=== PATIENT | female | born 1940 | race Caucasian/White ===

== ENCOUNTER 2021-06-15 13:42 | Outpatient (REF) | payer MEDICARE, SELFPAY ==
--- NOTE | ~2021-06-15 | US_ITS ---
EXAMINATION: US VENOUS ULTRASOUND WITH DOPPLER LOWER EXTREMITY, LEFT CLINICAL INFORMATION: Edema COMPARISON: None TECHNIQUE: Ultrasound of the deep veins is performed from the hip to the calf with compression sonography and color and pulse Doppler assessment. Spectral analysis with color-flow imaging is performed. FINDINGS: There is normal venous compression and respiratory variation and augmented flow. The visualized common femoral vein, superficial femoral vein, profunda femoral vein, popliteal vein, and the trifurcation region shows no evidence of deep venous thrombosis. There is no significant popliteal fossa cyst. In the proximal thigh there are enlarged lymph nodes. There is a 4.5 x 2.2 x 2.3 cm lymph node. There is an adjacent 4.2 x 2.2 x 3.2 cm left. There is a small popliteal fossa cyst. Measures 1.5 x 0.5 x 0.8 cm. If the patient's symptoms persist, followup ultrasound in 5 days 7 days might be of value to exclude proximal propagation from a non-visualized calf vein. US/US venous duplex LE LT IMPRESSION: 1. No DVT demonstrated in the left lower extremity. 2. Enlarged lymph nodes in the left proximal thigh. 3. Small popliteal cyst.
== END 2021-06-15 13:43 | disposition home or self-care (01) ==
LOC: HO.US 13:42
PROVIDERS: PCP Internal Medicine; Visit Provider Nurse Practitioner Primary Care
DX: R60.0 Localized edema (principal); M79.89 Other specified soft tissue disorders
CPT/HCPCS: 93971

== ENCOUNTER 2021-06-29 11:43 | Outpatient (REF) | payer MEDICARE, SELFPAY ==
--- NOTE | ~2021-06-29 | MM_ITS ---
EXAMINATION: MM SCREENING DIGITAL BREAST TOMOSYNTHESIS, BILATERAL CLINICAL INFORMATION: Age 81. Screening mammography. Currently under treatment for lymphoma. Family history breast cancer, daughter. Prior outside mammography from [place] currently unavailable. Personal history unilateral breast cancer and contralateral benign breast biopsy. COMPARISON: None. TECHNIQUE: Digital breast tomosynthesis is performed in both the craniocaudal and mediolateral oblique views along with computer-aided detection (CAD). Synthesized 2D images are generated from the tomosynthesis. Case discussed with the process safety engineering technologist. Technically challenging exam. Images optimized to patient capabilities. Breast images obtained. FINDINGS: The breasts are heterogeneously dense, which may obscure small masses (ACR BI-RADS breast composition Category c). Breast tissue composition borders on extremely dense. There is asymmetry of the breast size, right smaller. Neither breast shows significant mass or architectural abnormality or abnormal calcifications. There is biopsy clip marker mid upper outer left breast and probable clip marker mid upper right breast. Scattered benign round and coarse and vascular calcifications are present. Skin contours are smooth. The axilla are unremarkable. MM/MM tomosynthesis screening BI IMPRESSION: No mammographic evidence of malignancy. ASSESSMENT: BI-RADS 2: Benign RECOMMENDATION: Routine annual mammography screening. This patient's information was entered into a reminder system with a target due date for their next mammogram.
== END 2021-06-29 11:44 | disposition home or self-care (01) ==
LOC: HO.MAMMO 11:43
PROVIDERS: Visit Provider Internal Medicine
DX: Z12.31 Encounter for screening mammogram for malignant neoplasm of breast (principal)
CPT/HCPCS: 77063; 77067

== ENCOUNTER 2021-10-29 12:23 | Outpatient (REF) | payer MEDICARE, SELFPAY ==
--- NOTE | ~2021-10-29 | XR_ITS ---
EXAMINATION: XR chest 2V CLINICAL INFORMATION: Pain COMPARISON: No prior chest x-ray available in our system for comparison at the time of this dictation. TECHNIQUE: XR chest 2V Lungs and Kaylyn: Mild increased interstitial lung markings otherwise Both lungs are clear. Pleura: Normal. Costophrenic angles are sharp. No pneumothorax. Heart: The heart is normal in size. Mediastinum: The mediastinum is within normal limits.. Bones: Skeletal structures included are normal for patient's age. XR/XR chest 2V IMPRESSION: Mild nonspecific diffuse increased interstitial lung markings, exam otherwise normal.
== END 2021-10-29 12:24 | disposition home or self-care (01) ==
LOC: HO.LAB 12:23
PROVIDERS: PCP Internal Medicine; Visit Provider Internal Medicine
DX: M54.9 Dorsalgia, unspecified (principal); D64.9 Anemia, unspecified; E11.9 Type 2 diabetes mellitus without complications
CPT/HCPCS: 71046

== ENCOUNTER 2021-12-28 13:11 | Outpatient (REF) | payer MEDICARE, SELFPAY ==
--- NOTE | ~2021-12-28 | XR_ITS ---
EXAMINATION: XR CHEST CLINICAL INFORMATION: Cough COMPARISON: Previous chest x-ray October 2021 TECHNIQUE: 2 views of the chest were obtained. FINDINGS: No significant abnormality is noted involving the heart, lungs, mediastinum, bony thorax or soft tissues. There are degenerative changes of the spine. XR/XR chest 2V IMPRESSION: No evidence for acute disease in the chest.
== END 2021-12-28 13:12 | disposition home or self-care (01) ==
LOC: HO.XRAY 13:11
PROVIDERS: PCP Internal Medicine; Visit Provider Internal Medicine
DX: J40 Bronchitis, not specified as acute or chronic (principal)
CPT/HCPCS: 71046

== ENCOUNTER → 2022-03-07 15:22 | Outpatient (BNVA) | payer SELFPAY | PROVIDERS: PCP General Practice; Visit Provider Internal Medicine | DX: U09.9 Post COVID-19 condition, unspecified (principal); R05.9 Cough, unspecified | CPT/HCPCS: 99212 ==

== ENCOUNTER → 2022-04-04 12:36 | Outpatient (REF) | payer SELFPAY ==
--- NOTE | 2022-04-04 12:41 | HM_ITS ---
Conclusion: 1. Patient was monitored for total period of 2 days 2. Baseline was normal sinus rhythm with average heart of 72 beats per minute 3. No significant pauses or bradycardia noted 4. Occasional PACs with total burden of 0.5% 5. No patient reported events MTDD
== END ==
LOC: HO.CARD 12:36
PROVIDERS: Visit Provider Registered Nurse
DX: R00.0 Tachycardia, unspecified (principal)
CPT/HCPCS: 93225

== ENCOUNTER 2022-08-17 07:50 | Outpatient (REF) | payer MEDICARE, SELFPAY ==
--- NOTE | ~2022-08-17 | MM_ITS ---
EXAMINATION: MM SCREENING DIGITAL BREAST TOMOSYNTHESIS, BILATERAL CLINICAL INFORMATION: Screening. Asymptomatic. Personal history lymphoma. COMPARISON: Mammography: 06/29/2021 (new baseline). TECHNIQUE: Digital breast tomosynthesis is performed in both the craniocaudal and mediolateral oblique views along with computer-aided detection (CAD). Synthesized 2D images are generated from the tomosynthesis. Additional right MLO view is provided. FINDINGS: The breasts are heterogeneously dense, which may obscure small masses (ACR BI-RADS breast composition Category c). Breast tissue composition borders on extremely dense. Parenchymal pattern is similar to prior new baseline exam. Again, there is decreased right breast size consistent with prior surgery. There are biopsy clip markers mid upper right breast and mid outer left breast again seen. There is no significant mass or developing density. No architectural abnormality. There are scattered bilateral benign vascular and round and coarse calcifications. The axilla and skin contours are unremarkable. No significant changes. MM/MM tomosynthesis screening BI IMPRESSION: -No significant changes from prior new baseline exam. -No mammographic evidence of malignancy. ASSESSMENT: BI-RADS 2: Benign RECOMMENDATION: Routine annual mammography screening. This patient's information was entered into a reminder system with a target due date for their next mammogram.
== END 2022-08-17 07:51 | disposition home or self-care (01) ==
LOC: HO.MAMMO 07:50
PROVIDERS: PCP Registered Nurse; Visit Provider General Practice
DX: Z12.31 Encounter for screening mammogram for malignant neoplasm of breast (principal)
CPT/HCPCS: 77063; 77067

== ENCOUNTER 2022-10-18 14:27 | Outpatient (REF) | payer MEDICARE, SELFPAY ==
[2022-10-18 16:53] LABS: Alanine Aminotransferase 12 U/L (0-31); Albumin Level 4.1 g/dL (3.5-5.0); Alkaline Phosphatase 99 U/L (39-117); Anion Gap 13 (12-20); Aspartate Amino Transferase 14 U/L (5-31); Bilirubin Total 0.3 mg/dL (0.0-1.0); Blood Urea Nitrogen 16 mg/dL (9-16); Calcium 10.7 mg/dL (8.4-10.2); Carbon Dioxide 27 mmol/L (22-29); Chloride 106 mmol/L (96-108); Estimated Glomerular Filt Rate > 60; Glucose Random 70 mg/dL (60-115); Potassium 4.1 mmol/L (3.3-5.1); Sodium 142 mmol/L (135-145); Total Protein 7.5 g/dL (6.5-8.0)
[2022-10-18 17:11] LABS: TSH reflex Free T4 0.83 uIU/mL (0.32-4.0)
== END 2022-10-18 14:28 | disposition home or self-care (01) ==
LOC: HO.HHCL 14:27
PROVIDERS: Visit Provider General Practice
DX: D51.9 Vitamin B12 deficiency anemia, unspecified (principal)
CPT/HCPCS: 36415; 80053; 84443; 84550

== ENCOUNTER 2022-12-19 14:52 | Outpatient (REF) | payer MEDICARE, SELFPAY ==
--- NOTE | ~2022-12-19 | XR_ITS ---
EXAMINATION: XR CHEST 2 VIEW CLINICAL INFORMATION: Cough COMPARISON: 12/28/2021 TECHNIQUE: PA and lateral views of the chest obtained. FINDINGS: The lungs are clear. There are no pleural effusions. The cardiomediastinal silhouette is normal. Spondylotic changes are again evident in the dorsal spine. XR/XR chest 2V IMPRESSION: No acute cardiopulmonary disease.
== END 2022-12-19 14:53 | disposition home or self-care (01) ==
LOC: HO.HHCX 14:52
PROVIDERS: Visit Provider Emergency Medicine
DX: R05.1 Acute cough (principal)
CPT/HCPCS: 71046

== ENCOUNTER → 2023-07-03 12:44 | Outpatient (REF) | payer MEDICARE, SELFPAY ==
--- NOTE | 2023-07-03 12:49 | CA_ITS ---
Transthoracic Echocardiogram Patient (Last, First, Middle): Bhumi Poole, Gender: Female Date of : 1940 Age: 83 Procedure Date: 07/03/2023 Procedure Type: Transthoracic Echocardiogram Location: OP Height: 157.48 cm Weight: 58.97 kg BSA: 1.59 m2 Heart Rate: 101 bpm BP: 168 / 80 mmHg Shaper And Presser: SB Referring MD: Brooke Tejeda MD Symptoms: R01.1 MURMUR Study Quality: Fair ECG Rhythm: Tachycardia Conclusions: - The left ventricular systolic function is normal. The visually estimated ejection fraction is between 60-65%. - There is moderate septal asymmetric hypertrophy. - Paradoxical low-flow, low gradient severe aortic stenosis. Findings Procedure Information The quality of the study was technically difficult. The study quality is limited by patients body habitus. Left Ventricle Normal left ventricular cavity size. The left ventricular systolic function is normal. The visually estimated ejection fraction is between 60-65%. There is no evidence of regional wall motion abnormalities. Diastolic function is indeterminate on the basis of available data. There is moderate septal asymmetric hypertrophy. Right Ventricle Normal right ventricular cavity size and systolic function. Atria Both atria are normal in size. Aortic Valve There is moderate calcification of the aortic valve. The peak aortic velocity is 2.80 m/s with a calculated peak gradient of 31 mmHg. The mean gradient is 19 mmHg. The aortic valve area is 0.70 cm2. There is no aortic valve regurgitation. Dimensionless index 0.29. Stroke volume index 26 ml/m2. Overall, findings suggestive of paradoxical low-flow, low gradient severe aortic stenosis. Mitral Valve There is mild mitral annular calcification. There is no mitral valve regurgitation. There is no mitral valve stenosis. Pulmonic Valve The pulmonic valve is likely normal. Tricuspid Valve There is trace tricuspid valve regurgitation. There is no evidence of pulmonary hypertension. Great Vessels The asc aorta is normal in size. Venous The inferior vena cava is normal in size and collapses less than 50% with inspiration. Pericardium/Pleural There is no evidence of pericardial effusion. Prior Study Comparison No prior study available for comparison. Measurements 2D Linear Measurements IVSd: 1.31 0.6-0.9/0.6-1.0 cm LVIDd: 4.13 3.9-5.3/4.2-5.9 cm LVIDd Index: 2.60 2.4-3.2/2.2-3.1 cm/m2 LVIDs: 2.65 2.0-3.6 cm LVPWd: 0.75 0.7-1.1 cm LA Diam: 3.60 2.7-3.8/3.0-4.0 cm LAIDs Index: 2.26 1.5-2.3 cm/m2 LV Mass: 173.76 67-162/88-224 g LV Mass Index: 109.28 43-95/49-115 g/m2 LVOT Diam: 1.80 3.0+(-)1.3 cm 2D Systolic Function EF 4C: 53.70 >55% Mitral Valve MV Pk E: 0.84 MV PK A: 1.43 E/A: 0.60 E'Lateral: 3.81 E/E' Lat: 22.10 Aortic Valve AoV Pk Baljinder: 2.80 AoV Mn Baljinder: 2.02 AoV VTI: 0.61 AoV Pk Grad: 31.00 Aov Mn Grad: 19.00 AUBRIE Cont.VTI: 0.70 LVOT LVOT Pk Baljinder: 0.81 LVOT Mn Baljinder: 0.55 LVOT VTI: 0.17 LVOT Pk Grad: 3.00 LVOT Mn Grad: 1.00 LVOT Diam: 1.80 LVOT Area: 2.54 Diastolic Function MV Pk E: 0.84 MV Pk A: 1.43 E/A: 0.60 E' Laterial: 3.81 E/E' Lat: 22.10 Right Ventricle TAPSE (mm): 18.40 TVS' Baljinder: 11.00 Tricuspid Valve TR Pk Baljinder: 2.33 TR Pk Grad: 22.00 RA Press: 8.00 RVSP: 30.00 Great Vessels Aorta Sinus of Valsalva: 2.50 2.0-3.5 cm Ao Asc: 3.30 2.1-3.4 cm Pulmonary Valve PV Pk Baljinder: 0.79 Peak PV Grad: 2.00 Updated in Other Vendor System with Status of Final Moody Durán MD electronically signed on 07/04/2023 10:21:02 AM with status of Final
== END ==
LOC: HO.CARD 12:44
PROVIDERS: PCP General Practice; Visit Provider General Practice
DX: R01.1 Cardiac murmur, unspecified (principal)
CPT/HCPCS: 93306

== ENCOUNTER → 2023-07-03 12:49 | Outpatient (BNV) | payer MEDICARE, SELFPAY | PROVIDERS: PCP General Practice; Visit Provider Internal Medicine | DX: I35.0 Nonrheumatic aortic (valve) stenosis (principal); I35.8 Other nonrheumatic aortic valve disorders; I34.81 Nonrheumatic mitral (valve) annulus calcification | CPT/HCPCS: 93306 ==

== ENCOUNTER 2023-08-23 09:55 | Outpatient (REF) | payer MEDICARE, SELFPAY ==
--- NOTE | ~2023-08-23 | MM_ITS ---
EXAMINATION: MM SCREENING DIGITAL BREAST TOMOSYNTHESIS, BILATERAL CLINICAL INFORMATION: Screening. Asymptomatic. COMPARISON: Mammography: This study is compared with prior exams dating back to 2021. TECHNIQUE: Digital breast tomosynthesis is performed in both the craniocaudal and mediolateral oblique views along with computer-aided detection (CAD). Synthesized 2D images are generated from the tomosynthesis. FINDINGS: The breasts are heterogeneously dense, which may obscure small masses (ACR BI-RADS breast composition Category c). The right breast is smaller than the left breast from prior surgery. There are no significant masses, abnormal calcifications, or other abnormalities. Biopsy tissue markers are present in each breast. There are bilateral, benign breast calcifications. MM/MM tomosynthesis screening BI IMPRESSION: No mammographic evidence of malignancy. ASSESSMENT: BI-RADS BI-RADS 2 - Benign Findings RECOMMENDATION: Routine annual mammography screening. 1 year F/U This examination should not preclude the clinical evaluation of a suspicious palpable abnormality. This patient's information was entered into a reminder system with a target due date for their next mammogram.
== END 2023-08-23 09:56 | disposition home or self-care (01) ==
LOC: HO.MAMMO 09:55
PROVIDERS: PCP General Practice; Visit Provider General Practice
DX: Z12.31 Encounter for screening mammogram for malignant neoplasm of breast (principal)
CPT/HCPCS: 77063; 77067

== ENCOUNTER → 2023-08-23 10:00 | Outpatient (BNV) | payer MEDICARE, SELFPAY | PROVIDERS: PCP General Practice; Visit Provider Radiology Diagnostic Radiology | DX: Z12.31 Encounter for screening mammogram for malignant neoplasm of breast (principal) | CPT/HCPCS: 77063; 77067 ==

== ENCOUNTER 2023-10-28 09:19 | Outpatient (AMB) | payer MEDICARE, SELFPAY ==
[2023-10-28 09:26] VITALS: BP 172/88; PULSE 100; BMI 24.9
--- NOTE | 2023-10-28 09:26 | MHC.OFFVIS ---
Vital Signs 10/28/23 09:26 Height 5 ft 2 in Weight 136 lb 3.931 oz BMI 24.9 BP 172/88 H Blood Pressure Location Lt brachial Position Sitting Pulse 100 Intake Visit Reasons: transit planner/dr gutierrez/severe aortic stenosis Collector Required: Yes Collector Services: Collector Present Collector Name: Luz Elena [id number]/monik Accompanied by: Daughter Allergies No Known Allergies Allergy (Verified 03/07/22 15:47) Medication List - Last Reconciled 10/28/23 by Moody Durán MD albuterol sulfate 90 mcg/actuation 2 puffs inhalation Q6H PRN allopurinol 300 mg PO DAILY blood sugar diagnostic ([employer] Ultra Test strips) As directed losartan 100 mg PO DAILY metformin 500 mg PO DAILY metoprolol succinate ER 50 mg PO DAILY HPI Comments Details: Bhumi is here for consultation regarding aortic stenosis. A recent echocardiogram at shown paradoxical, low-flow, low gradient severe aortic stenosis. Patient herself denies any symptoms like angina or shortness of breath. Her daughter states that she does well without any concerns. She has a history of lymphoma but that is also under control. Will need to get records from [facility] about that part. Currently not on chemotherapy. Otherwise, no previous history like coronary artery disease or myocardial infarction or cardiomyopathy or in fact anything cardiac related. [facility] Medical History (Updated 10/28/23 @ 10:05 by Moody Durán MD) Type 2 diabetes mellitus with unspecified complications Lymphoma Essential hypertension Cough Post covid-19 condition, unspecified Family History Father No problems noted. Mother No problems noted. Social History (Updated 10/28/23 @ 09:33 by Vanda Hawley CMA) Comment: social/rare Patient Tobacco Use Status: Former Tobacco user Review of Systems Const Denies chills, Denies daytime sleepiness, Denies fatigue, Denies fever(s), Denies poor appetite, Denies snoring, Denies stops breathing during sleep, Denies weakness, Denies weight gain and Denies weight loss Eyes Denies loss of vision ENT Denies dizziness and Denies hearing loss Card Denies chest pain, Denies irregular heart rhythm, Denies claudication, Denies leg edema, Denies lightheadedness, Denies palpitations, Denies dyspnea on exertion and Denies orthopnea Resp Denies cough, Denies excessive phlegm production, Denies dyspnea on exertion, Denies snoring and Denies wheezing GI Denies abdominal pain, Denies hematochezia, Denies change in bowel habits, Denies nausea and Denies vomiting Denies urinary frequency and Denies dysuria Musc Denies arthralgias, Denies muscle weakness, Denies numbness and Denies other Skin/Breast Denies nail changes and Denies rash Neuro Denies Abnormal speech present, Denies dizziness, Denies loss of vision, Denies memory loss, Denies numbness and Denies weakness Psych Denies depression and Denies memory loss Endo Denies fatigue and Denies palpitations Chester/Lymph Denies easy bruising Aller/Immun Denies wheezing Physical Exam Vital Signs: Last Vital Signs Pulse 100 10/28/23 09:26 BP 172/88 H 10/28/23 09:26 BMI result Body Mass Index 24.9 Const General: comfortable and no acute distress Orientation/consciousness: patient oriented x3 HEENT Other: Unremarkable Head: Yes normal to inspection Neck Neck: Yes normal visual inspection Chest Chest palpation & inspection: normal inspection of the chest Resp Auscultation: clear to auscultation bilaterally Cardio Palpation: normal PMI Heart sounds: S1 normal heart sound present, S2 abnormal (Soft), no gallops, Murmur heart sound present systolic III/ and no rubs GI Palpation (GI): Soft to palpation Back/Spine/Pelvis Other: unremarkable Skin General skin exam: no rashes or lesions noted Neuro General: patient oriented x3 Speech: No Abnormal speech present Extrem General: Yes normal to inspection Psych Mental Status: mental status grossly normal Office Procedures EKG Details: EKG with sinus tachycardia at 101/Min; no significant ST-T changes; [place] [address]-[id number], Complete Assessment & Plan Assessment & Plan (1) Non-rheumatic aortic stenosis: Code(s): I35.0 - Nonrheumatic aortic (valve) stenosis Category: Medical Plan: In the recent echocardiogram, LVEF is 60-65%. There is moderate septal hypertrophy. With regard to the aortic valve, moderately calcified. Mean gradient is 19 mm Hg. Calculated valve area of 0.7 sq cm. Dimensionless index 0.29. Overall, thought to be paradoxical, low-flow, low gradient, severe aortic stenosis. Pathophysiology of this discussed with patient and daughter. slitter creaser slotter helper used. As she feels quite well, they would like to postpone any intervention at this time. We discussed about TAVR but they would like to hold off. That seems reasonable in the absence of symptoms. We will recheck echocardiogram in March or so and follow her that time. In the interim, if any concerns like dizziness, chest pain, shortness of breath or any other cardiac concerns, advised him to immediately contact us. (2) Essential hypertension: Code(s): I10 - Essential (primary) hypertension Category: Medical Plan: Blood pressure is high but she is also quite anxious. No specific management for now. Continue usual medications. (3) Lymphoma: Code(s): C85.90 - Non-Hodgkin lymphoma, unspecified, unspecified site Category: Medical Plan: Per daughter, under control. Not on chemotherapy. Will review records from [facility]. Orders: Orders CA echo transthoracic complete 4 Months I35.0 - Nonrheumatic aortic (valve) stenosis Coding Level of Care Code New Pt Level 4 (94455) Diagnoses Non-rheumatic aortic stenosis I35.0 Essential hypertension I10 Lymphoma C85.90 CPT Codes EKG - CPT: 44714-[id number], Complete ([id number])
== END 2023-10-28 10:04 | disposition home or self-care (01) ==
PROVIDERS: PCP General Practice; Visit Provider Internal Medicine
DX: I35.0 Nonrheumatic aortic (valve) stenosis (principal); I10 Essential (primary) hypertension; C85.90 Non-Hodgkin lymphoma, unspecified, unspecified site; R00.0 Tachycardia, unspecified
CPT/HCPCS: 93010; 99214

== ENCOUNTER → 2023-10-28 09:19 | Outpatient (BNVA) | payer MEDICARE, SELFPAY | PROVIDERS: PCP General Practice; Visit Provider Internal Medicine | DX: I35.0 Nonrheumatic aortic (valve) stenosis (principal); I10 Essential (primary) hypertension; C85.90 Non-Hodgkin lymphoma, unspecified, unspecified site; R00.0 Tachycardia, unspecified | CPT/HCPCS: 93005; 99212 ==

== ENCOUNTER → 2024-02-27 09:37 | Outpatient (REF) | payer MEDICARE, SELFPAY ==
--- NOTE | 2024-02-27 09:40 | CA_ITS ---
Transthoracic Echocardiogram Patient (Last, First, Middle): Bhumi Poole, Gender: Female Date of : 1940 Age: 83 Procedure Date: 02/27/2024 Procedure Type: Transthoracic Echocardiogram Location: OP Height: 157.48 cm Weight: 61.24 kg BSA: 1.62 m2 Heart Rate: bpm BP: 140 / 68 mmHg Sprinkler Fitter Apprentice: TO Referring MD: Moody Durán MD Symptoms: I35.0 - Nonrheumatic aortic (valve) stenosis Study Quality: Fair Conclusions: - Normal left ventricular cavity size. There is normal left ventricular wall thickness. The left ventricular systolic function is hyperdynamic. The visually estimated ejection fraction is >70%. - Normal right ventricular cavity size. There is low normal right ventricular systolic function. - The left atrium is moderately dilated. - There is severe calcification of the aortic valve. There is severe aortic valve stenosis. The peak aortic velocity is 2.88 m/s. The mean gradient is 19 mmHg. The aortic valve area is 0.57 cm2. SVI 27. Findings Procedure Information The study quality is limited by the patients inability to tolerate the test. Left Ventricle Normal left ventricular cavity size. There is normal left ventricular wall thickness. The left ventricular systolic function is hyperdynamic. The visually estimated ejection fraction is >70%. There is no evidence of regional wall motion abnormalities. Diastolic function is indeterminate on the basis of available data. Right Ventricle Normal right ventricular cavity size. There is low normal right ventricular systolic function. Atria The left atrium is moderately dilated. The right atrium is normal in size. Aortic Valve There is severe calcification of the aortic valve. There is severe aortic valve stenosis. The peak aortic velocity is 2.88 m/s. The mean gradient is 19 mmHg. The aortic valve area is 0.57 cm2. There is no aortic valve regurgitation. Mitral Valve There is severe mitral annular calcification. There is no mitral valve regurgitation. There is no mitral valve stenosis. Pulmonic Valve The pulmonic valve is likely normal. Tricuspid Valve Normal tricuspid valve structure. There is trace tricuspid valve regurgitation. Normal right atrial pressure. There is no evidence of pulmonary hypertension. Great Vessels All visible segments of the aorta are normal in size. Venous The inferior vena cava is normal in size and collapses greater than 50% with inspiration. Pericardium/Pleural There is no evidence of pericardial effusion. Prior Study Comparison Changes noted compared to prior study dated: 07/03/2023. AUBRIE 0.57 cm2. Severe low flow low gradient . Measurements 2D Linear Measurements IVSd: 0.94 0.6-0.9/0.6-1.0 cm LVIDd: 3.96 3.9-5.3/4.2-5.9 cm LVIDd Index: 2.44 2.4-3.2/2.2-3.1 cm/m2 LVIDs: 2.55 2.0-3.6 cm LVPWd: 0.86 0.7-1.1 cm LA Diam: 3.30 2.7-3.8/3.0-4.0 cm LAIDs Index: 2.04 1.5-2.3 cm/m2 LV Mass: 134.68 67-162/88-224 g LV Mass Index: 83.14 43-95/49-115 g/m2 LVOT Diam: 1.80 3.0+(-)1.3 cm Mitral Valve MV VTI: 0.32 MV Pk Baljinder: 1.41 MV Mn Baljinder: 0.70 MV Pk Grad: 8.00 MV Mn Grad: 2.00 MV Pk E: 0.91 MV PK A: 1.10 MV Decel Time: 218.00 E/A: 0.80 E'Lateral: 4.13 E'Medial: 3.59 E/E' Med: 25.30 E/E' Lat: 22.00 PHT: 64.00 MVA PHT: 3.44 MVA Continuity: 1.27 Decel Baxter: 4.17 Aortic Valve AoV Pk Baljinder: 2.88 AoV Mn Baljinder: 2.06 AoV VTI: 0.70 AoV Pk Grad: 33.00 Aov Mn Grad: 19.00 AUBRIE Cont.VTI: 0.57 LVOT LVOT Pk Baljinder: 0.69 LVOT Mn Baljinder: 0.44 LVOT VTI: 0.16 LVOT Pk Grad: 2.00 LVOT Mn Grad: 1.00 LVOT Diam: 1.80 LVOT Area: 2.54 Diastolic Function MV Pk E: 0.91 MV Pk A: 1.10 E/A: 0.80 E'Medial: 3.59 E/E' Med: 25.30 E' Laterial: 4.13 E/E' Lat: 22.00 Right Ventricle TAPSE (mm): 10.00 Tricuspid Valve TR Pk Baljinder: 2.23 TR Pk Grad: 20.00 RA Press: 3.00 RVSP: 23.00 Great Vessels Aorta Sinus of Valsalva: 2.63 2.0-3.[address] [place]: 1.70 1.7-3.4 cm Ao Asc: 3.40 2.1-3.4 cm Updated in Other Vendor System with Status of Final Preet Rebollar MD electronically signed on 02/29/2024 4:08:24 PM with status of Final
--- OUTSIDE RECORDS SUMMARY | 2024-02-27 09:52 | XMS_ITS | Continuity of Care Document ---
Author Organization [facility] Address [address] [place] [phone]- Care Team Providers Care Saw Handle Assembler Name Role Phone Brooke Tejeda MD Primary Care Physician [phone] Encounter [facility] [place] [facility] [place] Date(s): 12/31/23 - 01/30/[facility] [address] [place] [address] Attending Physician: Mary Cordoba Admitting Physician: AdmMary ferrer Referring Physician: Admtr, ArCedric Encounter Type: Triage Allergies, Adverse Reactions, Alerts No Known Allergies Immunizations Given and Recorded Vaccine Date Status Refusal Reason SARS-CoV-2 (COVID-19) mRNA-1273 vaccine 12/26/20 R ecorded SARS-CoV-2 (COVID-19) mRNA-1273 vaccine 05/28/20 R ecorded SARS-CoV-2 (COVID-19) mRNA-1273 vaccine 04/30/20 R ecorded Medications Ferrous Sulfate EC 65 mg, By Mouth, Daily, Refills 0, Maintenance, 05/15/21 11:53:00 PM EDT, Partial fill upon patient request if the prescription is for a schedule II opioid drug. Start Date: 05/15/21 Status: Ordered Repeat number: 1 glipiZIDE 5 mg oral tablet 5 mg, 1, tablet, By Mouth, 2 times a day, Refills 0, Maintenance, 05/15/21 11:49:00 PM EDT, Partial fill upon patient request if the prescription is for a schedule II opioid drug. Start Date: 05/15/21 Status: Ordered Repeat number: 1 losartan 50 mg oral tablet 100 mg, 2, tablet, By Mouth, Daily, # 60 tablet, Refills 0, Tot. Refills 0, Maintenance, 05/26/21 1:23:00 PM EDT, Route to Pharmacy Electronically, [facility], Partial fill upon patient request if the prescription is for a schedule II opioid drug., 157, cm, 05/26/21 5:05:00 EDT, Height, 53.7, kg, 05/19/21 22:36:00 EDT, Dry Weight Start Date: 05/26/21 Status: Ordered Quantity: 60.0 Unit: tablet Repeat number: 1 metFORMIN 500 mg oral tablet 1 tablet = 500 mg, By Mouth, Daily, with meals, # 30 tablet, 0 Refills, Maintenance, 05/15/21 11:49:00 PM EDT, Tablet, Partial fill upon patient request if the prescription is for a schedule II opioiddrug. Start Date: 05/15/21 Status: Ordered Quantity: 30.0 Unit: tablet Repeat number: 1 metoprolol 50 mg oral tablet, extended release 50 mg, 1, tablet, By Mouth, Daily, # 30 tablet, Refills 0, Tot. Refills 0, Maintenance, 05/26/21 1:22:00 PM EDT, Route to Pharmacy Electronically, [facility], Partial fill upon patient request if the prescription is for a schedule II opioid drug., 157, cm, 05/26/21 5:05:00 EDT, Height,53.7, kg, 05/19/21 22:36:00 EDT, Dry Weight Start Date: 05/26/21 Status: Ordered Quantity: 30.0 Unit: tablet Repeat number: 1 Mucinex DM oral tablet, extended release 1 tablet, By Mouth, Every 12 hours, for 14 days, # 28 tablet, 1 Refills, Acute 02/04/24 9:55:00 AM EST, 01/07/24 9:55:00 AM EST, [id number], Partial fill upon patient request if the prescription is for a schedule II opioid drug., 1 tablet By Mouth Every 12 hours,x14 days, 153, cm, 01/07/24 9:17:00 EST, Height, 62.9, kg, 01/07/24 9:17:00 EST, Dry Weight Start Date: 01/07/24 Stop Date: 02/04/24 Status: Ordered Quantity: 28.0 Unit: tablet Repeat number: 2 Vitamin B12 0 Refills, Maintenance, 06/26/22 10:25:00 AM EDT, Partial fill upon patient request if the prescription is for a schedule II opioid drug. Start Date: 06/26/22 Status: Ordered Repeat number: 1 Vitamin C By Mouth, Daily, 0 Refills, Maintenance, 06/26/22 10:25:00 AM EDT, Partial fill upon patient requestif the prescription is for a schedule II opioid drug. Start Date: 06/26/22 Status: Ordered Repeat number: 1 Problem List Condition Confirmation Course Effective Dates Status Health St atus Informant Anemia Confirmed Active Follicular lymphoma Confirmed Active Hypertension Confirmed Active Type 2 diabetes mellitus Confirmed Active Social History Social History Type Response Smoking Status Never (less than 100 in lifetime) entered on: 05/15/21 Sex Sex Representation Female (finding) Patient Care team information Care Team Personnel Name: Lenore Tyler RN Position: [facility] RN Member Role: Primary Care Nurse Name: Jamie Ivey RN Position: S RN Member Role: Primary Care Nurse Name: Brooke Tejeda MD Position: [facility] Physician - Primary Care Member Role: PCP Address: [address] [place] [address], [address] [place] [address] Telecom: Name: Neva Johnston RN Position: [facility] Onco RN Member Role: Primary Care Nurse Name: Charisse Moore RN Position: S Onco RN Member Role: Primary Care Nurse Name: Julius Kelly RN Position: [facility] Onco RN Member Role: Primary Care Nurse Name: Tonya Hugo RN Position: S RN Member Role: Primary Care Nurse Care Team Related Persons Name: BEATRIZ FELIX Name: RADHA FELIX Insurance Providers Guarantor name: [facility] [employer] Plan Information #: 1 Payer: [facility] MEDICARE ADV PPO Member Number: NA Policy Number: NA Group Number: NA
--- OUTSIDE RECORDS SUMMARY | 2024-02-27 09:52 | XMS_ITS | Continuity of Care Document ---
Author Organization [facility] Address [address] [place] [address]- Care Team Providers Care Scada Engineer Name Role Phone Nikhil ZHENG, Brooke Dinero Primary Care Physician Encounter [facility] [place] Date(s): 01/02/24 - 02/01/24 [facility] Care [address] [place] [id number] Encounter Type: Triage Allergies, Adverse Reactions, Alerts [...] 1:23:00 PM EDT, Route to Pharmacy Electronically, [facility], Partial fill upon patient request if [...] 1:22:00 PM EDT, Route to Pharmacy Electronically, [facility], Partial fill upon patient request if [...] EST, 01/07/24 9:55:00 AM EST, ER Tablet, [id number], Partial fill upon patient request if the [...] Team Personnel Name: Lenore Tyler RN Position: S RN Member Role: Primary Care Nurse Name: Jamie Ivey RN Position: S RN Member Role: Primary Care Nurse Name: Brooke Tejeda MD Position: [facility] Physician - Primary Care Member Role: PCP Address: [address] [place] [address], [address] [place] [address] Telecom: Name: Neva Johnston RN Position: [facility] Onco RN Member Role: Primary Care Nurse Name: Charisse Moore RN Position: S Onco RN Member Role: Primary Care Nurse Name: Julius Kelly RN Position: [facility] Onco RN Member Role: Primary Care Nurse Name: Tonya Hugo RN Position: S RN Member Role: Primary Care Nurse Care Team Related Persons Name: BEATRIZ FELIX Name: RADHA FELIX Insurance Providers Guarantor name: [employer] [facility] Plan Information #: 1 Payer: [facility] MEDICARE ADV PPO Member Number: NA Policy Number: NA Group Number: NA
--- OUTSIDE RECORDS SUMMARY | 2024-02-27 09:52 | XMS_ITS | Continuity of Care Document ---
Author Organization [facility] Address [address] [place] [phone]- Care Team Providers Care Banking Representative Name Role Phone Nikhil ZHENG, Brooke Dinero Primary Care Physician [phone] [place] [facility] [place] 01/07/24 - 02/06/24 [facility] [address] [place] [id number] Encounter Type: Triage Allergies, Adverse Reactions, Alerts [...] 1:23:00 PM EDT, Route to Pharmacy Electronically, [facility], Partial fill upon patient request if [...] 1:22:00 PM EDT, Route to Pharmacy Electronically, [facility], Partial fill upon patient request if the prescription is for a schedule II opioid drug., 157, cm, 05/26/21 5:05:00 EDT, Height,53.7, kg, 05/19/21 22:36:00 EDT, Dry Weight Start Date: 05/26/21 Status: Ordered Quantity: 30.0 Unit: tablet Repeat number: 1 Vitamin B12 0 Refills, Maintenance, 06/26/22 10:25:00 [...] Care Nurse Name: Brooke Tejeda MD Position: [facility] Physician - Primary Care Member Role: PCP Address: [address] [place] [address], [address] Telecom: Name: Neva Johnston RN Position: [facility] Onco RN Member Role: Primary Care Nurse Name: Charisse Moore RN Position: [facility] Onco RN Member Role: Primary Care Nurse Name: Julius Kelly RN Position: [facility] Onco RN Member Role: Primary Care Nurse Name: Tonya Hugo RN Position: S RN Member Role: Primary Care Nurse Care Team Related Persons Name: BEATRIZ FELIX Name: RADHA FELIX Insurance Providers Guarantor name: [facility] Plan Information #: 1 Payer: [facility] MEDICARE ADV PPO Member Number: NA Policy Number: NA Group Number: NA
--- OUTSIDE RECORDS SUMMARY | 2024-02-27 09:52 | XMS_ITS | Data Portability ---
Author Organization frenting, [place] - [employer] Address [address] [place] [address] Care Team Providers Care Hand Pleater Name Role Phone WILMA ALLAN Primary Care Provider [phone] [facility] OTHER [facility] OTHER Assessment Encounter Date Assessment Date Assessment LastModified by Organization Details LastModified Time 04/26/2022 04/26/2022 Ms. Bhumi Poole is an 81yoF w/ a PmHx of DM2, HTN who is seen today for a cough. Ms. Poole reports that she became ill last weekend and on Friday was diagnosed with COVID-19 . She states that she has been overall been feeling okay, but has had a congested cough that has not been improving with over the counter medications and is hoping for something for her cough today. No nausea/vomiting, no fevers, believes the cough is productive but unsure of quality. She is not on paxlovid. VSS. Manager [employer] on site reports that she appears well, clear lung sounds bilaterally, ambulating and speaking full sentences without respiratory distress on room air. Presentation consistent with ongoing COVID URI, will give a dose of benzonatate and send rx to pharmacy. Continue ongoing over the counter management, unfortunately now outside of the window for paxlovid. [facility] Not available 04/26/2022 17:22:05 07/14/2023 07/14/2023 I have reviewed and agree with the assessment and plan as documented by the security rep. I provided real time medical direction for this encounter and was immediately available to provide additional phone based assistance as needed. History as noted by security rep. Pt with history of lymphoma, DM and HTN. Pt's daughter reports that the pt has seasonal allergies and for the last month, has had a cough, mostly in the mornings. She also has had post nasal drip, particularly at night time. Cough has been intermittently productive of green sputum. They deny any recent fevers, chills or SOB. Pt had been taking loratidine with some effect but they ran out. Pt also started Mucinex yesterday which has also mildly improved her cough. Daughter is requesting another medication to help her cough. Pt also has flonase at home but has not been using it. On exam, pt appears comfortable, no distress. Vitals normal. Lungs clear. Impression: Pt with about 1 month of intermittently productive cough with post nasal drip, no fevers or SOB. Exam today normal. Pt with what is likely bronchitis, possible related to seasonal allergies. No clinical e/o pneumonia at this time. Pt is prescribe Cetirizine and benzonatate for her cough and is instructed to restart her Flonase and to continue the Mucinex. Pt and daughter told that the benzonatate may not be covered by insurance and that they may need to pay our of pocket for this medication. Pt and daughter instructed to follow up with her primary care team later this week if her symptoms aren't improving with the medications and to call for another visit or seek medical evaluation in the ED with any new or worsening symptoms which are reviewed with them. [email or web address] Not available 07/14/2023 10:29:12 Plan of Treatment Reminders Order Date Submit Date Provider Last Modified By Organization Details Last Modified Time Details Appointments None recorded. Lab urinalysis, dipstick 2022 023 [employer] [facility], [address] [place] [address], [phone], 3 13:14:02 glucose, fingerstick , blood 2022 023 [email or web address] [facility], [address] [place] [address], [phone], 3 13:09:09 Referral None recorded. Procedures None recorded. Surgeries None recorded. Imaging None recorded. Medication Orders benzonatate 100 mg capsule 2022 023 [facility] #[id number], [address] [facility], [place], [place], [id number], 3 15:04:35 cetirizine 10 mg tablet 2023 024 [facility] #[id number], [address] [place], [place], [id number], 4 10:16:11 benzonatate 100 mg capsule 2023 024 [facility] #[id number], [address] [place], [place], [phone], 4 10:16:11 Patient TargetsNo targets recorded. Patient InstructionsNo instructions recorded. Reason for Referral None Reported. Results Created Date Observation Date Name Description Value Unit Range Abnormal Flag Note LastModifiedBy Organization Detail LastModifiedTime 11/07/1911/06/2022 urina lysis , dipst ick Leukocytes neg Not Available [facility] - [facility] [address] [place] [address], [phone], 11/06/2022 13:13:47 11/07/19 23 11/06/2022 urina lysis , dipst ick Nitrite negati ve Not Available Main - Inst [address], [address], 11/06/2022 13:13:47 11/07/19 23 11/06/2022 urina lysis , dipst ick Protein neg Not Available Main - Ins [address], [address], 11/06/2022 13:13:47 11/07/19 23 11/06/2022 urina lysis , dipst ick Blood neg Not Available Main - [facility] [address], [address], 11/06/2022 13:13:47 11/07/19 23 11/06/2022 urina lysis , dipst ick Ketone neg Not Available Main - [facility] [address], [address], 11/06/2022 13:13:47 11/07/19 23 11/06/2022 urina lysis , dipst ick Glucose neg Not Available Main - Ins alexy [address] [facility], [place], [address], 11/06/2022 13:13:47 11/07/19 23 11/06/2022 gluco samir coreas k, blood Blood Glucose: mg/dl 50 Not Available [facility] - [facility] [address] [place], [phone], 11/06/2022 13:09:00 Result Notes None recorded. Medical Equipment None Reported. Medications Name Sig Start Date Stop Date Status Note LastModified by Organization Details LastModified Time multivitamin women 50 tablets TAKE 1 TABLET BY MOUTH EVERY DAY active Not Available Not Available No t Available losartan 50 mg tablet TAKE 1 TABLET BY MOUTH EVERY DAY active Not Available Not Available No t Available metformin 500 mg tablet TAKE 1 TABLET BY MOUTH EVERY DAY WITH MEAL active Not Available Not Available No t Available BD Alcohol Swabs USE EVERY DAY WITH GLUCOMETER active Not Available Not Available N ot Available cetirizine 10 mg tablet TAKE 1 TABLET BY MOUTH EVERY DAY FOR SEASONAL ALLERGIES active Not Available Not Available No t Available azithromycin 250 mg tablet TK 2 TS PO ON DAY 1, THEN TK 1 T PO D FOR 4 DAYS active Not Available Not Available No t Available metoprolol succinate ER 50 mg tablet,exten ded release 24 hr TAKE 1 TABLET BY MOUTH EVERY DAY active Not Available Not Available No t Available senna 8.6 mg tablet TAKE 2 TABLETS BY MOUTH EVERY DAY active Not Available Not Available No t Available FreeStyle Lancets 28 gauge USE 1 LANCET BY SKIN ROUTE EVERY DAY active Not Available Not Available No t Available ondansetron HCl 4 mg tablet TAKE 1 TABLET BY MOUTH EVERY 8 HOURS NEEDED FOR NAUSEA OR VOMITING active Not Available Not Available No t Available tramadol 50 mg tablet TAKE 1/2 TABLET BY MOUTH EVERY 8 HOURS NEEDED FOR PAIN active Not Available Not Available No t Available guaifenesin 100 mg/5 mL oral liquid TAKE 10 MILLILITER BY ORAL ROUTE EVERY 4 HOURS NEEDED. PLEASE DISPENSE DIABETIC COUGH active Not Available Not Available No t Available ketorolac 0.5 % eye drops INSTILL 1 DROP INTO OPERATIVE EYE TWICE A DAY STARTING 2 DAYS BEFORE SURGERY active Not Available Not Available No t Available OneTouch Ultra Test strips TEST BLOOD GLUCOSE DAILY active Not Available Not Available No t Available benzonatate 100 mg capsule TAKE 1 CAPSULE BY MOUTH THREE TIMES DAILY FOR 10 DAYS NEEDED FOR COUGH active Not Available Not Available No t Available hydrocortiso ne 1 % topical cream APPLY 1 THIN LAYER TOPICALLY TO THE AFFECTED AREA TWICE DAILY active Not Available Not Available No t Available losartan 25 mg tablet TAKE 1 TABLETS BY ORAL ROUTE EVERY DAY active Not Available Not Available No t Available docusate sodium 100 mg capsule TAKE ONE CAPSULE BY MOUTH TWICE DAILY active Not Available Not Available No t Available allopurinol 300 mg tablet TAKE 1 TABLET BY MOUTH EVERY DAY active Not Available Not Available No t Available hydrochlorot hiazide 25 mg tablet TAKE 1 TABLET BY MOUTH EVERY DAY active Not Available Not Available No t Available albuterol sulfate HFA 90 mcg/actuatio n aerosol inhaler INHALE 2 PUFFS BY MOUTH EVERY 4 TO 6 HOURS NEEDED active Not Available Not Available No t Available losartan 100 mg tablet TAKE 1 TABLET BY MOUTH EVERY DAY active Not Available Not Available No t Available fluticasone propionate 50 mcg/actuatio n nasal spray,suspen paula SHAKE LIQUID AND USE 1 SPRAY IN EACH NOSTRIL EVERY MORNING. SHAKE GENTLY. PRIME PUMP BEFORE FIRST USE AND CLEAN TIP AFTER USE active Not Available Not Available No t Available clotrimazole 1 % topical cream APPLY 1 GRAM TOPICALLY TO THE AFFECTED AND SURROUNDING AREAS OF THE SKIN EVERY MORNING AND EVERY EVENING active Not Available Not Available No t Available loratadine 10 mg tablet TAKE 1 TABLET BY MOUTH EVERY DAY active Not Available Not Available No t Available glipizide 5 mg tablet TAKE 1/2 TABLET BY MOUTH EVERY DAY BEFORE MEALS active Not Available Not Available No t Available amoxicillin 875 mg-potassium clavulanate 125 mg tablet TAKE 1 TABLET BY MOUTH TWICE DAILY FOR 7 DAYS active Not Available Not Available No t Available amoxicillin 500 mg-potassium clavulanate 125 mg tablet TAKE 1 TABLET BY MOUTH EVERY 12 HOURS active Not Available Not Available No t Available azithromycin 500 mg tablet TAKE 1 TABLET BY MOUTH DAILY FOR 3 DAYS active Not Available Not Available N ot Available olopatadine 0.2 % eye drops active Not Available Not Available Not Available FeroSul 325 mg (65 mg iron) tablet TAKE 1 TABLET BY MOUTH EVERY DAY active Not Available Not Available No t Available OneTouch Delica Plus Lancet 33 gauge USE DIRECTED TO TEST BLOOD SUGAR ONCE DAILY active Not Available Not Available No t Available BinaxNOW COVID-19 Ag Self Test kit TEST DIRECTED TODAY active Not Available Not Available No t Available Vitals Date Recorded Respiratory rate Heart rate Body temperature Oxygen saturation Oxygen saturation in Arterial blood by Pulse oximetry Systolic blood pressure Diastolic blood pressure Provider Name and Address Organization Details Last Updated DateTime 3 18 /min 66 /min 97.7 [degF] 99 % 99 % 178 mm[Hg] 64 mm[Hg] Not Available [facility] 3 12:51:42 Date Recorded Heart rate Oxygen saturation Oxygen saturation in Arterial blood by Pulse oximetry Body temperature Respiratory rate Body weight Body height Systolic blood pressure Diastolic blood pressure Provider Name and Address Organization Details Last Updated DateTime 4 84 /min 99 % 99 % 97.6 [degF] 14 /min 06833.7 36 g 154.94 cm 137 mm[Hg] 81 mm[Hg] Not Available [facility] 4 10:09:32 Date Recorded Oxygen saturation Oxygen saturation in Arterial blood by Pulse oximetry Body temperature Body weight Body height Heart rate Respiratory rate Systolic blood pressure Diastolic blood pressure Provider Name and Address Organization Details Last Updated DateTime 4 98 % 98 % 98.4 [degF] 97253 g 152.4 cm 90 /min 14 /min 124 mm[Hg] 80 mm[Hg] Not Available [facility] 4 20:55:20 Date Recorded Body temperature Body weight Respiratory rate Oxygen saturation Oxygen saturation in Arterial blood by Pulse oximetry Heart rate Body weight Heart rate Body temperature Respiratory rate Oxygen saturation Oxygen saturation in Arterial blood by Pulse oximetry Systolic blood pressure Diastolic blood pressure Systolic blood pressure Diastolic blood pressure Provider Name and Address Organization Details Last Updated DateTime 3 97.8 [degF] 99073.2 24 g 18 /min 99 % 99 % 72 /min 65675.2 24 g 72 /min 97.8 [degF] 18 /min 99 % 99 % 154 mm[Hg] 64 mm[Hg] 154 mm[Hg] 64 mm[Hg] Not Available [facility] 3 15:20:23 Social History None recorded. Functional Status None recorded. Mental Status None recorded. Family History Nothing Reported. Medical History No medical history recorded. Gynecological HistoryNo gynecological history recorded. Obstetrics History GPAL:G 0 P 0 0 0 0 Past Encounters Encounter ID Performer Location Encounter Start Date Encounter Closed Date Diagnosis/Indication Diagnosis SNOMED-CT Code Diagnosis ICD10 Code [id number] Maria Alejandra Parada MD Main - [facility] [address] [place] [phone] 04/26/2022 15:00:05 04/29/2022 09:43:15 Cough 70909954 R05.9 [id number] Daisy Butler MD Main - [facility] [address] [place] [phone] 11/06/2022 12:51:33 11/06/2022 23:26:09 Elderly fall 504965554 R29.6 Hypoglycemia [id number] E 16.2 [id number] Siddhartha Noyola MD Main - [facility] [address] [place] [id number] 07/14/2023 10:09:30 07/14/2023 17:38:30 Cough [id number] R05.9 [id number] Boris Jaquez MD Main - [facility] [address] [place] [phone] 07/16/2023 20:55:09 07/17/2023 22:05:28 Viral syndrome 991782376 B34.9 Health Concerns Section Related Observation LastModified by Organization Detai ls LastModified Time None Recorded Concern Status LastModified by Organization Details LastModified Time None Recorded Advance Directives Directive None Recorded Payers Encounter Date Sequence Insurance Name Policy Number Policy Hooper Covered Member ID Hooper Member ID Guarantor Name 04/26/2022 1 [employer] (MEDICARE REPLACEMENT/ADV ANTAGE - PPO) Bhumi Poole [id number] Bhumi Poole 11/06/2022 1 [employer] - DOS ON OR AFTER 2022 - MEDICARE [place]VANTAGE [place] (MEDICARE REPLACEMENT/ADV ANTAGE - PPO) Bhumi Poole [id number] Bhumi Poole 07/14/2023 1 [employer] - DOS ON OR AFTER 2022 - DUAL ELIGIBLE - SENIOR LIVING OPTIONS AND ONE CARE (MEDICARE REPLACEMENT/ADV ANTAGE - HMO) Bhumi Poole [id number] Bhumi Poole 07/16/2023 1 [facility] - DOS ON OR AFTER 2022 - DUAL ELIGIBLE - SENIOR LIVING OPTIONS AND ONE CARE (MEDICARE REPLACEMENT/ADV ANTAGE - HMO) Bhumi Poole [id number] Bhumi Poole Notes Date Note Type Note Provider Name and Address Organization Details Recorded Time 04/26/2022 text/html CRC Nursing Assessment: Reason For Request: covid Chief Complaints: Cough PMH: Diabetes Allergies: Unknown Comments: Member has COVID . Member has increased congestion, denies fever and cough. Member has mild sob . Per RN not sure if she was placed on paxlovid Spoke with daughter who stated sometimes her is 05/25 sometimes it its 06/01 ??? ..................... ..................... ..................... ..................... ..................... ..................... ............... Manager [employer] Note From Yaniv Renee: Pt presents A@Ox4 pink warm and dry with clear airway and equal chest rise and fall. Pt c/o cough and weakness. Pt was diagnosed with covid on 04/21 and was not precribed anything for her cough and has been using nyquil and mucinex and hasnt been effective. Pt denies CP sob F/N/V/D. Baseline vitals assessed and recorded. Lungs sounds clear bilaterally . 02 sat 98% . [facility] contacted and 100mg Benzonatate given PO. Prescription for Benzonatate called into her pharmacy: Pt educated on signs that would indicate the ED. Pt advised to follow up with PCP. ..................... ..................... ..................... ..................... ..................... ..................... ............... Disposition: Misty Maria Alejandra Parada MD [address], [place], [phone], [place] [employer] 04/26/2022 17:22:09 11/06/2022 text/html HPI: HX: DM 2, HTN, Sinus tach. Neuropathy Fell at home getting up to the BR independently at approx 1am. Took one step and then fell. Got herself up from floor.Reported it to Daughter this morning. Has bruise on chin and tip of nose. No LOC per patient. Eating breakfast currently. Some muscular pain in shoulders and neck. Recent BS good per Daughter BP a bit high yesterday number no reported. Patient may benefit from Walker and bedside commode. ..................... ..................... ..................... ..................... ..................... ..................... ............... CRC Nursing Assessment: Comments: CRC RN did not require any additional information to process this visit. ..................... ..................... ..................... ..................... ..................... ..................... ............... Manager [employer] Note From Joe Corona: PT sustained a mechanical fall last night with a head strike causing a face injury, no LOC. PT was normal in appearance and reports neck pain at a 7 out of 10 non-radiating. PT sustained a fall months ago causing a head injury and family reports that have requested a walker and additional services. PT denies headache, lightheadedness and dizziness. PT reports standing too fast when she became imbalanced and fell from standing to her bilateral knees then chin. PT reports blood in her mouth after falling with swelling and laceration noted to inner lower lip at gum line. A Fast ED was performed and was negative with pupils at 3 MM reactive, normal speech. FBS at 50. UA dipstick was performed and uploaded. MD contacted and advised to withhold glipizide and follow up with PCP related to BGS, apply cold compress to affected area. PT education was provided related to symptom worsening and PT was advised to seek assistance from family when moving in the home. [facility] Lab Orders: urinalysis, dipstick: Performed Comment: Unremarkable glucose, fingerstick, blood: Performed Comment: 50-Rx Glipizide discussed w/ family and PT ..................... ..................... ..................... ..................... ..................... ..................... ............... Disposition: Fulfilled Daisy Butler MD [address] [facility],[address], [place], [phone], [employer] 11/06/2022 13:53:33 07/14/2023 text/html This was a super vised home visit with security rep Ramiro Jean. HPI: Hx: Follicular lymphoma.Daughter calling as patient bothered by persistent cough and weakness for several weeks. Phlegm noted now to be green. No fever or ear pain. ..................... ..................... ..................... ..................... ..................... ..................... ............... CRC Nurse Triage Notes (Princess Mayo): Comments: CRC RN DID NOT NEED FURTHER INFO ..................... ..................... ..................... ..................... ..................... ..................... ............... Manager [employer] Note From Ramiro Jean: Pt reports for the last month she is waking up with a cough producing yellow sputum. Pt the cough is only for the first couple hours of the morning. Pt denies any CP, SOB, RANDLE, f/n/v/d. Pt taking mucinex with some relief. Pt has a hx of seasonal allergies, has fluticasone at home but does not use it and stopped taking her loratadine approx 6 weeks ago (ran out of refills). Pt is alert, NAD. VSS. Afebrile. Non focal neuro exam. Normal gait. Lungs CTA. Benign ABD exam. No LE edema. Pt? s sx seem c/w seasonal allergies. I recommend restarting the fluticasone bid, adding cetirizine qd and continuing the mucinex. Pt/daughter educated on prescriptions. Pt/daughter instructed to f/u with PCP later this week and to seek emergent medical care for new or worsening sx, which are reviewed with them. ..................... ..................... ..................... ..................... ..................... ..................... ............... Disposition: Misty Noyola MD [address] [facility],[address], [place], [phone], [facility] [email or web address] 07/14/2023 11:16:26 07/16/2023 text/html HPI: Call returned to Bhumi Poole to triage below. Spoke with daughter who is on HIPAA. Pt seen last week by OgorodALINA. Pt having yellow discharge on right eye x 1 day. Pt having redness of white of eye. No swelling of eye lid. No itching or pain. Also having nasal secretions. Pt eye was crusted shut this morning. Pt advised of disposition, agrees to Marv eval as unable to come into [facility] and no standing order for antibiotic eye drops at our facility. Confirmed allergies and contact information including address. ..................... ..................... ..................... ..................... ..................... ..................... ............... CRC Nurse Triage Notes (Princess Mayo): Comments: CRC RN DID NOT NEED FURTHER INFO Member is safe and stable to wait till 07/16 ..................... ..................... ..................... ..................... ..................... ..................... ............... Manager [employer] Note From Fred Lawrence: Patient conscious alert and oriented times three. Information through Audience Coordinator due to strong language barrier. Patient complains of burning itching, redness to right eye times six hours. Patient has been being treated for a viral cold symptoms with benzonatate and cetirizine. Patient reports blurred vision in right eye. Patient denies any other pain or complaints. Patient reports cough is better than it was on Friday.[place] warm and dry, secondary exam unremarkable. right eye red with some pus, no swelling. Pic attached [facility] recommends, supportive care, including wet compresses, and lubricating eyedropsPatient and daughter caregiver demonstrate understanding of condition and plan. Patient states she will follow up with rebar worker MAXIMO. Red flags and patient education discussed ..................... ..................... ..................... ..................... ..................... ..................... ............... Disposition: Fulfilled Boris Jaquez MD [address] [facility],[address], [place], [address], [employer] 07/16/2023 21:41:18 OBGyn Episode No OBEpisode recorded.
== END ==
LOC: HO.CARD 09:37
PROVIDERS: PCP General Practice; Visit Provider Internal Medicine
DX: I35.0 Nonrheumatic aortic (valve) stenosis (principal)
CPT/HCPCS: 93306

== ENCOUNTER → 2024-02-27 09:40 | Outpatient (BNV) | payer MEDICARE, SELFPAY | PROVIDERS: PCP General Practice; Visit Provider Internal Medicine Cardiovascular Disease | DX: I35.0 Nonrheumatic aortic (valve) stenosis (principal); I35.8 Other nonrheumatic aortic valve disorders; I34.81 Nonrheumatic mitral (valve) annulus calcification | CPT/HCPCS: 93306 ==

== ENCOUNTER 2024-03-17 10:33 | Outpatient (AMB) | payer OTHER, SELFPAY ==
--- NOTE | 2024-03-17 10:45 | A.OFFVIS_ITS ---
Vital Signs 03/17/24 10:46 Height 5 ft 2 in Weight 138 lb 0.15 oz BMI 25.2 BP 134/56 L Blood Pressure Location Lt brachial Position Sitting Pulse 70 Pulse Source Pulse Oximeter Intake Visit Reasons: 5 mth f/up Administrative Library Assistant Required: Yes Administrative Library Assistant Services: Administrative Library Assistant Present Administrative Library Assistant Name: lizzie [phone] Accompanied by: Daughter Allergies No Known Allergies Allergy (Verified 03/07/22 15:47) Medication List - Last Reconciled 03/17/24 by Moody Durán MD albuterol sulfate 90 mcg/actuation 2 puffs inhalation Q6H PRN allopurinol 300 mg PO DAILY blood sugar diagnostic (KeyView Ultra Test strips) As directed losartan 100 mg PO DAILY metformin 500 mg PO DAILY metoprolol succinate ER 50 mg PO DAILY HPI Comments Details: Bhumi returns for follow-up regarding aortic stenosis. Patient herself does not have any angina or shortness of breath or any cardiac symptoms. She states she is actually getting along fine and plans to go to [place] in the next couple of weeks for a short vacation. Otherwise, has a history of lymphoma but under control. Otherwise, no previous history like coronary artery disease or myocardial infarction or cardiomyopathy or in fact anything cardiac related. [facility] Medical History (Updated 10/28/23 @ 10:05 by Moody Durán MD) Type 2 diabetes mellitus with unspecified complications Lymphoma Essential hypertension Cough Post covid-19 condition, unspecified Family History Father No problems noted. Mother No problems noted. Social History Comment: social/rare Patient Tobacco Use Status: Former Tobacco user Review of Systems Const Denies chills, Denies fatigue, Denies fever(s), Denies weight gain and Denies weight loss ENT Denies dizziness Card Denies chest pain, Denies leg edema, Denies lightheadedness, Denies palpitations, Denies dyspnea on exertion, Denies orthopnea and Denies other Resp Denies cough and Denies dyspnea on exertion GI Denies hematochezia and Denies change in stool character Musc Denies abnormal gait, Denies muscle weakness, Denies numbness, Denies radiating pain into limb and Denies tingling Neuro Denies Abnormal speech present, Denies abnormal gait, Denies dizziness, Denies numbness and Denies tingling Endo Denies fatigue and Denies palpitations Physical Exam Vital Signs: Last Vital Signs Pulse 70 03/17/24 10:46 BP 134/56 L 03/17/24 10:46 BMI result Body Mass Index 25.2 Const General: comfortable and no acute distress Orientation/consciousness: patient oriented x3 HEENT Other: Unremarkable Head: Yes normal to inspection Neck Neck: Yes normal visual inspection Chest Chest palpation & inspection: normal inspection of the chest Resp Auscultation: clear to auscultation bilaterally Cardio Palpation: normal PMI Heart sounds: S1 normal heart sound present, S2 abnormal (Soft), no gallops, Murmur heart sound present systolic III/ and no rubs GI Palpation (GI): Soft to palpation Back/Spine/Pelvis Other: unremarkable Skin General skin exam: no rashes or lesions noted Neuro General: patient oriented x3 Speech: No Abnormal speech present Extrem General: Yes normal to inspection Psych Mental Status: mental status grossly normal Assessment & Plan Assessment & Plan (1) Non-rheumatic aortic stenosis: Code(s): I35.0 - Nonrheumatic aortic (valve) stenosis Category: Medical Plan: In the recent echocardiogram, paradoxical, low-flow, low gradient, severe aortic stenosis. There is also significant mitral annular calcification but no significant stenosis. Preserved LVEF. Pathophysiology of aortic stenosis discussed in detail with patient as well as daughter using seismic interpreter. She seems to be relatively asymptomatic, but her valve area is only 0.57 cm2. Hence still reasonable to consider TAVR. We will refer her to for the same. If the consensus is to proceed, then may proceed with diagnostic catheterization. Due to her upcoming trip to [place], we will need to schedule these after that. To avoid any strenuous exertion. (2) Essential hypertension: Code(s): I10 - Essential (primary) hypertension Category: Medical Plan: On losartan. (3) Lymphoma: Code(s): C85.90 - Non-Hodgkin lymphoma, unspecified, unspecified site Category: Medical Plan: Per [facility] records, follicular lymphoma but in remission. Coding Level of Care Code Est Pt Level 4 (04079) Diagnoses Non-rheumatic aortic stenosis I35.0 Essential hypertension I10 Lymphoma C85.90
[2024-03-17 10:46] VITALS: BP 134/56; PULSE 70; BMI 25.2
--- OUTSIDE RECORDS SUMMARY | 2024-03-17 12:17 | XMS_ITS | Data Portability ---
Author Organization [employer], [place] [facility] [employer] Address [address] [place] [id number] Care Team Providers Care Custodial Foreman Name Role Phone WILMA ALLAN Primary Care Provider [phone] [facility] OTHER [facility] OTHER Assessment Encounter Date Assessment Date [...] quality. She is not on paxlovid. VSS. Recreation Clerk on site reports that she appears well, clear lung sounds bilaterally, ambulating and speaking full sentences without respiratory distress on room air. Presentation consistent with ongoing COVID URI, will give a dose of benzonatate and send rx to pharmacy. Continue ongoing over the counter management, unfortunately now outside of the window for paxlovid. [facility] Not available 04/26/2022 17:22:05 07/14/2023 07/14/2023 I have reviewed and agree with the assessment and plan as documented by the tobacco prizer. I provided real time medical direction for this encounter and was immediately available to provide additional phone based assistance as needed. History as noted by tobacco prizer. Pt with history of lymphoma, DM and [...] None recorded. Lab urinalysis, dipstick 2022 023 [facility], [address] [place] [address], [phone], 3 13:14:02 glucose, fingerstick , blood 2022 023 [email or web address], [address] [place] [address], [phone], 3 13:09:09 Referral None recorded. Procedures None recorded. Surgeries None recorded. Imaging None recorded. Medication Orders benzonatate 100 mg capsule 2022 023 [facility] #[id number], [address] [facility], [place], [place], [id number], 3 15:04:35 cetirizine 10 mg tablet 2023 024 [facility] #[id number], [address], [place], [id number], 4 10:16:11 benzonatate 100 mg capsule 2023 024 [facility] #[id number], [address], [place], [id number], 4 10:16:11 Patient TargetsNo targets recorded. Patient InstructionsNo instructions recorded. Reason for Referral None Reported. Results Created Date Observation Date Name Description Value Unit Range Abnormal Flag Note LastModifiedBy Organization Detail LastModifiedTime 11/07/1911/06/2022 urina lysis , dipst ick Leukocytes neg Not Available [facility] [address] [place] [address], [phone], 11/06/2022 13:13:47 11/07/19 23 11/06/2022 urina lysis , dipst ick Nitrite negati ve Not Available Main - Inst [address], [address], 11/06/2022 13:13:47 11/07/19 23 11/06/2022 urina lysis , dipst ick Protein neg Not Available Main - Ins [address], [address], 11/06/2022 13:13:47 11/07/19 23 11/06/2022 urina lysis , dipst ick Blood neg Not Available Main - Ins [address], [address], 11/06/2022 13:13:47 11/07/19 23 11/06/2022 urina lysis , dipst ick Ketone neg Not Available Main - Ins [address], [address], 11/06/2022 13:13:47 11/07/19 23 11/06/2022 urina lysis , dipst ick Glucose neg Not Available Main - Ins alexy [address] [facility], [place], [address], 11/06/2022 13:13:47 11/07/19 23 11/06/2022 gluco samir coreas k, blood Blood Glucose: mg/dl 50 Not Available [facility] - [facility] [address] [place], [address], 11/06/2022 13:09:00 Result Notes None recorded. Medical [...] % 178 mm[Hg] 64 mm[Hg] Not Available [employer] 3 12:51:42 Date Recorded Heart rate Oxygen saturation Oxygen saturation in Arterial blood by Pulse oximetry Body temperature Respiratory rate Body weight Body height Systolic blood pressure Diastolic blood pressure Provider Name and Address Organization Details Last Updated DateTime 4 84 /min 99 % 99 % 97.6 [degF] 14 /min 12887.7 36 g 154.94 cm 137 mm[Hg] 81 mm[Hg] Not Available [employer] 4 10:09:32 Date Recorded Oxygen saturation Oxygen saturation in Arterial blood by Pulse oximetry Body temperature Body weight Body height Heart rate Respiratory rate Systolic blood pressure Diastolic blood pressure Provider Name and Address Organization Details Last Updated DateTime 4 98 % 98 % 98.4 [degF] 57927 g 152.4 cm 90 /min 14 /min 124 mm[Hg] 80 mm[Hg] Not Available [employer] 4 20:55:20 Date Recorded Body temperature Body [...] Details Last Updated DateTime 3 97.8 [degF] 38767.2 24 g 18 /min 99 % 99 % 72 /min 29740.2 24 g 72 /min 97.8 [degF] 18 /min 99 % 99 % 154 mm[Hg] 64 mm[Hg] 154 mm[Hg] 64 mm[Hg] Not Available [employer] 3 15:20:23 Social History None recorded. Functional Status None recorded. Mental Status None recorded. Family History Nothing Reported. Medical History No medical history recorded. Gynecological HistoryNo gynecological history recorded. Obstetrics History GPAL:G 0 P 0 0 0 0 Past Encounters Encounter ID Performer Location Encounter Start Date Encounter Closed Date Diagnosis/Indication Diagnosis SNOMED-CT Code Diagnosis ICD10 Code Diagnosis Note [id number] Maria Alejandra Parada MD Main - [address] [phone] 04/26/2022 15:00:05 04/29/2022 09:43:15 Cough 06565948 R05.9 [id number] Daisy Butler MD [facility] - [address] [address] 11/06/2022 12:51:33 11/06/2022 23:26:09 Elderly fall 460409851 R29.6 Evaluation in the field was performed by my tobacco prizer colleague, as noted above, I provided real-time direction and supervisio n for this visit. 82yo F PMHx T2DM, HTN p/w fall after getting out of bed quickily overnight to use the bathroom. Denies preceding sx including no CP, confusion, or dizziness. Denies focla neurologic deficits. Fell to knees and then chin with sig chin bruising and intra-oral bleeding now resolved, no LOC and not on blood thinners so no indication for CHILD LIFE THERAPIST imaging. Fall appears 2/2 orthostasi s, BP today 178/64. UA not c/w UTI. Orthostati cs negative. Recommend liberal BP goal, PCP referral for home PT and likely assistive devices. Discussed fall prevention and risk reduction given this is second fall in past year. We discussed the diagnostic uncertaint y of home visits and the risk associated with this. In this case, the patient and I felt this to be an acceptable and reasonable amount of risk given the benefit of avoiding an ED visit. We discussed the need to seek care urgently/e mergently in the setting of any new or worsening serious symptoms, shortness of breath, cough, chest pain, fever. Hypoglycemia [id number] E 16.2 On tobacco prizer eval FSG 50 but no symptoms of hypoglycem ia, normal mentation. Able to drink juice. instructed pt to hold glipizide and con't metformin until PCP follow up. Does not appear to contribute to fall but is additional risk factor. [id number] Siddhartha Noyola MD Main - [address] [address] 07/14/2023 10:09:30 07/14/2023 17:38:30 Cough [id number] R05.9 [id number] Boris Jaquez MD Main - [facility] [address] [place] [phone] 07/16/2023 20:55:09 07/17/2023 22:05:28 Viral syndrome [id number] B34.9 Patient with some mild erythema to the medial aspect of right eye. Reports associated viral syndrome as well with coughing, rhinorrhea . Suspect this is a viral syndrome tying all this together. Does not appear to be bacterial conjunctiv itis. Regardless , advised her to follow-up with her opthalmolo gist, sooner if symptoms are worsening or if she develops any ophthalmic complaints . Health Concerns Section Related Observation LastModified by Organization Detai ls LastModified Time None Recorded Concern Status LastModified by Organization Details LastModified Time None Recorded Advance Directives Directive None Recorded Payers Encounter Date Sequence Insurance Name Policy Number Policy Hooper Covered Member ID Hooper Member ID Guarantor Name 04/26/2022 1 [facility] (MEDICARE REPLACEMENT/ADV ANTAGE - PPO) Bhumi Poole [id number] Bhumi Poole 11/06/2022 1 [facility] - DOS ON OR AFTER 2022 - MEDICARE ADVANTAGE [place] (MEDICARE REPLACEMENT/ADV ANTAGE - PPO) Bhumi Poole [id number] Bhuim Poole 07/14/2023 1 [facility] [employer] - DOS ON OR AFTER 2022 - DUAL ELIGIBLE - FPC OPTIONS AND ONE CARE (MEDICARE REPLACEMENT/ADV ANTAGE - HMO) Bhumi Poole [id number] Bhumi Poole 07/16/2023 1 [facility] [employer] - DOS ON OR AFTER 2022 - DUAL ELIGIBLE - FPC OPTIONS AND ONE CARE (MEDICARE REPLACEMENT/ADV ANTAGE - HMO) Bhumi Poole [id number] Bhumi Poole Notes Date Note Type Note [...] ..................... ..................... ..................... ..................... ..................... ..................... ............... Recreation Clerk Note From Yaniv Renee: Pt presents A@Ox4 [...] clear bilaterally . 02 sat 98% . [facility] contacted and 100mg Benzonatate given PO. Prescription for Benzonatate called into her pharmacy: Pt educated on signs that would indicate the ED. Pt advised to follow up with PCP. ..................... ..................... ..................... ..................... ..................... ..................... ............... Disposition: Fulfilled Maria Alejandra Parada MD [address] [facility],[address], [place], [address], [facility] 04/26/2022 17:22:09 11/06/2022 text/html HPI: HX: DM [...] ..................... ..................... ..................... ..................... ..................... ..................... ............... Recreation Clerk Note From Joe Corona: PT sustained a [...] from family when moving in the home. [facility] Lab Orders: urinalysis, dipstick: Performed Comment: Unremarkable glucose, fingerstick, blood: Performed Comment: 50-Rx Glipizide discussed w/ family and PT ..................... ..................... ..................... ..................... ..................... ..................... ............... Disposition: Fulfilled Daisy Butler MD [address] [place] [address],[address], [place], [address], [employer] 11/06/2022 13:53:33 07/14/2023 text/html This was a super vised home visit with tobacco prizer Ramiro Jean. HPI: Hx: Follicular lymphoma.Daughter calling as patient bothered by persistent cough and weakness for several weeks. Phlegm noted now to be green. No fever or ear pain. ..................... ..................... ..................... ..................... ..................... ..................... ............... CRC Nurse Triage Notes (Princess Mayo): Comments: CRC RN DID NOT NEED FURTHER INFO ..................... ..................... ..................... ..................... ..................... ..................... ............... Recreation Clerk Note From Ramiro Jean: Pt reports for [...] ..................... ..................... ..................... ..................... ............... Disposition: Fulfilled Siddhartha Noyola MD [address] [facility],[address], [place], [address], [facility] [employer] 07/14/2023 11:16:26 07/16/2023 text/html HPI: Call returned to Bhumi Poole to triage below. Spoke with daughter who is on HIPAA. Pt seen last week by Marv. Pt having yellow discharge on right eye x 1 day. Pt having redness of white of eye. No swelling of eye lid. No itching or pain. Also having nasal secretions. Pt eye was crusted shut this morning. Pt advised of disposition, agrees to Marv lanieral as unable to come into [facility] and no standing order for antibiotic eye drops at our facility. Confirmed allergies and contact information including address. ..................... ..................... ..................... ..................... ..................... ..................... ............... CRC Nurse Triage Notes (Princess Mayo): Comments: CRC RN DID NOT NEED FURTHER INFO Member is safe and stable to wait till 07/16 ..................... ..................... ..................... ..................... ..................... ..................... ............... Recreation Clerk Note From Fred Lawrence: Patient conscious alert and oriented times three. Information through Customer Care Assistant due to strong language barrier. Patient complains of burning itching, redness to right eye times six hours. Patient has been being treated for a viral cold symptoms with benzonatate and cetirizine. Patient reports blurred vision in right eye. Patient denies any other pain or complaints. Patient reports cough is better than it was on Friday.[place] warm and dry, secondary exam unremarkable. right eye red with some pus, no swelling. Pic attached [facility] recommends, supportive care, including wet compresses, and lubricating eyedropsPatient and daughter caregiver demonstrate understanding of condition and plan. Patient states she will follow up with seo intern MAXIMO. Red flags and patient education discussed ..................... ..................... ..................... ..................... ..................... ..................... ............... Disposition: Fulfilled Boris Jaquez MD [address] [facility],[address], [place], [address], [employer] 07/16/2023 21:41:18 OBGyn Episode No OBEpisode recorded.
== END 2024-03-17 11:22 | disposition home or self-care (01) ==
PROVIDERS: PCP General Practice; Visit Provider Internal Medicine
DX: I35.0 Nonrheumatic aortic (valve) stenosis (principal); I10 Essential (primary) hypertension; C85.90 Non-Hodgkin lymphoma, unspecified, unspecified site
CPT/HCPCS: 99214

== ENCOUNTER 2024-06-16 10:38 | Outpatient (REF) | payer MEDICARE, SELFPAY ==
--- NOTE | 2024-06-16 10:43 | PFT_ITS ---
Indication: Cough Spirometry [FEV1 to FVC 79%; FEV1 1.28 L; FVC 1.62 L. No significant response to bronchodilators noted.] Lung Volumes [Total lung capacity 76% predicted; expiratory reserve volume 51% predicted] Diffusion Capacity DLCO 78% predicted Flow Volume Loops [Restrictive physiology] Comparisons [none] Interpretation [No obstructive ventilatory defects. No significant response to bronchodilators noted. There is a restrictive ventilatory defect consistent with mild restrictive lung disease. Need to consider underlying parenchymal lung conditions. There is also a mild diffusion impairment. Clinical correlation warranted.] MTDD
[2024-06-16 11:29] VITALS: PULSE 94; O2SAT 97
--- OUTSIDE RECORDS SUMMARY | 2024-06-16 12:35 | XMS_ITS | Data Portability ---
Author Organization [employer] [employer] Address [address] [place] [phone] Care Team Providers Care Manager Strategy Name Role Phone WILMA ALLAN Primary Care Provider [facility] OTHER [facility] OTHER [phone] Assessment Encounter Date Assessment Date Assessment LastModified [...] quality. She is not on paxlovid. VSS. Auto Vinyl Top Installer on site reports that she appears well, clear lung sounds bilaterally, ambulating and speaking full sentences without respiratory distress on room air. Presentation consistent with ongoing COVID URI, will give a dose of benzonatate and send rx to pharmacy. Continue ongoing over the counter management, unfortunately now outside of the window for paxlovid. [email or web address] Not available 04/26/2022 17:22:05 07/14/2023 07/14/2023 I have reviewed and agree with the assessment and plan as documented by the concrete batch plant operator. I provided real time medical direction for this encounter and was immediately available to provide additional phone based assistance as needed. History as noted by concrete batch plant operator. Pt with history of lymphoma, DM and [...] None recorded. Lab urinalysis, dipstick 2022 023 [facility] [address], [phone] 3 13:14:02 glucose, fingerstick , blood 2022 023 [facility] [address], [phone] 3 13:09:09 Referral None recorded. Procedures None recorded. Surgeries None recorded. Imaging None recorded. Medication Orders cetirizine 10 mg tablet 2023 024 [id number], [address] [facility], [place], [place], [id number], 4 10:16:11 benzonatate 100 mg capsule 2023 024 [id number], [address] [facility], [place], [place], [id number], 4 10:16:11 benzonatate 100 mg capsule 2022 023 [id number], [address] [facility], [place], [place], [id number], 3 15:04:35 Patient TargetsNo targets recorded. Patient InstructionsNo instructions recorded. Reason for Referral None Reported. Results Created Date Observation Date Name Description Value Unit Range Abnormal Flag Note LastModifiedBy Organization Detail LastModifiedTime 11/07/1911/06/2022 urina lysis , dipst ick Leukocytes neg Not Available Main - [address], [address] 11/06/2022 13:13:47 11/07/19 23 11/06/2022 urina lysis , dipst ick Nitrite negati ve Not Available Main - Inst [address], [address] 11/06/2022 13:13:47 11/07/19 23 11/06/2022 urina lysis , dipst ick Protein neg Not Available Main - Ins [address], [address] 11/06/2022 13:13:47 11/07/19 23 11/06/2022 urina lysis , dipst ick Blood neg Not Available Main - Ins [address], [address] 11/06/2022 13:13:47 11/07/19 23 11/06/2022 urina lysis , dipst ick Ketone neg Not Available Main - Ins [address], [address] 11/06/2022 13:13:47 11/07/19 23 11/06/2022 urina lysis , dipst ick Glucose neg Not Available Main - Ins [address], [address] 11/06/2022 13:13:47 11/07/19 23 11/06/2022 gluco se, finge rstic k, blood Blood Glucose: mg/dl 50 Not Available Main - [facility] [address], [place], [address] 11/06/2022 13:09:00 Result Notes None recorded. Medical [...] % 178 mm[Hg] 64 mm[Hg] Not Available [facility] 3 12:51:42 Date Recorded Heart rate Oxygen saturation Oxygen saturation in Arterial blood by Pulse oximetry Body temperature Respiratory rate Body weight Body height Systolic blood pressure Diastolic blood pressure Provider Name and Address Organization Details Last Updated DateTime 4 84 /min 99 % 99 % 97.6 [degF] 14 /min 95022.7 36 g 154.94 cm 137 mm[Hg] 81 mm[Hg] Not Available [employer] 4 10:09:32 Date Recorded Oxygen saturation Oxygen saturation in Arterial blood by Pulse oximetry Body temperature Body weight Body height Heart rate Respiratory rate Systolic blood pressure Diastolic blood pressure Provider Name and Address Organization Details Last Updated DateTime 4 98 % 98 % 98.4 [degF] 73402 g 152.4 cm 90 /min 14 /min 124 mm[Hg] 80 mm[Hg] Not Available [employer] 4 20:55:20 Date Recorded Body temperature Body [...] Details Last Updated DateTime 3 97.8 [degF] 15664.2 24 g 18 /min 99 % 99 % 72 /min 93904.2 24 g 72 /min 97.8 [degF] 18 /min 99 % 99 % 154 mm[Hg] 64 mm[Hg] 154 mm[Hg] 64 mm[Hg] Not Available [employer] 3 15:20:23 Social History None recorded. Functional [...] Maria Alejandra Parada MD Main - [facility] [address] [place] [phone] 04/26/2022 15:00:05 04/29/2022 09:43:15 Cough 90405163 R05.9 [id number] Daisy Butler MD Main - [facility] [address] [place] [phone] 11/06/2022 12:51:33 11/06/2022 23:26:09 Elderly fall [id number] R29.6 Evaluation in the field was performed by my concrete batch plant operator colleague, as noted above, I provided real-time [...] on blood thinners so no indication for [employer] imaging. Fall appears 2/2 orthostasi s, BP [...] of breath, cough, chest pain, fever. Hypoglycemia [id number] E 16.2 On concrete batch plant operator eval FSG 50 but no symptoms of hypoglycem ia, normal mentation. Able to drink juice. instructed pt to hold glipizide and con't metformin until PCP follow up. Does not appear to contribute to fall but is additional risk factor. [id number] Siddhartha Noyola MD Main - [facility] [address] [place] [phone] 07/14/2023 10:09:30 07/14/2023 17:38:30 Cough [id number] R05.9 [id number] Boris Jaquez MD Main - [facility] [address] [place] [phone] 07/16/2023 20:55:09 07/17/2023 22:05:28 Viral syndrome [id number] B34.9 Patient with some mild erythema to [...] Hooper Member ID Guarantor Name 04/26/2022 1 [facility] CARE ALLIANCE (MEDICARE REPLACEMENT/ADV ANTAGE - PPO) Bhumi Poole [id number] Bhumi Poole 11/06/2022 1 [facility] - DOS ON OR AFTER 2022 - MEDICARE ADVANTAGE [place] (MEDICARE REPLACEMENT/ADV ANTAGE - PPO) Bhumi Poole [id number] Bhumi Poole 07/14/2023 1 [facility] - DOS ON OR AFTER 2022 - DUAL ELIGIBLE - [facility] OPTIONS AND ONE CARE (MEDICARE REPLACEMENT/ADV ANTAGE - HMO) Bhumi Poole [id number] Bhumi Poole 07/16/2023 1 [facility] CARE ALLIANCE - DOS ON OR AFTER 2022 - DUAL ELIGIBLE - [facility] OPTIONS AND ONE CARE (MEDICARE REPLACEMENT/ADV ANTAGE - HMO) Bhumi Poole [id number] Bhumi Poole Notes Date Note Type Note [...] ..................... ..................... ..................... ..................... ..................... ..................... ............... Auto Vinyl Top Installer Note From Yaniv Renee: Pt presents A@Ox4 [...] clear bilaterally . 02 sat 98% . [facility] contacted and 100mg Benzonatate given PO. Prescription for Benzonatate called into her pharmacy: Pt educated on signs that would indicate the ED. Pt advised to follow up with PCP. ..................... ..................... ..................... ..................... ..................... ..................... ............... Disposition: Fulfilled Maria Alejandra Parada MD [address] [facility],[address], [place], [address], [employer] 04/26/2022 17:22:09 11/06/2022 text/html HPI: HX: DM [...] ..................... ..................... ..................... ..................... ..................... ..................... ............... Auto Vinyl Top Installer Note From Joe Corona: PT sustained a [...] from family when moving in the home. [facility] Lab Orders: urinalysis, dipstick: Performed Comment: Unremarkable glucose, fingerstick, blood: Performed Comment: 50-Rx Glipizide discussed w/ family and PT ..................... ..................... ..................... ..................... ..................... ..................... ............... Disposition: Fulfilled Daisy Butler MD [address] [place] [address],[address], [place], [address], [employer] [place] 11/06/2022 13:53:33 07/14/2023 text/html This was a super vised home visit with concrete batch plant operator Ramiro Jean. HPI: Hx: Follicular lymphoma.Daughter calling as patient bothered by persistent cough and weakness for several weeks. Phlegm noted now to be green. No fever or ear pain. ..................... ..................... ..................... ..................... ..................... ..................... ............... CRC Nurse Triage Notes (Princess Mayo): Comments: CRC RN DID NOT NEED FURTHER INFO ..................... ..................... ..................... ..................... ..................... ..................... ............... Auto Vinyl Top Installer Note From Ramiro Jean: Pt reports for [...] ............... Disposition: Fulfilled Siddhartha Noyola MD [address] [facility],[address], [place], [address], [employer] 07/14/2023 11:16:26 07/16/2023 text/html HPI: Call returned [...] Pt advised of disposition, agrees to Marv salcedo as unable to come into [facility] and no standing order for antibiotic eye drops at our facility. Confirmed allergies and contact information including address. ..................... ..................... ..................... ..................... ..................... ..................... ............... CRC Nurse Triage Notes (Princess Mayo): Comments: CRC RN DID NOT NEED FURTHER INFO Member is safe and stable to wait till 07/16 ..................... ..................... ..................... ..................... ..................... ..................... ............... Auto Vinyl Top Installer Note From Fred Lawrence: Patient conscious alert and oriented times three. Information through [employer] due to strong language barrier. Patient complains of burning itching, redness to right eye times six hours. Patient has been being treated for a viral cold symptoms with benzonatate and cetirizine. Patient reports blurred vision in right eye. Patient denies any other pain or complaints. Patient reports cough is better than it was on Friday.[place] warm and dry, secondary exam unremarkable. right eye red with some pus, no swelling. Pic attached [facility] recommends, supportive care, including wet compresses, and lubricating eyedropsPatient and daughter caregiver demonstrate understanding of condition and plan. Patient states she will follow up with lead systems engineer MAXIMO. Red flags and patient education discussed ..................... ..................... ..................... ..................... ..................... ..................... ............... Disposition: Fulfilled Boris Jaquez MD [address] [facility],[address], [place], [address], [employer] [place] 07/16/2023 21:41:18 OBGyn Episode No OBEpisode recorded.
== END 2024-06-16 10:39 | disposition home or self-care (01) ==
LOC: HO.RESP 10:38
PROVIDERS: PCP General Practice; Visit Provider General Practice
DX: R05.3 Chronic cough (principal)
CPT/HCPCS: 94010; 94640; 94727; 94729

== ENCOUNTER → 2024-06-16 10:43 | Outpatient (BNV) | payer MEDICARE, SELFPAY | PROVIDERS: PCP General Practice; Visit Provider Hospitalist | DX: R05.3 Chronic cough (principal); R06.02 Shortness of breath | CPT/HCPCS: 94060; 94727; 94729 ==

== ENCOUNTER 2024-06-30 09:43 | Outpatient (AMB) | payer OTHER, SELFPAY ==
--- NOTE | 2024-06-30 10:08 | MHC.OFFVIS ---
Vital Signs 06/30/24 10:09 Height 5 ft 2 in Weight 132 lb 4.438 oz BMI 24.2 BP 116/78 Blood Pressure Location Lt brachial Position Sitting Pulse 66 Intake Visit Reasons: TAVAR-Consult Intake Note: Tavr consults c/o feeling ok Manager Of Distribution Required: Yes Manager Of Distribution Services: Manager Of Distribution Present Manager Of Distribution Name: sage Gill Communication Center Coordinator: Communication Center Coordinator Present Accompanied by: Daughter Allergies No Known Allergies Allergy (Verified 03/07/22 15:47) Medication List - Last Reconciled 06/30/24 by Preet Rebollar MD blood sugar diagnostic ([employer] Ultra Test strips) As directed losartan 100 mg PO DAILY metformin 500 mg PO DAILY metoprolol succinate ER 50 mg PO DAILY HPI Comments Details: 84 year female who is here for severe aortic valve stenosis and discussion about transcatheter aortic valve replacement. 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 She has background of lymphoma. She had echocardiography done recently which raise concern for severe low-flow low gradient aortic valve stenosis. Aortic valve area was 0.57 centimeters sq, stroke volume index 27, mean gradient 19 mm Hg. Aortic valve was severely calcified. She is not active in her day-to-day life but denies any symptoms with her usual activities. No chest discomfort, shortness of breath or syncope. Occasionally she gets dizzy and loses her balance but never blacked out or passed out before. No bleeding issues. EKGs reviewed showing sinus rhythm with poor R-wave progression and nonspecific ST changes, QTC 419 milliseconds. [facility] Medical History (Updated 10/28/23 @ 10:05 by Moody Durán MD) Type 2 diabetes mellitus with unspecified complications Lymphoma Essential hypertension Cough Post covid-19 condition, unspecified Family History Father No problems noted. Mother No problems noted. Social History Comment: social/rare Patient Tobacco Use Status: Former Tobacco user Review of Systems Const Denies chills, Denies fatigue, Denies fever(s), Denies frequent falls, Denies weakness, Denies weight gain and Denies weight loss ENT Denies dizziness Card Denies chest pain, Denies leg edema, Denies lightheadedness, Denies palpitations, Denies dyspnea, Denies dyspnea on exertion, Denies orthopnea and Denies other (loss of consciousness) Resp Denies cough, Denies dyspnea and Denies dyspnea on exertion GI Denies hematochezia and Denies change in stool character Musc Denies abnormal gait, Denies muscle weakness, Denies numbness, Denies radiating pain into limb and Denies tingling Neuro Denies abnormal gait, Denies dizziness, Denies frequent falls, Denies numbness, Denies tingling and Denies weakness Endo Denies fatigue and Denies palpitations Physical Exam Vital Signs: Last Vital Signs Pulse 66 06/30/24 10:09 BP 116/78 06/30/24 10:09 BMI result Body Mass Index 24.2 GENERAL APPEARANCE: in no acute distress, pleasant. NECK: no carotid bruit, no jugular venous distention. SKIN: no suspicious lesions, warm and dry. HEART: Ejection systolic murmur aortic area with preserved 2nd heart sound, regular rate and rhythm. LUNGS: clear to auscultation bilaterally. ABDOMEN: soft, nontender. EXTREMITIES: no edema. PERIPHERAL PULSES: equal. NEUROLOGIC: No gross deficits, AAO X 3 Assessment & Plan Assessment & Plan (1) Non-rheumatic aortic stenosis: Code(s): I35.0 - Nonrheumatic aortic (valve) stenosis Category: Medical Plan Pleasant 84 year female who is here for management of aortic stenosis. By echocardiography she has low-flow low gradient severe aortic valve stenosis. The valve is severely calcified and aortic valve area is 0.57 centimeters sq. Mean gradient across the valve is 19 mm Hg and stroke volume index is low at 27. She is fairly sedentary and does not do physical exercise. She is denying any symptoms in her day-to-day life. I have discussed with the patient and her daughter in detail about the natural history of aortic valve stenosis. We discussed about management options including surgery versus transcatheter aortic valve replacement. I have advised them to do a left and right heart catheterization. I have discussed with him in detail about transcatheter aortic valve replacement and potential pros and cons. The patient and daughter are interested in transcatheter aortic valve replacement. We will start the workup and refer her for surgery and TAVR protocol CT scan to gather required information before valve replacement discussions could be done. Thank you for allowing me to participate in the care of your patient. Please feel free to contact me if you have any questions. Orders: Orders Basic Metabolic Panel Today I35.0 - Nonrheumatic aortic (valve) stenosis B Type Natriuretic Peptide Today I35.0 - Nonrheumatic aortic (valve) stenosis Cardiac Cath ILEANA Diagnostic Today I35.0 - Nonrheumatic aortic (valve) stenosis Complete Blood Count no Diff Today I35.0 - Nonrheumatic aortic (valve) stenosis Prothrombin Time INR Today I35.0 - Nonrheumatic aortic (valve) stenosis Coding Level of Care Code New Pt Level 5 (64244) Diagnoses Non-rheumatic aortic stenosis I35.0
[2024-06-30 10:09] VITALS: BP 116/78; PULSE 66; BMI 24.2
== END 2024-06-30 11:11 | disposition home or self-care (01) ==
LOC: HO.HCS 09:44
PROVIDERS: PCP General Practice; Visit Provider Internal Medicine Cardiovascular Disease
DX: I35.0 Nonrheumatic aortic (valve) stenosis (principal)
CPT/HCPCS: 99214

== ENCOUNTER → 2024-06-30 09:43 | Outpatient (BNVA) | payer MEDICARE, SELFPAY | PROVIDERS: PCP General Practice; Visit Provider Internal Medicine Cardiovascular Disease | DX: Z13.89 Encounter for screening for other disorder (principal) ==

== ENCOUNTER 2024-07-09 15:06 | Outpatient (REF) | payer MEDICARE, SELFPAY ==
--- OUTSIDE RECORDS SUMMARY | 2024-07-09 15:09 | XMS_ITS | Data Portability ---
Author Organization [facility] [employer] [facility] [employer] Address [address] [place] [address] Care Team Providers Care Tour Agent Name Role Phone WILMA ALLAN Primary Care Provider [phone] [facility] OTHER [facility] OTHER [phone] Assessment Encounter Date Assessment Date Assessment LastModified [...] quality. She is not on paxlovid. VSS. Insurance Customer Service Specialist on site reports that she appears well, clear lung sounds bilaterally, ambulating and speaking full sentences without respiratory distress on room air. Presentation consistent with ongoing COVID URI, will give a dose of benzonatate and send rx to pharmacy. Continue ongoing over the counter management, unfortunately now outside of the window for paxlovid. [facility] Not available 04/26/2022 17:22:05 07/14/2023 07/14/2023 I have reviewed and agree with the assessment and plan as documented by the strategy intern. I provided real time medical direction for this encounter and was immediately available to provide additional phone based assistance as needed. History as noted by strategy intern. Pt with history of lymphoma, DM and [...] None recorded. Lab urinalysis, dipstick 2022 023 [facility] [address], [address] 3 13:14:02 glucose, fingerstick , blood 2022 023 [facility] [address], [address] 3 13:09:09 Referral None recorded. Procedures None recorded. Surgeries None recorded. Imaging None recorded. Medication Orders cetirizine 10 mg tablet 2023 024 [id number], [address] [facility], [place], [place], [id number], 4 10:16:11 benzonatate 100 mg capsule 2023 024 [id number], [address] [facility], [place], [place], [id number], 4 10:16:11 benzonatate 100 mg capsule 2022 023 [id number], [address] [facility], [place], [place], [id number], 3 15:04:35 Patient TargetsNo targets recorded. Patient InstructionsNo instructions recorded. Reason for Referral None Reported. Results Created Date Observation Date Name Description Value Unit Range Abnormal Flag Note LastModifiedBy Organization Detail LastModifiedTime 11/07/1911/06/2022 urina lysis , dipst ick Leukocytes neg Not Available Main - [address], [address] 11/06/2022 13:13:47 11/07/19 23 11/06/2022 urina lysis , dipst ick Nitrite negati ve Not Available Main - Inst [address], [address] 11/06/2022 13:13:47 11/07/19 23 11/06/2022 urina lysis , dipst ick Protein neg Not Available Main - Ins [address], [id number] 11/06/2022 13:13:47 11/07/19 23 11/06/2022 urina lysis , dipst ick Blood neg Not Available Main - Ins [address], [id number] 11/06/2022 13:13:47 11/07/19 23 11/06/2022 urina lysis , dipst ick Ketone neg Not Available Main - Ins [address], [id number] 11/06/2022 13:13:47 11/07/19 23 11/06/2022 urina lysis , dipst ick Glucose neg Not Available Main - Ins [address], [address] 11/06/2022 13:13:47 11/07/19 23 11/06/2022 gluco se, finge rstic k, blood Blood Glucose: mg/dl 50 Not Available Main - Inst[facility] [address], [place], [address] 11/06/2022 13:09:00 Result Notes None recorded. Medical [...] % 99 % 97.6 [degF] 14 /min 19336.7 36 g 154.94 cm 137 mm[Hg] 81 mm[Hg] Not Available [facility] 4 10:09:32 Date Recorded Oxygen saturation Oxygen saturation in Arterial blood by Pulse oximetry Body temperature Body weight Body height Heart rate Respiratory rate Systolic blood pressure Diastolic blood pressure Provider Name and Address Organization Details Last Updated DateTime 4 98 % 98 % 98.4 [degF] 57797 g 152.4 cm 90 /min 14 /min 124 mm[Hg] 80 mm[Hg] Not Available [employer] 4 20:55:20 Date Recorded Body temperature Body [...] Details Last Updated DateTime 3 97.8 [degF] 87009.2 24 g 18 /min 99 % 99 % 72 /min 27205.2 24 g 72 /min 97.8 [degF] 18 /min 99 % 99 % 154 mm[Hg] 64 mm[Hg] 154 mm[Hg] 64 mm[Hg] Not Available [employer] 3 15:20:23 Social History None recorded. Functional [...] Maria Alejandra Parada MD Main - instED [address] [place] [phone] 04/26/2022 15:00:05 04/29/2022 09:43:15 Cough 26552836 R05.9 [id number] Daisy Butler MD Main - instED [address] [place] [phone] 11/06/2022 12:51:33 11/06/2022 23:26:09 Elderly fall 764675468 R29.6 Evaluation in the field was performed by my strategy intern colleague, as noted above, I provided real-time [...] on blood thinners so no indication for REED DIPPER imaging. Fall appears 2/2 orthostasi s, BP [...] of breath, cough, chest pain, fever. Hypoglycemia 855091516 E 16.2 On strategy intern eval FSG 50 but no symptoms of hypoglycem ia, normal mentation. Able to drink juice. instructed pt to hold glipizide and con't metformin until PCP follow up. Does not appear to contribute to fall but is additional risk factor. [id number] Siddhartha Noyola MD Main - instED [address] [place] [phone] 07/14/2023 10:09:30 07/14/2023 17:38:30 Cough [id number] R05.9 [id number] Boris Jaquez MD Main - instED [address] [place] [phone] 07/16/2023 20:55:09 07/17/2023 22:05:28 Viral syndrome [id number] B34.9 Patient with some mild erythema to [...] Recorded Advance Directives Directive None Recorded Payers Insurance Date Sequence Insurance Name Policy Number Policy Hooper Covered Member ID Hooper Member ID Guarantor Name 07/14/2023 1 [facility] (MEDICARE REPLACEMENT/ADV ANTAGE - PPO) Bhumi Poole [id number] Bhumi Poole 07/14/2023 1 [facility] - DOS ON OR AFTER 2022 - DUAL ELIGIBLE - PENITENTIARY OPTIONS AND ONE CARE (MEDICARE REPLACEMENT/ADV ANTAGE - HMO) Bhumi Poole [id number] Bhumi Poole 07/14/2023 1 [facility] - DOS ON OR AFTER 2022 - MEDICARE [place]VANTAGE [place] (MEDICARE [place]PLACEMENT/ADV ANTAGE - PPO) Bhumi Poole [id number] Bhumi Poole Notes Date Note Type Note [...] with daughter who stated sometimes her is 3/25 sometimes it its 06/01 ??? ..................... ..................... ..................... ..................... ..................... ..................... ............... Insurance Customer Service Specialist Note From Yaniv Renee: Pt presents A@Ox4 [...] clear bilaterally . 02 sat 98% . [facility] contacted and 100mg Benzonatate given PO. Prescription for Benzonatate called into her pharmacy: Pt educated on signs that would indicate the ED. Pt advised to follow up with PCP. ..................... ..................... ..................... ..................... ..................... ..................... ............... Disposition: Fulfilled Maria Alejandra Parada MD [address] [place] [address],[address], [place], [address], [facility] 04/26/2022 17:22:09 11/06/2022 text/html HPI: HX: DM [...] ..................... ..................... ..................... ..................... ..................... ..................... ............... Insurance Customer Service Specialist Note From Joe Corona: PT sustained a [...] from family when moving in the home. [facility] Lab Orders: urinalysis, dipstick: Performed Comment: Unremarkable glucose, fingerstick, blood: Performed Comment: 50-Rx Glipizide discussed w/ family and PT ..................... ..................... ..................... ..................... ..................... ..................... ............... Disposition: Fulfilled Daisy Butler MD [address] [facility],[address], [place], [phone], [employer] 11/06/2022 13:53:33 07/14/2023 text/html This was a super vised home visit with strategy intern Ramiro Jean. HPI: Hx: Follicular lymphoma.Daughter calling as patient bothered by persistent cough and weakness for several weeks. Phlegm noted now to be green. No fever or ear pain. ..................... ..................... ..................... ..................... ..................... ..................... ............... CRC Nurse Triage Notes (Princess Mayo): Comments: CRC RN DID NOT NEED FURTHER INFO ..................... ..................... ..................... ..................... ..................... ..................... ............... Insurance Customer Service Specialist Note From Ramiro Jean: Pt reports for [...] ............... Disposition: Fulfilled Siddhartha Noyola MD [address] [facility],[address], [place], [address], [facility] - [employer]ENN FULLER 07/14/2023 11:16:26 07/16/2023 text/html HPI: Call returned [...] morning. Pt advised of disposition, agrees to instED eval as unable to come into [facility] and no standing order for antibiotic eye drops at our facility. Confirmed allergies and contact information including address. ..................... ..................... ..................... ..................... ..................... ..................... ............... CRC Nurse Triage Notes (Princess Mayo): Comments: CRC RN DID NOT NEED FURTHER INFO Member is safe and stable to wait till 07/16 ..................... ..................... ..................... ..................... ..................... ..................... ............... Insurance Customer Service Specialist Note From Fred Lawrence: Patient conscious alert and oriented times three. Information through Obstetrics Technician due to strong language barrier. Patient complains of burning itching, redness to right eye times six hours. Patient has been being treated for a viral cold symptoms with benzonatate and cetirizine. Patient reports blurred vision in right eye. Patient denies any other pain or complaints. Patient reports cough is better than it was on Friday.[place] warm and dry, secondary exam unremarkable. right eye red with some pus, no swelling. Pic attached [facility] recommends, supportive care, including wet compresses, and lubricating eyedropsPatient and daughter caregiver demonstrate understanding of condition and plan. Patient states she will follow up with leadership program intern MAXIMO. Red flags and patient education discussed ..................... ..................... ..................... ..................... ..................... ..................... ............... Disposition: Fulfilled Boris Jaquez MD [address] [place] [address],[address], [place], [phone], [employer] 07/16/2023 21:41:18 OBGyn Episode No OBEpisode recorded.
[2024-07-09 16:27] LABS: Hematocrit 36.6 % (37.0-47.0); Hemoglobin 11.9 g/dl (12.0-16.0); Mean Corpuscular HGB Conc 32.5 g/dl (31.0-35.0); Mean Corpuscular Hemoglobin 29.6 pg (27.0-33.0); Mean Platelet Volume 9.2 fL (9.4-12.3); Platelet Count 247 X10*3/uL (160-400); Red Blood Count 4.02 X10*6/uL (4.20-5.50); Red Cell Distribution Width 12.1 % (11.0-16.0); White Blood Count 7.2 X10*3/uL (4.8-10.8)
[2024-07-09 16:35] LABS: Prothrombin Time 11.1 SEC (10.9-12.4)
[2024-07-09 17:35] LABS: B Type Natriuretic Peptide 51 pg/mL (<100)
[2024-07-09 17:58] LABS: Anion Gap 16 (12-20); Blood Urea Nitrogen 24 mg/dL (9-16); Calcium 9.7 mg/dL (8.4-10.2); Carbon Dioxide 26 mmol/L (22-29); Chloride 105 mmol/L (96-108); Estimated Glomerular Filt Rate 47; Glucose Random 107 mg/dL (60-115); Potassium 4.5 mmol/L (3.3-5.1); Sodium 142 mmol/L (135-145)
== END 2024-07-09 15:07 | disposition home or self-care (01) ==
LOC: HO.LAB 15:06
PROVIDERS: PCP General Practice; Visit Provider Internal Medicine Cardiovascular Disease
DX: I35.0 Nonrheumatic aortic (valve) stenosis (principal)
CPT/HCPCS: 36415; 80048; 83880; 85027; 85610

== ENCOUNTER → 2024-07-16 23:59 | Outpatient (BNV) | payer MEDICARE, SELFPAY | PROVIDERS: PCP General Practice; Visit Provider Internal Medicine Cardiovascular Disease | DX: I35.0 Nonrheumatic aortic (valve) stenosis (principal) | CPT/HCPCS: 93460; 99152 ==

== ENCOUNTER 2024-07-30 12:38 | Outpatient (AMB) | payer MEDICARE, SELFPAY ==
--- OUTSIDE RECORDS SUMMARY | 2024-07-30 13:00 | XMS_ITS | Data Portability ---
Author Organization [employer] [employer] Address [address] [place] [phone] Care Team Providers Care Professor Of Psychiatry Name Role Phone WILMA ALLAN Primary Care Provider [facility] OTHER [facility] OTHER Assessment Encounter Date Assessment Date [...] quality. She is not on paxlovid. VSS. Applied Computer Science Professor on site reports that she appears well, clear lung sounds bilaterally, ambulating and speaking full sentences without respiratory distress on room air. Presentation consistent with ongoing COVID URI, will give a dose of benzonatate and send rx to pharmacy. Continue ongoing over the counter management, unfortunately now outside of the window for paxlovid. [facility] Not available 04/26/2022 17:22:05 07/14/2023 07/14/2023 I have reviewed and agree with the assessment and plan as documented by the terminal gauger. I provided real time medical direction for this encounter and was immediately available to provide additional phone based assistance as needed. History as noted by terminal gauger. Pt with history of lymphoma, DM and [...] None recorded. Lab urinalysis, dipstick 2022 [facility]23 [facility] [address], [address] 3 13:14:02 glucose, fingerstick , blood 2022 023 [facility] [employer] [facility] [address], [address] 3 13:09:09 Referral None recorded. Procedures None recorded. Surgeries None recorded. Imaging None recorded. Medication Orders cetirizine 10 mg tablet 2023 024 [facility] #[id number], [address] [facility], [place], [place], [id number], 4 10:16:11 benzonatate 100 mg capsule 2023 024 [facility] #77046, [address] [facility], [place], [place], [id number], 4 10:16:11 benzonatate 100 mg capsule 2022 023 [facility] #[id number], [address] [facility], [place], [place], [id number], 3 15:04:35 Patient TargetsNo targets recorded. Patient InstructionsNo instructions recorded. Reason for Referral None Reported. Results Created Date Observation Date Name Description Value Unit Range Abnormal Flag Note LastModifiedBy Organization Detail LastModifiedTime 11/07/1911/06/2022 urina lysis , dipst ick Leukocytes neg Not Available Main - [address], [address] 11/06/2022 13:13:47 11/07/19 23 11/06/2022 urina lysis , dipst ick Nitrite negati ve Not Available Main - Inst [address], [address] 11/06/2022 13:13:47 11/07/19 23 11/06/2022 urina lysis , dipst ick Protein neg Not Available Main - Ins [address], [address] 11/06/2022 13:13:47 11/07/19 23 11/06/2022 urina lysis , dipst ick Blood neg Not Available Main - Ins [address], [address] 11/06/2022 13:13:47 11/07/19 23 11/06/2022 urina lysis , dipst ick Ketone neg Not Available Main - Ins [address], [id number] 11/06/2022 13:13:47 11/07/19 23 11/06/2022 urina lysis , dipst ick Glucose neg Not Available Main - Ins [address], [address] 11/06/2022 13:13:47 11/07/19 23 11/06/2022 gluco se, finge rstic k, blood Blood Glucose: mg/dl 50 Not Available Main - [facility] [address], [place], [address] 11/06/2022 13:09:00 Result Notes None recorded. Medical [...] Available No t Available Vitals Date Recorded Body temperature Body weight Respiratory rate Oxygen saturation Oxygen saturation in Arterial blood by Pulse oximetry Heart rate Body weight Heart rate Body temperature Respiratory rate Oxygen saturation Oxygen saturation in Arterial blood by Pulse oximetry Systolic blood pressure Diastolic blood pressure Systolic blood pressure Diastolic blood pressure Provider Name and Address Organization Details Last Updated DateTime 3 97.8 [degF] 87242.2 24 g 18 /min 99 % 99 % 72 /min 29834.2 24 g 72 /min 97.8 [degF] 18 /min 99 % 99 % 154 mm[Hg] 64 mm[Hg] 154 mm[Hg] 64 mm[Hg] Not Available [facility] 3 15:20:23 Date Recorded Heart rate Oxygen saturation Oxygen saturation in Arterial blood by Pulse oximetry Body temperature Respiratory rate Body weight Body height Systolic blood pressure Diastolic blood pressure Provider Name and Address Organization Details Last Updated DateTime 4 84 /min 99 % 99 % 97.6 [degF] 14 /min 46091.7 36 g 154.94 cm 137 mm[Hg] 81 mm[Hg] Not Available [facility] 4 10:09:32 Date Recorded Oxygen saturation Oxygen saturation in Arterial blood by Pulse oximetry Body temperature Body weight Body height Heart rate Respiratory rate Systolic blood pressure Diastolic blood pressure Provider Name and Address Organization Details Last Updated DateTime 4 98 % 98 % 98.4 [degF] 51564 g 152.4 cm 90 /min 14 /min 124 mm[Hg] 80 mm[Hg] Not Available [facility] [employer] 4 20:55:20 Date Recorded Respiratory rate Heart rate Body temperature Oxygen saturation Oxygen saturation in Arterial blood by Pulse oximetry Systolic blood pressure Diastolic blood pressure Provider Name and Address Organization Details Last Updated DateTime 3 18 /min 66 /min 97.7 [degF] 99 % 99 % 178 mm[Hg] 64 mm[Hg] Not Available [facility] 3 12:51:42 Social History None recorded. Functional Status None [...] Maria Alejandra Parada MD Main - instED [address] [place] [phone] 04/26/2022 15:00:05 04/29/2022 09:43:15 Cough 24731702 R05.9 [id number] Daisy Butler MD Main - instED [address] [place] [phone] 11/06/2022 12:51:33 11/06/2022 23:26:09 Elderly fall 421476520 R29.6 Evaluation in the field was performed by my terminal gauger colleague, as noted above, I provided real-time [...] on blood thinners so no indication for POTTERY MACHINE OPERATOR imaging. Fall appears 2/2 orthostasi s, BP [...] of breath, cough, chest pain, fever. Hypoglycemia 751296827 E 16.2 On terminal gauger eval FSG 50 but no symptoms of hypoglycem ia, normal mentation. Able to drink juice. instructed pt to hold glipizide and con't metformin until PCP follow up. Does not appear to contribute to fall but is additional risk factor. [id number] Siddhartha Noyola MD Main - instED [address] [place] [phone] 07/14/2023 10:09:30 07/14/2023 17:38:30 Cough 28443876 R05.9 [id number] Boris Jaquez MD Main - instED [address] [place] [phone] 07/16/2023 20:55:09 07/17/2023 22:05:28 Viral syndrome [id number] B34.9 Patient with some mild erythema to [...] Hooper Member ID Guarantor Name 07/14/[address] [facility] [employer] (MEDICARE REPLACEMENT/ADV ANTAGE - PPO) Bhumi Poole [id number] Bhumi Poole 07/14/2023 1 [facility] - DOS ON OR AFTER 2022 - DUAL ELIGIBLE - NURSING HOME OPTIONS AND ONE CARE (MEDICARE REPLACEMENT/ADV ANTAGE - HMO) Bhumi Poole [id number] Bhumi Poole 07/14/2023 1 [facility] - DOS ON OR AFTER 2022 - MEDICARE ADVANTAGE [place] (MEDICARE REPLACEMENT/ADV ANTAGE - PPO) Bhumi Poole [id number] Bhumi Poole Notes Date Note Type Note [...] ..................... ..................... ..................... ..................... ..................... ..................... ............... Applied Computer Science Professor Note From Yaniv Renee: Pt presents A@Ox4 [...] clear bilaterally . 02 sat 98% . [facility] contacted and 100mg Benzonatate given PO. Prescription for Benzonatate called into her pharmacy: Pt educated on signs that would indicate the ED. Pt advised to follow up with PCP. ..................... ..................... ..................... ..................... ..................... ..................... ............... Disposition: Fulfilled Maria Alejandra Parada MD [address] [place] [address],[address], [place], [address], [employer] 04/26/2022 17:22:09 11/06/2022 text/html HPI: HX: DM [...] ..................... ..................... ..................... ..................... ..................... ..................... ............... Applied Computer Science Professor Note From Joe Corona: PT sustained a [...] from family when moving in the home. [facility] Lab Orders: urinalysis, dipstick: Performed Comment: Unremarkable glucose, fingerstick, blood: Performed Comment: 50-Rx Glipizide discussed w/ family and PT ..................... ..................... ..................... ..................... ..................... ..................... ............... Disposition: Fulfilled Daisy Butler MD [address] [facility],[address], [place], [address], [employer] 11/06/2022 13:53:33 07/14/2023 text/html This was a super vised home visit with terminal gauger Ramiro Jean. HPI: Hx: Follicular lymphoma.Daughter calling as patient bothered by persistent cough and weakness for several weeks. Phlegm noted now to be green. No fever or ear pain. ..................... ..................... ..................... ..................... ..................... ..................... ............... CRC Nurse Triage Notes (Princess Mayo): Comments: CRC RN DID NOT NEED FURTHER INFO ..................... ..................... ..................... ..................... ..................... ..................... ............... Applied Computer Science Professor Note From Ramiro Jean: Pt reports for [...] ............... Disposition: Fulfilled Siddhartha Noyola MD [address] [facility],[address], [place], [address], TERESA - [employer] WaterGLENN FULLER 07/14/2023 11:16:26 07/16/2023 text/html HPI: Call [...] instED eval as unable to come into [facility] and no standing order for antibiotic eye drops at our facility. Confirmed allergies and contact information including address. ..................... ..................... ..................... ..................... ..................... ..................... ............... CRC Nurse Triage Notes (Princess Mayo): Comments: CRC RN DID NOT NEED FURTHER INFO Member is safe and stable to wait till 07/16 ..................... ..................... ..................... ..................... ..................... ..................... ............... Applied Computer Science Professor Note From Fred Lawrence: Patient conscious alert and oriented times three. Information through Production Line Worker due to strong language barrier. Patient complains of burning itching, redness to right eye times six hours. Patient has been being treated for a viral cold symptoms with benzonatate and cetirizine. Patient reports blurred vision in right eye. Patient denies any other pain or complaints. Patient reports cough is better than it was on Friday.[place] warm and dry, secondary exam unremarkable. right eye red with some pus, no swelling. Pic attached [facility] recommends, supportive care, including wet compresses, and lubricating eyedropsPatient and daughter caregiver demonstrate understanding of condition and plan. Patient states she will follow up with composing machine operator/tender MAXIMO. Red flags and patient education discussed ..................... ..................... ..................... ..................... ..................... ..................... ............... Disposition: Fulfilled Boris Jaquez MD [address] [place] [address],[address], [place], [address], [employer] - [employer] 07/16/2023 21:41:18 OBGyn Episode No OBEpisode recorded.
--- NOTE | 2024-07-30 13:04 | A.OFFVIS_ITS ---
Vital Signs 07/30/24 13:06 Height 5 ft 2 in Weight 132 lb 4.438 oz BMI 24.2 BP 110/62 Blood Pressure Location Lt brachial Position Sitting Pulse 72 Pulse Source Pulse Oximeter Intake Visit Reasons: 2wk f/up cath 06/16 Intake Note: 2wk f/up cath 06/16 Pediatric Allergist Required: Yes Pediatric Allergist Language: Cut Off Machine Helper Name: [id number] Accompanied by: Daughter Allergies No Known Allergies Allergy (Verified 03/07/22 15:47) Medication List - Last Reconciled 07/30/24 by Jared Trent NP blood sugar diagnostic (REHAPPuch Ultra Test strips) As directed losartan 100 mg PO DAILY metformin 500 mg PO DAILY metoprolol succinate ER 50 mg PO DAILY HPI Comments Details: This is an 84-year-old female patient comes in for a follow-up status post cardiac catheterization, accompanied by her daughter. The fur repair inspector was used throughout the visit. Patient with a history of diabetes, hypertension and aortic valve stenosis who has been experiencing worsening fatigue, dizziness, and shortness of breath on exertion. Since then patient has undergone an echocardiogram that showed severe aortic stenosis and subsequently underwent a cardiac catheterization. Patient saw cardiac surgeon at [facility] a week ago where they decided to proceed with TAVR. Today, patient continues to report some shortness of breath and feeling fatigued but denies any exertional chest pain, palpitations, orthopnea, PND, leg edema, presyncope, or syncope. FORMERLY [facility], [facility]–1983 Medical History Type 2 diabetes mellitus with unspecified complications Lymphoma Essential hypertension Cough Post covid-19 condition, unspecified Surgical History S/P cardiac cath Family History Father No problems noted. Mother No problems noted. Social History Comment: social/rare Patient Tobacco Use Status: Former Tobacco user Review of Systems Const Denies chills, Denies fatigue, Denies fever(s), Denies frequent falls, Denies weakness, Denies weight gain and Denies weight loss ENT Denies dizziness Card Denies chest pain, Denies leg edema, Denies lightheadedness, Denies palpitations, Denies dyspnea and Denies dyspnea on exertion Resp Denies cough, Denies dyspnea and Denies dyspnea on exertion GI Denies hematochezia Musc Denies abnormal gait, Denies muscle weakness, Denies numbness, Denies radiating pain into limb and Denies tingling Neuro Denies abnormal gait, Denies dizziness, Denies frequent falls, Denies numbness, Denies tingling and Denies weakness Endo Denies fatigue and Denies palpitations Physical Exam Vital Signs: Last Vital Signs Pulse 72 07/30/24 13:06 BP 110/62 07/30/24 13:06 BMI result Body Mass Index 24.2 Const General: cooperative, healthy appearing, comfortable and no acute distress Orientation/consciousness: patient oriented x3 HEENT Head: Yes normal to inspection Neck Neck: Yes normal visual inspection, Yes trachea midline and Yes supple Chest Chest palpation & inspection: normal inspection of the chest Resp Effort & Inspection: normal respiratory effort Auscultation: clear to auscultation bilaterally, no crackles, no rales, no rhonchi and no wheezes Cardio Jugular venous distension: no JVD Palpation: normal PMI Rate: regular rate Rhythm: regular rhythm Heart sounds: S1 normal heart sound present, S2 normal heart sound present, no click, no gallops, Murmur heart sound present systolic III/, at the left sternal border and at the right sternal border and no rubs Peripheral pulses: Peripheral pulses 2+ throughout GI Inspection: Yes normal to inspection Palpation (GI): Soft to palpation Auscultation: normal bowel sounds Skin General skin exam: no rashes or lesions noted Neuro General: patient oriented x3 Extrem General: Yes normal to inspection, No no pedal edema and No calf tenderness Psych Appearance: grossly normal Mental Status: mental status grossly normal Speech and movement: Normal speech and movement present Assessment & Plan Assessment & Plan (1) Status post cardiac catheterization: Code(s): Z98.890 - Other specified postprocedural states Plan: 07/16/2024-patient underwent a cardiac catheterization with Dr. Rebollar at [facility] that showed multivessel disease- ostial right 70%, mid RCA 70%, OM1 70%, and mid LAD 80% stenosis. Also showed mean gradient across the aortic valve at 52 mmHg and aortic valve area reduced to 0.61 cm2. Right femoral insertion site well healed. Continue lifelong aspirin therapy. Patient has seen Dr. Johnson for TAVR discussion and they together have decided to proceed with this. Patient at this point is awaiting a scheduled date for the procedure. (2) Non-rheumatic aortic stenosis: Code(s): I35.0 - Nonrheumatic aortic (valve) stenosis Category: Medical Plan: As above. (3) Essential hypertension: Code(s): I10 - Essential (primary) hypertension Category: Medical Plan: Blood pressure today is well-controlled. Continue losartan and metoprolol. Advised monitoring blood pressures at home and maintain a log. Ideally, blood pressure goal less than 130/80. Advised heart healthy diet, exercise as tolerated, med compliance, and management of vascular risk factors. Follow-up after the TAVR. In the interim, patient will call the office with any concerns or change in symptoms. This note was generated using voice recognition software. While every effort has been made to ensure accuracy and proper landfill grader, there may be occasional errors that could affect the content or meaning of the described symptoms. Coding Level of Care Code Est Pt Level 4 (18026) Complex EM visit Add On G2211 Diagnoses Status post cardiac catheterization Z98.890 Non-rheumatic aortic stenosis I35.0 Essential hypertension I10 Time Spent (min) 34 Comment Time spent in reviewing the chart, test results, assessment, counseling and documentation.
[2024-07-30 13:06] VITALS: BP 110/62; PULSE 72; BMI 24.2
== END 2024-07-30 13:28 | disposition home or self-care (01) ==
LOC: HO.HCS 12:38
PROVIDERS: PCP General Practice
DX: Z98.890 Other specified postprocedural states (principal); I35.0 Nonrheumatic aortic (valve) stenosis; I10 Essential (primary) hypertension
CPT/HCPCS: 99214; G2211

== ENCOUNTER → 2024-07-30 12:38 | Outpatient (BNVA) | payer MEDICARE, SELFPAY | PROVIDERS: PCP General Practice | DX: I35.0 Nonrheumatic aortic (valve) stenosis (principal); I10 Essential (primary) hypertension; Z98.890 Other specified postprocedural states | CPT/HCPCS: 99212 ==

== ENCOUNTER → 2024-08-26 23:59 | Outpatient (BNV) | payer MEDICARE, SELFPAY | PROVIDERS: PCP General Practice; Visit Provider Internal Medicine Cardiovascular Disease | DX: I35.0 Nonrheumatic aortic (valve) stenosis (principal); Z00.6 Encounter for examination for normal comparison and control in clinical research program | CPT/HCPCS: 33361; 99152 ==

== ENCOUNTER 2024-09-06 15:09 | Outpatient (AMB) | payer MEDICARE, SELFPAY ==
--- NOTE | 2024-09-06 15:23 | MHC.OFFVIS ---
Vital Signs 09/06/24 15:30 Height 5 ft 2 in Weight 128 lb BMI 23.4 BP 110/60 Blood Pressure Location Lt brachial Position Sitting Pulse 100 Pulse Source Pulse Oximeter Pulse Oximetry (%) 97 Oxygen Delivery Method Room Air Intake Visit Reasons: Review Gastric Mass. CL Add on. Intake Note: New pt for initial eval of possible gastric mass. Previous hx of mass, [place] [facility]. New CT shows possible new mass. EGD + [place] consult. CC; Pt denies any GI sx or additional concerns at this time. Pt states their current Rx are working OK for them. Shank Carrier Required: Yes Shank Carrier Services: Shank Carrier Offered & Declined Accompanied by: Daughter Allergies No Known Allergies Allergy (Verified 09/06/24 15:24) HPI HPI Review Gastric Mass. CL Add on.: Details: 84-year-old female with past medical history of lymphoma, hypertension, nonrheumatic aortic stenosis status post TAVR, hypertension is here today for initial consultation. Patient had CT scan on 06/23/2024 that showed lobulated mass posterior to the gastric body measuring 3.9 x 3.8 cm. The lesion is contacting the stomach wall and the inferior margin of the pancreas. Patient had CT scan done in July prior going for aortic valve replacement TAVR protocol and did not show anything. I have discuss this with Dr. Rebollar. As this CT scan is only looking at the arteries did not show the mass. Patient reports that she has been having less appetite. Reports some weight loss. Denies any nausea or vomiting. Denies any melena, hematochezia. Denies any abdominal pain or discomfort. [facility] Medical History Type 2 diabetes mellitus with unspecified complications Lymphoma Essential hypertension Cough Post covid-19 condition, unspecified Surgical History S/P cardiac cath Family History Father No problems noted. Mother No problems noted. Social History Comment: social/rare Patient Tobacco Use Status: Former Tobacco user Review of Systems Const Denies weight gain and Reports weight loss ENT Reports no additional complaints, Denies dysphagia and Denies odynophagia Card Reports no additional complaints Resp Reports no additional complaints GI Denies abdominal pain, Denies belching, Denies melena, Denies bloating, Denies change in bowel habits, Denies dysphagia, Denies excessive flatus, Denies dyspepsia, Denies heartburn, Denies diarrhea, Denies loose stools, Denies nausea, Denies odynophagia, Denies vomiting and Reports other (Loss of appetite) Reports no additional complaints Musc Reports no additional complaints Neuro Reports no additional complaints Psych Reports no additional complaints Endo Reports no additional complaints Physical Exam Vital Signs: Last Vital Signs Pulse 100 09/06/24 15:30 BP 110/60 09/06/24 15:30 Pulse Ox 97 09/06/24 15:30 Oxygen Delivery Method Room Air 09/06/24 15:30 BMI result Body Mass Index 23.4 Const General: healthy appearing, no acute distress and well developed Nutritional Appearance: well nourished Orientation/consciousness: patient oriented x3 Resp Effort & Inspection: normal respiratory effort, able to speak in complete sentences, no tracheal deviation and symmetric chest movement Auscultation: clear to auscultation bilaterally GI Inspection: Yes normal to inspection and No distended Palpation (GI): Soft to palpation, not firm, nontender and No hepatosplenomegaly present Auscultation: normal bowel sounds General: Yes no CVA tenderness Back/Spine/Pelvis Back: no CVA tenderness Skin General skin exam: elasticity normal, turgor normal and dry skin Neuro General: patient oriented x3 Psych Appearance: grossly normal Mental Status: mental status grossly normal Assessment & Plan Assessment & Plan (1) Gastric mass: Code(s): K31.89 - Other diseases of stomach and duodenum (2) Pancreatic mass: Code(s): K86.89 - Other specified diseases of pancreas Plan Will send patient for upper GI with barium swallow. Spoke with Dr. Rebollar. Patient just had TAVR procedure 2 weeks ago. She would be able to go for upper endoscopy if needed, however patient would need to most likely stop aspirin. Patient is Jehovah Witness and would not accept the blood transfusion if she was going to have complication post procedure. Patient will be seeing me in 4-5 weeks to discuss this again. Will send her for upper GI with barium swallow. Will possibly send her also for MRI of abdomen to further evaluate the lesion. Patient is agreeable to this plan and verbalizes understanding of instructions. She was given the opportunity to ask questions and all questions answered. Thank you for allowing me to participate in her care Orders: Orders [place] upper GI w Ba Swallow 09/06/24 K21.9 - Gastro-esophageal reflux disease without esophagitis MR abdomen wo/w con Today K31.9 - Disease of stomach and duodenum, unspecified, K86.9 - Disease of pancreas, unspecified Coding Level of Care Code New Pt Level 4 (42941) Diagnoses Gastric mass K31.89 Pancreatic mass K86.89 Time Spent (min) 50 Comment 35 minutes spent with patient and additional 15 minutes spent reviewing her records
[2024-09-06 15:30] VITALS: BP 110/60; PULSE 100; O2SAT 97; BMI 23.4
--- OUTSIDE RECORDS SUMMARY | 2024-09-06 15:32 | XMS_ITS | Data Portability ---
Author Organization [employer] [facility], [facility] Address [address] [place] [address] Care Team Providers Care Trademark Paralegal Name Role Phone WILMA ALLAN Primary Care Provider [facility] OTHER [facility] OTHER Assessment Encounter Date Assessment Date [...] quality. She is not on paxlovid. VSS. Commercial Hvac Service Technician on site reports that she appears well, clear lung sounds bilaterally, ambulating and speaking full sentences without respiratory distress on room air. Presentation consistent with ongoing COVID URI, will give a dose of benzonatate and send rx to pharmacy. Continue ongoing over the counter management, unfortunately now outside of the window for paxlovid. [email or web address] Not available 04/26/2022 17:22:05 07/14/2023 07/14/2023 I have reviewed and agree with the assessment and plan as documented by the gas distribution plant operator. I provided real time medical direction for this encounter and was immediately available to provide additional phone based assistance as needed. History as noted by gas distribution plant operator. Pt with history of lymphoma, [...] None recorded. Lab urinalysis, dipstick 2022 023 [facility] [address], [phone] 3 13:14:02 glucose, fingerstick , blood 2022 [address] [facility] [address], [phone] 3 13:09:09 Referral None recorded. Procedures None recorded. Surgeries None recorded. Imaging None recorded. Medication Orders cetirizine 10 mg tablet 2023 024 SEVERO Not available 4 10:16:11 benzonatate 100 mg capsule 2023 024 SEVERO Not available 4 10:16:11 benzonatate 100 mg capsule 2022 023 SEVERO Not available 15:04:35 Patient TargetsNo targets recorded. Patient InstructionsNo instructions recorded. Reason for Referral None Reported. Results Created Date Observation Date Name Description Value Unit Range Abnormal Flag Note LastModifiedBy Organization Detail LastModifiedTime 11/07/1911/06/2022 urina lysis , dipst ick Leukocytes neg Not Available Main - [facility] [address] [place] [address], [phone] 11/06/2022 13:13:47 11/07/19 23 11/06/2022 urina lysis , dipst ick Nitrite negati ve Not Available Main - Inst [address], [phone] 11/06/2022 13:13:47 11/07/19 23 11/06/2022 urina lysis , dipst ick Protein neg Not Available Main - Ins [address], [address] 11/06/2022 13:13:47 11/07/19 23 11/06/2022 urina lysis , dipst ick Blood neg Not Available Main - Ins [address], [address] 11/06/2022 13:13:47 11/07/19 23 11/06/2022 urina lysis , dipst ick Ketone neg Not Available Main - Ins [address], [address] 11/06/2022 13:13:47 11/07/19 23 11/06/2022 urina lysis , dipst ick Glucose neg Not Available Main - Ins [address], [address] 11/06/2022 13:13:47 11/07/19 23 11/06/2022 gluco se, finge rstic k, blood Blood Glucose: mg/dl 50 Not Available Main - [facility] [address] [place] [address], [phone] 11/06/2022 13:09:00 Result Notes None recorded. Medical [...] saturation in Arterial blood by Pulse oximetry Provider Name and Address Organization Details Last Updated DateTime 3 97.8 [degF] 56688.2 24 g 18 /min 99 % 99 % 72 /min 98224.2 24 g 72 /min 97.8 [degF] 18 /min 99 % 99 % Not Available [facility] - production 3 15:20:23 Date Recorded Systolic And Diastolic Systolic And Diastolic Provider Name and Address Organization Details Last Updated DateTime 04/26/2022 154/64 mm[Hg] 154/64 mm[Hg] Not Available [facility] - production 04/26/2022 15:20:23 Date Recorded Heart rate Oxygen saturation Oxygen saturation in Arterial blood by Pulse oximetry Body temperature Respiratory rate Body weight Body height Systolic And Diastolic Provider Name and Address Organization Details Last Updated DateTime 4 84 /min 99 % 99 % 97.6 [degF] 14 /min 79516.7 36 g 154.94 cm 137/81 mm[Hg] Not Available [facility] - production 4 10:09:32 Date Recorded Oxygen saturation Oxygen saturation in Arterial blood by Pulse oximetry Body temperature Body weight Body height Heart rate Respiratory rate Systolic And Diastolic Provider Name and Address Organization Details Last Updated DateTime 4 98 % 98 % 98.4 [degF] 52791 g 152.4 cm 90 /min 14 /min 124/80 mm[Hg] Not Available [facility] - production 4 20:55:20 Date Recorded Respiratory rate Heart rate Body temperature Oxygen saturation Oxygen saturation in Arterial blood by Pulse oximetry Systolic And Diastolic Provider Name and Address Organization Details Last Updated DateTime 3 18 /min 66 /min 97.7 [degF] 99 % 99 % 178/64 mm[Hg] Not Available [facility] - production 3 12:51:42 Social History None recorded. Functional [...] [id number] Maria Alejandra Parada MD Main - [address] [phone] 04/26/2022 15:00:05 04/29/2022 09:43:15 Cough [id number] R05.9 [id number] Daisy Butler MD Main - [address] [phone] 11/06/2022 12:51:33 11/06/2022 23:26:09 Elderly fall [id number] R29.6 Evaluation in the field was performed by my gas distribution plant operator colleague, as noted above, I [...] on blood thinners so no indication for BUTTON GRADER imaging. Fall appears 2/2 orthostasi s, BP [...] of breath, cough, chest pain, fever. Hypoglycemia 496338217 E 16.2 On gas distribution plant operator eval FSG 50 but no symptoms of hypoglycem ia, normal mentation. Able to drink juice. instructed pt to hold glipizide and con't metformin until PCP follow up. Does not appear to contribute to fall but is additional risk factor. [id number] Siddhartha Noyola MD Main - [facility] [address] [place] [phone] 07/14/2023 10:09:30 07/14/2023 17:38:30 Cough 14335712 R05.9 [id number] Boris Jaquez MD Main - [facility] [address] [place] [phone] 07/16/2023 20:55:09 07/17/2023 22:05:28 Viral syndrome [id number] B34.9 Patient with some mild erythema to [...] Concerns Section Related Observation LastModified by Organization Jessica ls LastModified Time None Recorded Concern Status LastModified by Organization Details LastModified Time None Recorded Advance Directives Directive None Recorded Payers Insurance Date Sequence Insurance Name Policy Number Policy Hooper Covered Member ID Hooper Member ID Guarantor Name 07/14/2023 1 [facility] (MEDICARE REPLACEMENT/ADV ANTAGE - PPO) Bhumi Poole [id number] Bhumi Poole 07/14/2023 1 [facility] - DOS ON OR AFTER 2022 - DUAL ELIGIBLE - PRISON OPT[employer] AND ONE [employer] (MEDICARE REPLACEMENT/ADV ANTAGE - HMO) Bhumicarroll Poole [id number] Bhumi Virgilio 07/14/2023 1 [facility] - DOS ON OR AFTER 2022 - MEDICARE [place]VANTAGE [place] (MEDICARE REPLACEMENT/ADV ANTAGE - PPO) Bhumicarroll Poole [id number] Bhumi Poole Notes Date Note Type Note [...] ..................... ..................... ..................... ..................... ..................... ..................... ............... Commercial Hvac Service Technician Note From Yaniv Renee: Pt presents A@Ox4 [...] clear bilaterally . 02 sat 98% . C contacted and 100mg Benzonatate given PO. Prescription for Benzonatate called into her pharmacy: Pt educated on signs that would indicate the ED. Pt advised to follow up with PCP. ..................... ..................... ..................... ..................... ..................... ..................... ............... Disposition: Fulfilled Maria Alejandra Parada MD [address] [facility],[address], [place], [phone], [employer] 04/26/2022 17:22:09 11/06/2022 text/html HPI: HX: DM [...] ..................... ..................... ..................... ..................... ..................... ..................... ............... [facility] Nursing Assessment: Comments: CRC RN did not require any additional information to process this visit. ..................... ..................... ..................... ..................... ..................... ..................... ............... Commercial Hvac Service Technician Note From Joe Corona: PT sustained a [...] from family when moving in the home. [facility] Lab Orders: urinalysis, dipstick: Performed Comment: Unremarkable glucose, fingerstick, blood: Performed Comment: 50-Rx Glipizide discussed w/ family and PT ..................... ..................... ..................... ..................... ..................... ..................... ............... Disposition: Fulfilled Daisy Butler MD [address] [facility],[address], [place], [phone], [employer] 11/06/2022 13:53:33 07/14/2023 text/html This was a super vised home visit with gas distribution plant operator Ramiro Jean. HPI: Hx: Follicular lymphoma.Daughter calling as patient bothered by persistent cough and weakness for several weeks. Phlegm noted now to be green. No fever or ear pain. ..................... ..................... ..................... ..................... ..................... ..................... ............... CRC Nurse Triage Notes (Princess Mayo): Comments: CRC RN DID NOT NEED FURTHER INFO ..................... ..................... ..................... ..................... ..................... ..................... ............... Commercial Hvac Service Technician Note From Ramiro Jean: Pt reports for [...] CTA. Benign ABD exam. No LE edema. Pt s sx seem c/w seasonal allergies. I recommend restarting the fluticasone bid, adding cetirizine qd and continuing the mucinex. Pt/daughter educated on prescriptions. Pt/daughter instructed to f/u with PCP later this week and to seek emergent medical care for new or worsening sx, which are reviewed with them. ..................... ..................... ..................... ..................... ..................... ..................... ............... Disposition: Fulfilled Siddhartha Noyola MD [address] [facility],[address], [place], [phone], [facility] [place] 07/14/2023 11:16:26 07/16/2023 text/html HPI: Call returned to Bhumi Poole to triage below. Spoke with daughter who is on HIPAA. Pt seen last week by [facility]. Pt having yellow discharge on right eye x 1 day. Pt having redness of white of eye. No swelling of eye lid. No itching or pain. Also having nasal secretions. Pt eye was crusted shut this morning. Pt advised of disposition, agrees to [facility] eval as unable to come into [facility] and no standing order for antibiotic eye drops at our facility. Confirmed allergies and contact information including address. ..................... ..................... ..................... ..................... ..................... ..................... ............... CRC Nurse Triage Notes (Princess Mayo): Comments: CRC RN DID NOT NEED FURTHER INFO Member is safe and stable to wait till 07/16 ..................... ..................... ..................... ..................... ..................... ..................... ............... Commercial Hvac Service Technician Note From Fred Lawrence: Patient conscious alert and oriented times three. Information through Management Accountant due to strong language barrier. Patient complains of burning itching, redness to right eye times six hours. Patient has been being treated for a viral cold symptoms with benzonatate and cetirizine. Patient reports blurred vision in right eye. Patient denies any other pain or complaints. Patient reports cough is better than it was on Friday.[place] warm and dry, secondary exam unremarkable. right eye red with some pus, no swelling. [place] [facility] recommends, supportive care, including wet compresses, and lubricating eyedropsPatient and daughter caregiver demonstrate understanding of condition and plan. Patient states she will follow up with tool machine shop supervisor MAXIMO. Red flags and patient education discussed ..................... ..................... ..................... ..................... ..................... ..................... ............... Disposition: Fulfilled Boris Jaquez MD [address] [place] [address],[address], [place], [phone], [place] 07/16/2023 21:41:18 OBGyn Episode No OBEpisode recorded.
== END 2024-09-06 16:09 | disposition home or self-care (01) ==
LOC: HO.HGI 15:10
PROVIDERS: PCP General Practice; Visit Provider Nurse Practitioner Family
DX: K31.89 Other diseases of stomach and duodenum (principal); K86.89 Other specified diseases of pancreas
CPT/HCPCS: 99204

== ENCOUNTER → 2024-09-06 15:09 | Outpatient (BNVA) | payer MEDICARE, SELFPAY | PROVIDERS: PCP General Practice; Visit Provider Nurse Practitioner Family | DX: K31.89 Other diseases of stomach and duodenum (principal); K86.89 Other specified diseases of pancreas | CPT/HCPCS: 99202 ==

== ENCOUNTER → 2024-09-09 14:47 | Outpatient (BNV) | payer MEDICARE, SELFPAY | PROVIDERS: Visit Provider Radiology Diagnostic Radiology | DX: K66.8 Other specified disorders of peritoneum (principal); R59.0 Localized enlarged lymph nodes; D37.8 Neoplasm of uncertain behavior of other specified digestive organs | CPT/HCPCS: 74183 ==

== ENCOUNTER 2024-09-09 14:49 | Outpatient (REF) | payer MEDICARE, SELFPAY ==
--- NOTE | ~2024-09-09 | MR_ITS ---
EXAMINATION: MR ABDOMEN WITHOUT THEN WITH IV CONTRAST HISTORY: K31.9 - Disease of stomach and duodenum, unspecified COMPARISON: There are no prior studies available for comparison. TECHNIQUE: Axial in and out of phase T1-weighted gradient echo, axial diffusion weighted, and axial and coronal HASTE T2 with fat saturation images were obtained through the abdomen. 3D MRCP Reconstructed and thin and thick slab images of the biliary tree were obtained. Subsequently, fat suppressed axial and coronal T1-weighted images were obtained after the intravenous administration of 5.5 mL Gadavist. FINDINGS: Liver: There is no loss of signal intensity in the liver on opposed phase imaging to suggest steatosis. There is no enhancing liver mass. The hepatic and portal veins are patent. There is no intrahepatic biliary dilatation. Gallbladder/biliary tree: The patient is status post cholecystectomy. The common bile duct measures up to 10 mm in diameter, likely within normal limits for a patient status post cholecystectomy. No intraluminal filling defects are identified to suggest choledocholithiasis. Spleen: The spleen is unremarkable. Visualized bowel: There is an enhancing soft tissue mass measuring 5.3 x 3.9 x 4.6 cm which is contiguous with the greater curvature of the gastric body. No fat plane is seen between the mass and the stomach as well as between the mass and the pancreatic tail. There is greater contact with the wall of the stomach and the pancreatic tail favoring gastric carcinoma.. Pancreas: There is mild dilatation of the pancreatic duct. The pancreas is otherwise unremarkable. There is no enhancing pancreatic mass. Adrenals: The adrenal glands are unremarkable. Kidneys: The kidneys are unremarkable. There is no hydronephrosis. Lymph nodes: Numerous enlarged lymph nodes are identified including a right paracardiac node measuring 1.4 cm and a left pericardiac node measuring 3.0 x 1.5 cm. There are celiac axis nodes measuring up to 2.1 cm, paracaval nodes measuring up to 1.7 cm, and para-aortic nodes measuring up to 2.6 cm. There are multiple omental nodules measuring up to 10 mm in size, as well as infiltration of the omental fat to the left of midline compatible with omental caking. Fluid: There is no ascites in the upper abdomen. Visualized bones: The visualized bones demonstrate normal marrow signal intensity. MR/MR abdomen wo/w con IMPRESSION: 1. 5.3 x 3.9 x 4.6 cm mass contiguous with the greater curvature of the gastric body and the pancreatic tail. Greater contact with the stomach, and the pattern of metastatic disease and omental caking favors gastric carcinoma. 2. Diffuse abdominal and paracardiac lymphadenopathy as described. 3. Omental caking and soft tissue nodules consistent with metastatic disease. Electronically signed by: Ced Perry MD 09/10/2024 07:18 AM EDT
--- OUTSIDE RECORDS SUMMARY | 2024-09-09 15:14 | XMS_ITS | Data Portability ---
Author Organization [employer] [facility], [facility] Address [address] [place] [address] Care Team Providers Care Room Service Food Server Name Role Phone WILMA ALLAN Primary Care Provider [facility] OTHER [facility] OTHER [phone] Assessment Encounter Date Assessment Date Assessment LastModified [...] quality. She is not on paxlovid. VSS. [employer] Administrator on site reports that she appears well, [...] assessment and plan as documented by the luggage repairer. I provided real time medical direction for this encounter and was immediately available to provide additional phone based assistance as needed. History as noted by luggage repairer. Pt with history of lymphoma, DM and [...] None recorded. Lab urinalysis, dipstick [email or web address], [phone] 3 13:14:02 glucose, fingerstick , blood [email or web address], [phone] 3 13:09:09 Referral None recorded. Procedures None [...] Leukocytes neg Not Available Main - [facility] [address] [place] [address], [phone] 11/06/2022 13:13:47 11/07/19 23 11/06/2022 urina lysis , dipst ick Nitrite negati ve Not Available Main - Inst [address], [phone] 11/06/2022 13:13:47 11/07/19 23 11/06/2022 urina lysis , dipst ick Protein neg Not Available Main - Ins [address], [phone] 11/06/2022 13:13:47 11/07/19 23 11/06/2022 urina lysis , dipst ick Blood neg Not Available Main - Ins [address], [address] 11/06/2022 13:13:47 11/07/19 23 11/06/2022 urina lysis , dipst ick Ketone neg Not Available Main - Ins [address], [phone] 11/06/2022 13:13:47 11/07/19 23 11/06/2022 urina lysis , dipst ick Glucose neg Not Available Main - Ins [address], [address] 11/06/2022 13:13:47 11/07/19 23 11/06/2022 gluco se, finge rstic k, blood Blood Glucose: mg/dl 50 Not Available Main - [facility] [address] [place] [address], [phone] 11/06/2022 13:09:00 Result Notes None recorded. Medical [...] Details Last Updated DateTime 3 97.8 [degF] 75909.2 24 g 18 /min 99 % 99 % 72 /min 68197.2 24 g 72 /min 97.8 [degF] 18 [...] % 99 % 97.6 [degF] 14 /min 39143.7 36 g 154.94 cm 137/81 mm[Hg] Not Available [facility] - production 4 10:09:32 Date Recorded Oxygen saturation Oxygen saturation in Arterial blood by Pulse oximetry Body temperature Body weight Body height Heart rate Respiratory rate Systolic And Diastolic Provider Name and Address Organization Details Last Updated DateTime 4 98 % 98 % 98.4 [degF] 91603 g 152.4 cm 90 /min 14 /min 124/80 mm[Hg] Not Available [employer] - production 4 20:55:20 Date Recorded Respiratory rate Heart rate Body temperature Oxygen saturation Oxygen saturation in Arterial blood by Pulse oximetry Systolic And Diastolic Provider Name and Address Organization Details Last Updated DateTime 3 18 /min 66 /min 97.7 [degF] 99 % 99 % 178/64 mm[Hg] Not Available [employer] - production 3 12:51:42 Social History None [...] [id number] Maria Alejandra Parada MD Main - [address] [phone] 04/26/2022 15:00:05 04/29/2022 09:43:15 Cough [id number] R05.9 [id number] Daisy Butler MD Main - [address] [phone] 11/06/2022 12:51:33 11/06/2022 23:26:09 Elderly fall [id number] R29.6 Evaluation in the field was performed by my luggage repairer colleague, as noted above, I provided real-time [...] on blood thinners so no indication for [facility]ER imaging. Fall appears 2/2 orthostasi s, BP [...] of breath, cough, chest pain, fever. Hypoglycemia [id number] E 16.2 On luggage repairer eval FSG 50 but no symptoms of hypoglycem ia, normal mentation. Able to drink juice. instructed pt to hold glipizide and con't metformin until PCP follow up. Does not appear to contribute to fall but is additional risk factor. [id number] Siddhartha Noyola MD Main - [facility] [address] [place] [phone] 07/14/2023 10:09:30 07/14/2023 17:38:30 Cough [id number] R05.9 [id number] Boris Jaquez MD Main - [facility] [address] [place] [phone] 07/16/2023 20:55:09 07/17/2023 22:05:28 Viral syndrome [id number] B34.9 Patient with some mild erythema to [...] Hooper Member ID Guarantor Name 07/14/2023 1 [facility] (MEDICARE REPLACEMENT/ADV ANTAGE - PPO) Bhumi Poole [id number] Bhumi Poole 07/14/2023 1 [facility] - DOS ON OR AFTER 2022 - DUAL ELIGIBLE - [facility] OPTIONS AND ONE CARE (MEDICARE REPLACEMENT/ADV ANTAGE - HMO) Bhumicarroll Poole [id number] Bhumi Virgilio 07/14/2023 1 [facility] - DOS ON OR AFTER 2022 - MEDICARE ADVANTAGE [place] (MEDICARE REPLACEMENT/ADV ANTAGE - PPO) Bhumicarroll Poole [id number] Bhumi Poole Notes Date Note Type Note [...] ..................... ..................... ..................... ..................... ..................... ..................... ............... [employer] Administrator Note From Yaniv Renee: Pt presents A@Ox4 [...] Disposition: Fulfilled Maria Alejandra Parada MD [address], [place], [address], [facility] 04/26/2022 17:22:09 11/06/2022 text/html HPI: HX: DM [...] ..................... ..................... ..................... ..................... ..................... ..................... ............... [facility] Nursing Assessment: Comments: CRC RN did not require any additional information to process this visit. ..................... ..................... ..................... ..................... ..................... ..................... ............... [employer] Administrator Note From Joe Corona: PT sustained a [...] from family when moving in the home. [facility] Lab Orders: urinalysis, dipstick: Performed Comment: Unremarkable glucose, fingerstick, blood: Performed Comment: 50-Rx Glipizide discussed w/ family and PT ..................... ..................... ..................... ..................... ..................... ..................... ............... Disposition: Fulfilled Daisy Butler MD [address], [place], [address], [facility] 11/06/2022 13:53:33 07/14/2023 text/html This was a super vised home visit with luggage repairer aRmiro Jean. HPI: Hx: Follicular lymphoma.Daughter calling as patient bothered by persistent cough and weakness for several weeks. Phlegm noted now to be green. No fever or ear pain. ..................... ..................... ..................... ..................... ..................... ..................... ............... CRC Nurse Triage Notes (Princess Mayo): Comments: CRC RN DID NOT NEED FURTHER INFO ..................... ..................... ..................... ..................... ..................... ..................... ............... [employer] Administrator Note From Ramiro Jean: Pt reports for [...] ............... Disposition: Fulfilled Siddhartha Noyola MD [address], [place], [phone], [facility] [email or web address] 07/14/2023 11:16:26 07/16/2023 text/html HPI: Call returned to Bhumi Poole to triage below. Spoke with daughter who is on HIPAA. Pt seen last week by KudoalaALINA. Pt having yellow discharge on right eye x 1 day. Pt having redness of white of eye. No swelling of eye lid. No itching or pain. Also having nasal secretions. Pt eye was crusted shut this morning. Pt advised of disposition, agrees to KudoalaALINA eval as unable to come into [facility] and no standing order for antibiotic eye drops at our facility. Confirmed allergies and contact information including address. ..................... ..................... ..................... ..................... ..................... ..................... ............... CRC Nurse Triage Notes (Princess Mayo): Comments: CRC RN DID NOT NEED FURTHER INFO Member is safe and stable to wait till 07/16 ..................... ..................... ..................... ..................... ..................... ..................... ............... [employer] Administrator Note From Fred Lawrence: Patient conscious alert and oriented times three. Information through Sports Equipment Supervisor due to strong language barrier. Patient complains of burning itching, redness to right eye times six hours. Patient has been being treated for a viral cold symptoms with benzonatate and cetirizine. Patient reports blurred vision in right eye. Patient denies any other pain or complaints. Patient reports cough is better than it was on Friday.Ferris warm and dry, secondary exam unremarkable. right eye red with some pus, no swelling. Pic attached [facility] recommends, supportive care, including wet compresses, and lubricating eyedropsPatient and daughter caregiver demonstrate understanding of condition and plan. Patient states she will follow up with preconstruction manager MAXIMO. Red flags and patient education discussed ..................... ..................... ..................... ..................... ..................... ..................... ............... Disposition: Fulfilled Boris Jaquez MD [address] [place] [address],[address], [place], [address], [facility] 07/16/2023 21:41:18 OBGyn Episode No OBEpisode recorded.
== END 2024-09-09 14:50 | disposition home or self-care (01) ==
LOC: HO.MRI 14:49
PROVIDERS: Visit Provider Nurse Practitioner Family
DX: K31.9 Disease of stomach and duodenum, unspecified (principal); K86.9 Disease of pancreas, unspecified
CPT/HCPCS: 74183; A9585

== ENCOUNTER 2024-09-13 10:47 | Day surgery (SDC) | payer MEDICARE, SELFPAY ==
--- NOTE | 2024-09-10 13:43 | HO.ANESPROP2 ---
Documented by User: Danika Borwn NP 09/10/24 14:12 HPI - Anesthesia Eval Consult details Narrative: 84yo F for Upper Endoscopy s/p TAVR 08/26/[address] Rebollar. GI provider spoke with Dr Rebollar for OK to proceed. Jehovah Witness - pt will hold aspirin preop Case reviewed with [facility] Active Problems Active Problems: All Active Problems Lymphoma (Acute) Essential hypertension (Acute) Non-rheumatic aortic stenosis (Acute) Cough (Acute) Post covid-19 condition, unspecified (Acute) Past Medical History Medical History Type 2 diabetes mellitus with unspecified complications Lymphoma Essential hypertension Cough Post covid-19 condition, unspecified Family History Family History Father No problems noted. Mother No problems noted. Surgical History Surgical History S/P TAVR (transcatheter aortic valve replacement) (~08/26/24) S/P cardiac cath Social History Social History Household Members: Family Housing: House Are you a primary technical healthcare consultant to a significant other at home: No Do you presently have visiting nurse or other home services: No Comment: social/rare Patient Tobacco Use Status: Former Tobacco user Second Hand Smoke Exposure: No service: No Current occupational status: retired and disabled Meds Allergies Allergy/AdvReac Type Severity Reaction Status Date / Time No Known Allergies Allergy Verified 09/10/24 14:24 Home Medications ?Medication ?Instructions ?Recorded ?Confirmed ?Last Taken ?Type blood sugar diagnostic (OneTouch #10 ea 03/07/22 09/13/24 Unknown History Ultra Test strips) metoprolol succinate 50 mg 50 mg PO DAILY 03/07/22 09/13/24 09/13/24 History tablet,extended release 24 hr metformin 500 mg tablet 500 mg PO DAILY 10/28/23 09/13/24 09/13/24 History aspirin 81 mg tablet 81 mg PO DAILY 09/06/24 09/13/24 09/13/24 History docusate sodium 100 mg capsule 100 mg PO BID 09/06/24 09/13/24 Unknown History fluticasone propionate 50 1 spray intranasal DAILY 09/06/24 09/13/24 Unknown History mcg/actuation nasal spray,suspension guaifenesin 600 mg tablet, 600 mg PO BID 09/06/24 09/13/24 Unknown History extended release 12 hr loratadine 10 mg tablet 10 mg PO QAM 09/06/24 09/13/24 Unknown History losartan 100 mg tablet 100 mg PO DAILY 09/06/24 09/13/24 09/13/24 History sennosides 8.6 mg tablet (senna) 17.2 mg PO QAM 09/06/24 09/13/24 09/13/24 History Exam Pertinent Lab Results Pertinent Lab Results: Laboratory Tests 07/09/24 15:17 WBC 7.2 Hgb 11.9 L Hct 36.6 L Plt Count 247 Sodium 142 Potassium 4.5 Chloride 105 Carbon Dioxide 26 BUN 24 H Creatinine 1.10 Narrative Narrative: 08/2024 MR abdomen wo/w con IMPRESSION: 1. 5.3 x 3.9 x 4.6 cm mass contiguous with the greater curvature of the gastric body and the pancreatic tail. Greater contact with the stomach, and the pattern of metastatic disease and omental caking favors gastric carcinoma. 2. Diffuse abdominal and paracardiac lymphadenopathy as described. 3. Omental caking and soft tissue nodules consistent with metastatic disease. ECHO 02/2024 Conclusions: - Normal left ventricular cavity size. There is normal left ventricular wall thickness. The left ventricular systolic function is hyperdynamic. The visually estimated ejection fraction is >70%. - Normal right ventricular cavity size. There is low normal right ventricular systolic function. - The left atrium is moderately dilated. - There is severe calcification of the aortic valve. There is severe aortic valve stenosis. The peak aortic velocity is 2.88 m/s. The mean gradient is 19 mmHg. The aortic valve area is 0.57 cm2. SVI 27. Assessment and Plan Assessment Anesthesia Assessment: Chart Reviewed Documented by User: Alessandro Abdi MD 09/13/24 12:42 [facility] Past Medical History Medical History Type 2 diabetes mellitus with unspecified complications Lymphoma Essential hypertension Cough Post covid-19 condition, unspecified Functional capacity: independent ambulation Patient : No Family History Family History Father No problems noted. Mother No problems noted. Family history of problems with anesthesia: No Surgical History Surgical History S/P TAVR (transcatheter aortic valve replacement) (~08/26/24) S/P cardiac cath History of Problems with Anesthesia: No Social History Social History Household Members: Family Housing: House Are you a primary technical healthcare consultant to a significant other at home: No Do you presently have visiting nurse or other home services: No Comment: social/rare Patient Tobacco Use Status: Former Tobacco user Second Hand Smoke Exposure: No service: No Current occupational status: retired and disabled Meds Allergies Allergy/AdvReac Type Severity Reaction Status Date / Time No Known Allergies Allergy Verified 09/10/24 14:24 Home Medications ?Medication ?Instructions ?Recorded ?Confirmed ?Last Taken ?Type blood sugar diagnostic (OneTouch #10 ea 03/07/22 09/13/24 Unknown History Ultra Test strips) metoprolol succinate 50 mg 50 mg PO DAILY 03/07/22 09/13/24 09/13/24 History tablet,extended release 24 hr metformin 500 mg tablet 500 mg PO DAILY 10/28/23 09/13/24 09/13/24 History aspirin 81 mg tablet 81 mg PO DAILY 09/06/24 09/13/24 09/13/24 History docusate sodium 100 mg capsule 100 mg PO BID 09/06/24 09/13/24 Unknown History fluticasone propionate 50 1 spray intranasal DAILY 09/06/24 09/13/24 Unknown History mcg/actuation nasal spray,suspension guaifenesin 600 mg tablet, 600 mg PO BID 09/06/24 09/13/24 Unknown History extended release 12 hr loratadine 10 mg tablet 10 mg PO QAM 09/06/24 09/13/24 Unknown History losartan 100 mg tablet 100 mg PO DAILY 09/06/24 09/13/24 09/13/24 History sennosides 8.6 mg tablet (senna) 17.2 mg PO QAM 09/06/24 09/13/24 09/13/24 History Exam Exam Date and Time: 09/13/2024 Airway Mallampati Class: II TM Dist: >3cm Neck ROM: Full Denture: Upper Loose/Missing/Broken Teeth: No Heart: rrr Lungs: cta Other: normal Assessment and Plan Assessment Anesthesia Assessment: Anesthesia Plan Discussed Final Anesthetic Review Family History of Problems with Anesthesia: No History of Problems with Anesthesia: No NPO: Yes ASA Class: III Final Preanesthetic Review: No Changes in Pt Med Stat, Meds/Allgs Chart Reviewed, Consent Obtained/Reviewed and Anes Risks/Benef Reviewed Patient Risk: Low Procedure Risk: Low Anesthetic Plan Anesthetic Plan: MAC: and Agree w/ Assess. and Plan Disposition: Standard PACU
[2024-09-13 12:09] VITALS: BMI 23.4
--- NOTE | 2024-09-13 12:25 | MHC.SHP ---
Pre-Procedural Eval Section A - 24 Hr Update-Section A only Date of Service: 09/13/24 The patient is an INPATIENT: No Changes since office visit: Yes Patient answered all questions; No Cold of Flu in the past 2 weeks, No New Medical Problems and No Changes in Medication The patient has been examined within 24 hours of the surgical procedure. The History & Physical has been completed within 30 days and I have reviewed it.: Yes Section B - Complete if H&P > 30 days Chief Complaint: gastric mass on abd MRI Allergies: Allergies Allergy/AdvReac Type Severity Reaction Status Date / Time No Known Allergies Allergy Verified 09/10/24 14:24 Plan Diagnosis/Plan: Unchanged I have reviewed the history and physical and performed a pertinent physical examination on my patient. No changes have occurred unless specified. Time Spent With Patient Time: Total time managing care of this patient today ____ minutes.
[2024-09-13 12:34] VITALS: BP 176/64; PULSE 68; RESP 15; TEMP 36.6; O2SAT 97
[2024-09-13] MEDS: Lactated Ringers 1,000 ML 100 ML IVCONT (12:36)
[2024-09-13 12:46] LABS: Glucose, Whole Blood 91 mg/dL (60-115)
[2024-09-13 13:15] VITALS: BP 102/40; PULSE 70; RESP 20; TEMP 36.2; O2SAT 94
--- NOTE | 2024-09-13 13:16 | W.PM.OPN ---
Operative Note Operative Note Date of Service: 09/13/24 Narrative: FLEXIBLE TRANSORAL UPPER GASTROINTESTINAL ENDOSCOPY WITH BIOPSIES Pre-op diagnosis: suspected gastric mass on MRI scan Post-op diagnosis: Gastritis, gastric erosion, gastric polyps Specimens and Sources: : a- gastric antrum bxs r/o h pylori ?b- gastric erosion bxs ?c- gastric polyp Endoscopist:? Adam Gramajo MD Anesthesia:?MAC UPPER ENDOSCOPY Consent: Indications for the procedure and potential complications of bleeding, perforation, reaction to medications and missed diagnosis were discussed with the patient and informed consent was obtained. Instrument: Olympus GIF H 190 mid size upper endoscope Monitoring: Vital signs and clinical assessment, continuous EKG monitoring, Pulse oximetry, Carbon Dioxide monitoring and blood pressure monitoring were done throughout the procedure. Procedure: The patient was placed in the left lateral decubitis position and pre-procedure medications were administered and a bite block was placed. The endoscope was inserted into the mouth and advanced under direct vision to the third part of duodenum. A careful inspection was made as the upper endoscope was withdrawn including a retroflexed examination of the proximal stomach; Findings and interventions are described below. Findings: Larynx: Normal Esophagus: GE junction at 35 cms. Mildly tortuous esophagus without stricture or ring Stomach: Moderate diffuse gastric erythema - biopsies were obtained from the antrum. Gastric mucosa was examined with white light and NBI and no mass lesion was seen. A few 5 to 7 mm benign appearing polyps in the gastric body - 1 polyp was biopsied. Linear erosions along the lesser curvature in the distal body - biopsied. Grade 2 flap valve on retroflexed examination of the cardia. Duodenum: Normal bulb and descending duodenum Intervention: Biopsies as noted above Impression and Post Procedure Diagnosis: Endoscopy Findings: ESOPHAGUS: Mildly tortuous esophagus without stricture or ring STOMACH: benign appearing polyps in the gastric body - 1 polyp was biopsied. Linear erosions along the lesser curvature in the distal body - biopsied. No mass noted in the stomach - mass seen on MRI likely arising from the pancreas DUODENUM: Normal Plan: Pt has a FU appointment on 09/21/24 with Brenda Mejia NP Above findings were reviewed with the patient's daughter and relevant handouts were given and the discharge area. Advised further evaluation with Endoscopic US
[2024-09-13 13:30] VITALS: BP 116/48; PULSE 68; RESP 16; O2SAT 93
[2024-09-13 13:39] VITALS: BP 127/50; PULSE 73; RESP 16; TEMP 36.2; O2SAT 96
== END 2024-09-13 14:18 | disposition home or self-care (01) ==
PROVIDERS: Visit Provider Internal Medicine Gastroenterology
PROC: 0DJ08ZZ Inspection of Upper Intestinal Tract, Via Natural or Artificial Opening Endoscopic (ICD-10-PCS; CPT 43235; principal; 2024-09-13 12:50)
DX: K31.89 Other diseases of stomach and duodenum (principal); K86.89 Other specified diseases of pancreas; K22.89 Other specified disease of esophagus; K31.7 Polyp of stomach and duodenum; K29.60 Other gastritis without bleeding; K25.9 Gastric ulcer, unspecified as acute or chronic, without hemorrhage or perforation; E11.9 Type 2 diabetes mellitus without complications; I10 Essential (primary) hypertension; C85.90 Non-Hodgkin lymphoma, unspecified, unspecified site; Z87.891 Personal history of nicotine dependence
CPT/HCPCS: 43239; 82947; 88305; 88313; 88342; J2003; J2250; J2704

== ENCOUNTER → 2024-09-13 10:47 | Outpatient (BNV) | payer MEDICARE, SELFPAY | PROVIDERS: Visit Provider Internal Medicine Gastroenterology | DX: K31.7 Polyp of stomach and duodenum (principal); K29.70 Gastritis, unspecified, without bleeding | CPT/HCPCS: 43239 ==

== ENCOUNTER 2024-09-17 07:08 | Outpatient (REF) | payer MEDICARE, SELFPAY ==
--- NOTE | ~2024-09-17 | FL_ITS ---
EXAMINATION: XR UPPER GI SERIES WITH BARIUM SWALLOW. CLINICAL INFORMATION: History of GERD COMPARISON: None available. TECHNIQUE: Routine upper GI air contrast study was performed in upright and lying position. FINDINGS: Following oral administration of thick barium and effervescent granules and upright view in different projections there is normal propagation bolus from the oral cavity through the pharynx, esophagus into stomach without any of obstruction, narrowing or stricture. No extrinsic compression seen. Following placing patient supine and prone lying the course, caliber and peristalsis of the stomach, duodenal bulb and the sweep is normal.. There is mild irregularity in the first segment of duodenum beyond the bulb suspicious for low-grade duodenitis on some of the images.. Incidental finding of mild gastroesophageal reflux without hiatal hernia. FLUOROSCOPY TIME: 1 minute 42 seconds DOSE AREA PRODUCT: 1178 uGy-m2 (microgray-meter squared) FL/FL upper GI w air w Ba Swallow IMPRESSION: Mild gastroesophageal reflux. Mildly irregular appearing mucosal question segment of duodenum impression duodenitis but no focal ulceration seen. Electronically signed by: Fernandez Chakraborty MD 09/17/2024 10:44 AM EDT
--- OUTSIDE RECORDS SUMMARY | 2024-09-17 07:09 | XMS_ITS | Data Portability ---
Author Organization [employer] [facility], [email or web address] [email or web address] [facility] Address [address] [place] [address] Care Team Providers Care Outside Sales Associate Name Role Phone WILMA ALLAN Primary Care Provider [phone] [facility] OTHER [facility] OTHER Assessment Encounter Date Assessment Date [...] quality. She is not on paxlovid. VSS. Service Officer on site reports that she appears well, [...] assessment and plan as documented by the still photographer. I provided real time medical direction for this encounter and was immediately available to provide additional phone based assistance as needed. History as noted by still photographer. Pt with history of lymphoma, DM and [...] None recorded. Lab urinalysis, dipstick 2022 [address] [facility] [address], [phone] 3 13:14:02 glucose, fingerstick , blood [email or web address], [address] 3 13:09:09 Referral None recorded. Procedures None [...] Leukocytes neg Not Available Main - [facility] [address] [place] [address], [phone] 11/06/2022 13:13:47 11/07/19 23 11/06/2022 urina lysis , dipst ick Nitrite negati ve Not Available Main - Inst [address], [address] 11/06/2022 13:13:47 11/07/19 23 11/06/2022 urina lysis , dipst ick Protein neg Not Available Main - Ins [address], [address] 11/06/2022 13:13:47 11/07/19 23 11/06/2022 urina lysis , dipst ick Blood neg Not Available Main - Ins [address], [address] 11/06/2022 13:13:47 11/07/19 23 11/06/2022 urina lysis , dipst ick Ketone neg Not Available Main - Ins [address], [address] 11/06/2022 13:13:47 11/07/19 23 11/06/2022 urina lysis , dipst ick Glucose neg Not Available Main - Ins [address], [address] 11/06/2022 13:13:47 11/07/19 23 11/06/2022 gluco se, finge rstic k, blood Blood Glucose: mg/dl 50 Not Available Main - [facility] [address] [place] [address], [phone] 11/06/2022 13:09:00 Result Notes None recorded. Medical [...] Details Last Updated DateTime 3 97.8 [degF] 16160.2 24 g 18 /min 99 % 99 % 72 /min 54652.2 24 g 72 /min 97.8 [degF] 18 [...] % 99 % 97.6 [degF] 14 /min 42571.7 36 g 154.94 cm 137/81 mm[Hg] Not Available [facility] - production 4 10:09:32 Date Recorded Oxygen saturation Oxygen saturation in Arterial blood by Pulse oximetry Body temperature Body weight Body height Heart rate Respiratory rate Systolic And Diastolic Provider Name and Address Organization Details Last Updated DateTime 4 98 % 98 % 98.4 [degF] 41165 g 152.4 cm 90 /min 14 /min 124/80 mm[Hg] Not Available [facility] - production 4 20:55:20 Date Recorded Respiratory rate Heart rate Body temperature Oxygen saturation Oxygen saturation in Arterial blood by Pulse oximetry Systolic And Diastolic Provider Name and Address Organization Details Last Updated DateTime 3 18 /min 66 /min 97.7 [degF] 99 % 99 % 178/64 mm[Hg] Not Available [facility] - production 3 12:51:42 Social History None [...] [id number] Maria Alejandra Parada MD Main - [address] [address] 04/26/2022 15:00:05 04/29/2022 09:43:15 Cough 15732077 R05.9 [id number] Daisy Butler MD Main - [address] [address] 11/06/2022 12:51:33 11/06/2022 23:26:09 Elderly fall [id number] R29.6 Evaluation in the field was performed by my still photographer colleague, as noted above, I provided real-time [...] on blood thinners so no indication for COMMERCIAL DECORATOR imaging. Fall appears 2/2 orthostasi s, BP [...] of breath, cough, chest pain, fever. Hypoglycemia [id number] E 16.2 On still photographer eval FSG 50 but no symptoms of hypoglycem ia, normal mentation. Able to drink juice. instructed pt to hold glipizide and con't metformin until PCP follow up. Does not appear to contribute to fall but is additional risk factor. [id number] Siddhartha Noyola MD Main - [facility] [address] [place] [phone] 07/14/2023 10:09:30 07/14/2023 17:38:30 Cough [id number] R05.9 [id number] Boris Jaquez MD Main - [facility] [address] [place] [phone] 07/16/2023 20:55:09 07/17/2023 22:05:28 Viral syndrome [id number] B34.9 Patient with some mild erythema to [...] Hooper Member ID Guarantor Name 07/14/2023 1 [facility] (MEDICARE REPLACEMENT/ADV ANTAGE - PPO) Bhumi Poole [id number] Bhumi Poole 07/14/2023 1 [facility] - DOS ON OR AFTER 2022 - DUAL ELIGIBLE - SENIOR LIVING OPTIONS AND ONE CARE (MEDICARE REPLACEMENT/ADV ANTAGE - HMO) Bhumicarroll Poole [id number] Bhumi Virgilio 07/14/2023 1 [facility] - DOS ON OR AFTER 2022 - MEDICARE ADVANTAGE [place] (MEDICARE REPLACEMENT/ADV ANTAGE - PPO) Bhumicarroll Poole [id number] Bhumi Poole Notes Date Note Type Note [...] ..................... ..................... ..................... ..................... ..................... ..................... ............... Service Officer Note From Yaniv Renee: Pt presents A@Ox4 [...] Disposition: Fulfilled Maria Alejandra Parada MD [address] [facility],[address], [place], [address], [employer] 04/26/2022 17:22:09 11/06/2022 text/html HPI: HX: DM [...] ..................... ..................... ..................... ..................... ..................... ..................... ............... [facility] Nursing Assessment: Comments: CRC RN did not require any additional information to process this visit. ..................... ..................... ..................... ..................... ..................... ..................... ............... Service Officer Note From Joe Corona: PT sustained a [...] from family when moving in the home. [facility] Lab Orders: urinalysis, dipstick: Performed Comment: Unremarkable glucose, fingerstick, blood: Performed Comment: 50-Rx Glipizide discussed w/ family and PT ..................... ..................... ..................... ..................... ..................... ..................... ............... Disposition: Fulfilled Daisy Butler MD [address] [facility],[address], [place], [address], [employer] 11/06/2022 13:53:33 07/14/2023 text/html This was a super vised home visit with still photographer Ramiro Jean. HPI: Hx: Follicular lymphoma.Daughter calling as patient bothered by persistent cough and weakness for several weeks. Phlegm noted now to be green. No fever or ear pain. ..................... ..................... ..................... ..................... ..................... ..................... ............... CRC Nurse Triage Notes (Princess Mayo): Comments: CRC RN DID NOT NEED FURTHER INFO ..................... ..................... ..................... ..................... ..................... ..................... ............... Service Officer Note From Ramiro Jean: Pt reports for [...] ............... Disposition: Fulfilled Siddhartha Noyola MD [address] [facility],[address], [place], [address], [facility] [employer] 07/14/2023 11:16:26 07/16/2023 text/html HPI: Call returned to Bhumi Poole to triage below. Spoke with daughter who is on HIPAA. Pt seen last week by [employer]. Pt having yellow discharge on right eye x 1 day. Pt having redness of white of eye. No swelling of eye lid. No itching or pain. Also having nasal secretions. Pt eye was crusted shut this morning. Pt advised of disposition, agrees to [employer] eval as unable to come into [facility] and no standing order for antibiotic eye drops at our facility. Confirmed allergies and contact information including address. ..................... ..................... ..................... ..................... ..................... ..................... ............... CRC Nurse Triage Notes (Princess Mayo): Comments: CRC RN DID NOT NEED FURTHER INFO Member is safe and stable to wait till 07/16 ..................... ..................... ..................... ..................... ..................... ..................... ............... Service Officer Note From Fred Lawrence: Patient conscious alert and oriented times three. Information through [employer] due to strong language barrier. Patient complains of burning itching, redness to right eye times six hours. Patient has been being treated for a viral cold symptoms with benzonatate and cetirizine. Patient reports blurred vision in right eye. Patient denies any other pain or complaints. Patient reports cough is better than it was on Friday.[place] warm and dry, secondary exam unremarkable. right eye red with some pus, no swelling. Pic attached [facility] recommends, supportive care, including wet compresses, and lubricating eyedropsPatient and daughter caregiver demonstrate understanding of condition and plan. Patient states she will follow up with oncology social worker MAXIMO. Red flags and patient education discussed ..................... ..................... ..................... ..................... ..................... ..................... ............... Disposition: Fulfilled Boris Jaquez MD [address] [place] [address],[address], [place], [address], [employer] 07/16/2023 21:41:18 OBGyn Episode No OBEpisode recorded.
== END 2024-09-17 07:09 | disposition home or self-care (01) ==
LOC: HO.XRAY 07:08
PROVIDERS: Visit Provider Nurse Practitioner Family
DX: K21.9 Gastro-esophageal reflux disease without esophagitis (principal)
CPT/HCPCS: 74246

== ENCOUNTER → 2024-09-17 07:10 | Outpatient (BNV) | payer MEDICARE, SELFPAY | PROVIDERS: Visit Provider Radiology Diagnostic Radiology | DX: K21.9 Gastro-esophageal reflux disease without esophagitis (principal) | CPT/HCPCS: 74246 ==

== ENCOUNTER 2024-09-21 13:37 | Outpatient (AMB) | payer MEDICARE, SELFPAY ==
--- NOTE | 2024-09-21 13:38 | MHC.OFFVIS ---
Vital Signs 09/21/24 13:47 Height 5 ft 2 in Weight 132 lb BMI 24.1 BP 136/42 L Blood Pressure Location Lt brachial Position Sitting Pulse 64 Pulse Source Pulse Oximeter Pulse Oximetry (%) 96 Oxygen Delivery Method Room Air Intake Visit Reasons: EGD results Intake Note: Est pt for mgmt of gastric mass. S/P EGD. CC; Pt denies any changes or new concerns. Reviewing results. Knife Setter Grinder Machine Required: Yes Knife Setter Grinder Machine Services: Knife Setter Grinder Machine Present Knife Setter Grinder Machine Name: Molly [id number] Information Interpreted: clinical only Accompanied by: Daughter Allergies No Known Allergies Allergy (Verified 09/21/24 13:38) HPI HPI EGD results: Details: LAST VISIT: Gastric mass Pancreatic mass Plan Will send patient for upper GI with barium swallow. Spoke with Dr. Rebollar. Patient just had TAVR procedure 2 weeks ago. She would be able to go for upper endoscopy if needed, however patient would need to most likely stop aspirin. Patient is Jehovah Witness and would not accept the blood transfusion if she was going to have complication post procedure. Patient will be seeing me in 4-5 weeks to discuss this again. Will send her for upper GI with barium swallow. Will possibly send her also for MRI of abdomen to further evaluate the lesion. Patient is agreeable to this plan and verbalizes understanding of instructions. She was given the opportunity to ask questions and all questions answered. ? Thank you for allowing me to participate in her care Orders FL upper GI w Ba Swallow 09/06/24 K21.9 MR abdomen wo/w con Today K31.9, K86.9 TODAY'S VISIT Patient is here today for follow-up and to discuss both MRI and upper GI series results. Mass seen between stomach in pancreatic tail. Patient saw oncologist and is going for PET scan next week. Patient has an appointment in early October with [facility] for endoscopic ultrasound to biopsy the mass. Patient reports that she has been feeling well. Reports that she has a good appetite. Reports that she is moving her bowels, uses MiraLax in the morning and docusate sodium twice a day. Denies any melena, hematochezia, unintentional weight loss or ribbon like stools. Patient denies any dyspepsia, dysphagia or odynophagia. [facility] Medical History Type 2 diabetes mellitus with unspecified complications Lymphoma Essential hypertension Cough Post covid-19 condition, unspecified Surgical History S/P TAVR (transcatheter aortic valve replacement) (~08/26/24) S/P cardiac cath Family History Father No problems noted. Mother No problems noted. Social History Household Members: Family Housing: House Are you a primary pediatric critical care nurse to a significant other at home: No Do you presently have visiting nurse or other home services: No Comment: social/rare Patient Tobacco Use Status: Former Tobacco user Second Hand Smoke Exposure: No service: No Current occupational status: retired and disabled Review of Systems Const Denies weight gain and Reports weight loss ENT Reports no additional complaints, Denies dysphagia and Denies odynophagia Card Reports no additional complaints Resp Reports no additional complaints GI Denies abdominal pain, Denies belching, Denies melena, Denies bloating, Denies change in bowel habits, Denies dysphagia, Denies excessive flatus, Denies dyspepsia, Denies heartburn, Denies diarrhea, Denies loose stools, Denies nausea, Denies odynophagia, Denies vomiting and Reports other (Loss of appetite) Reports no additional complaints Musc Reports no additional complaints Neuro Reports no additional complaints Psych Reports no additional complaints Endo Reports no additional complaints Physical Exam Vital Signs: Last Vital Signs Pulse 64 09/21/24 13:47 BP 136/42 L 09/21/24 13:47 Pulse Ox 96 09/21/24 13:47 Oxygen Delivery Method Room Air 09/21/24 13:47 BMI result Body Mass Index 24.1 Const General: healthy appearing, no acute distress and well developed Nutritional Appearance: well nourished Orientation/consciousness: patient oriented x3 Resp Effort & Inspection: normal respiratory effort, able to speak in complete sentences, no tracheal deviation and symmetric chest movement Auscultation: clear to auscultation bilaterally GI Inspection: Yes normal to inspection and No distended Palpation (GI): Soft to palpation, not firm, nontender and No hepatosplenomegaly present Auscultation: normal bowel sounds General: Yes no CVA tenderness Back/Spine/Pelvis Back: no CVA tenderness Skin General skin exam: elasticity normal, turgor normal and dry skin Neuro General: patient oriented x3 Psych Appearance: grossly normal Mental Status: mental status grossly normal Results Reviewed Results Reviewed: ABDOMINAL MRI 09/09/2024 FINDINGS: Liver: There is no loss of signal intensity in the liver on opposed phase imaging to suggest steatosis. There is no enhancing liver mass. The hepatic and portal veins are patent. There is no intrahepatic biliary dilatation. Gallbladder/biliary tree: The patient is status post cholecystectomy. The common bile duct measures up to 10 mm in diameter, likely within normal limits for a patient status post cholecystectomy. No intraluminal filling defects are identified to suggest choledocholithiasis. Spleen: The spleen is unremarkable. Visualized bowel: There is an enhancing soft tissue mass measuring 5.3 x 3.9 x 4.6 cm which is contiguous with the greater curvature of the gastric body. No fat plane is seen between the mass and the stomach as well as between the mass and the pancreatic tail. There is greater contact with the wall of the stomach and the pancreatic tail favoring gastric carcinoma.. Pancreas: There is mild dilatation of the pancreatic duct. The pancreas is otherwise unremarkable. There is no enhancing pancreatic mass. Adrenals: The adrenal glands are unremarkable. Kidneys: The kidneys are unremarkable. There is no hydronephrosis. Lymph nodes: Numerous enlarged lymph nodes are identified including a right paracardiac node measuring 1.4 cm and a left pericardiac node measuring 3.0 x 1.5 cm. There are celiac axis nodes measuring up to 2.1 cm, paracaval nodes measuring up to 1.7 cm, and para-aortic nodes measuring up to 2.6 cm. There are multiple omental nodules measuring up to 10 mm in size, as well as infiltration of the omental fat to the left of midline compatible with omental caking. Fluid: There is no ascites in the upper abdomen. Visualized bones: The visualized bones demonstrate normal marrow signal intensity. MR/MR abdomen wo/w con IMPRESSION: 1. 5.3 x 3.9 x 4.6 cm mass contiguous with the greater curvature of the gastric body and the pancreatic tail. Greater contact with the stomach, and the pattern of metastatic disease and omental caking favors gastric carcinoma. 2. Diffuse abdominal and paracardiac lymphadenopathy as described. 3. Omental caking and soft tissue nodules consistent with metastatic disease. UPPER GI WITH BARIUM SWALLOW FINDINGS: Following oral administration of thick barium and effervescent granules and upright view in different projections there is normal propagation bolus from the oral cavity through the pharynx, esophagus into stomach without any of obstruction, narrowing or stricture. No extrinsic compression seen. Following placing patient supine and prone lying the course, caliber and peristalsis of the stomach, duodenal bulb and the sweep is normal.. There is mild irregularity in the first segment of duodenum beyond the bulb suspicious for low-grade duodenitis on some of the images.. Incidental finding of mild gastroesophageal reflux without hiatal hernia. FLUOROSCOPY TIME: 1 minute 42 seconds DOSE AREA PRODUCT: 1178 uGy-m2 (microgray-meter squared) FL/FL upper GI w air w Ba Swallow IMPRESSION: Mild gastroesophageal reflux. Mildly irregular appearing mucosal question segment of duodenum impression duodenitis but no focal ulceration seen. Assessment & Plan Assessment & Plan (1) Gastric mass: Code(s): K31.89 - Other diseases of stomach and duodenum Category: Medical (2) Constipation: Code(s): K59.00 - Constipation, unspecified Qualifiers: Constipation type: slow transit constipation Qualified Code(s): K59.01 - Slow transit constipation Plan Patient will continue her regimen for bowel. Increase fluid intake and activity to promote better bowel motility. Patient has appointment for PET scan and appointment with GI at [facility] for esophageal ultrasound with biopsy of the gastric mass. She has follow-up with her oncologist next week. Patient will call our office if she will have any GI concerning symptoms. Both patient and her daughter are agreeable to plan of care and verbalizes understanding of instructions. They were given the opportunity to ask questions and all questions answered. Thank you for allowing me to participate in her care Coding Level of Care Code Est Pt Level 3 (26369) Diagnoses Gastric mass K31.89 Slow transit constipation K59.01 Constipation type: slow transit constipation Time Spent (min) 30 Comment 20 minutes spent with patient and additional 10 minutes spent reviewing her records
[2024-09-21 13:47] VITALS: BP 136/42; PULSE 64; O2SAT 96; BMI 24.1
== END 2024-09-21 14:11 | disposition home or self-care (01) ==
LOC: HO.HGI 13:37
PROVIDERS: PCP General Practice; Visit Provider Nurse Practitioner Family
DX: K31.89 Other diseases of stomach and duodenum (principal); K59.01 Slow transit constipation
CPT/HCPCS: 99213

== ENCOUNTER 2024-09-21 13:37 | Outpatient (REF) | payer MEDICARE, SELFPAY ==
[2024-09-21 15:00] LABS: Hematocrit 31.8 % (37.0-47.0); Hemoglobin 10.0 g/dl (12.0-16.0); Mean Corpuscular HGB Conc 31.4 g/dl (31.0-35.0); Mean Corpuscular Hemoglobin 28.7 pg (27.0-33.0); Mean Corpuscular Volume 91.1 fL (80.0-98.0); NRBC Abs Auto 0.000 X10*3/uL (0.0-0.012); NRBC Pct Auto 0.0 /100WBC (0.0-0.2); Platelet Count 152 X10*3/uL (160-400); Red Blood Count 3.49 X10*6/uL (4.20-5.50); White Blood Count 6.2 X10*3/uL (4.8-10.8)
[2024-09-21 15:17] LABS: Lipase 44 U/L (8-78)
[2024-09-21 15:29] LABS: Carcinoembryonic Antigen 2.70 ng/mL
== END 2024-09-21 13:38 | disposition home or self-care (01) ==
LOC: HO.LAB 13:37
PROVIDERS: Visit Provider Nurse Practitioner Family
DX: K31.89 Other diseases of stomach and duodenum (principal); K59.01 Slow transit constipation; D49.0 Neoplasm of unspecified behavior of digestive system; K21.9 Gastro-esophageal reflux disease without esophagitis; R10.9 Unspecified abdominal pain
CPT/HCPCS: 36415; 82378; 83690; 85027; 86301; 99212

== ENCOUNTER → 2024-09-28 14:20 | Outpatient (BNV) | payer MEDICARE, SELFPAY | PROVIDERS: PCP General Practice; Visit Provider Internal Medicine Medical Oncology | DX: K31.89 Other diseases of stomach and duodenum (principal) | CPT/HCPCS: 99204; 99213 ==

== ENCOUNTER → 2024-10-04 09:51 | Outpatient (REF) | payer MEDICARE, SELFPAY ==
--- NOTE | 2024-10-04 09:54 | CA_ITS ---
Transthoracic Echocardiogram Patient (Last, First, Middle): Bhumi Poole, Gender: Female Date of : 1940 Age: 84 Procedure Date: 10/04/2024 Procedure Type: Transthoracic Echocardiogram Location: OP Height: 154. cm Weight: 57.61 kg BSA: 1.55 m2 Heart Rate: bpm BP: 140 / 70 mmHg Process Helper: PIERRE Referring MD: Preet Rebollar MD Symptoms: Z95.2 - Presence of prosthetic heart valve Study Quality: Fair ECG Rhythm: Sinus Conclusions: - The left ventricular systolic function is normal. The calculated ejection fraction is 64% by biplane method. - A bioprosthetic aortic valve is present. The prosthetic aortic valve appears to be functioning normally. - There is moderate mitral annular calcification. Findings Left Ventricle Normal left ventricular cavity size. There is normal left ventricular wall thickness. The left ventricular systolic function is normal. The calculated ejection fraction is 64% by biplane method. There is no evidence of regional wall motion abnormalities. Evidence suggests grade I (mild) diastolic dysfunction. Right Ventricle Normal right ventricular cavity size and systolic function. Atria The left atrium is mildly dilated. The right atrium is normal in size. Aortic Valve A bioprosthetic aortic valve is present. The prosthetic aortic valve appears to be functioning normally. The mean gradient is 8 mmHg. There is no aortic valve regurgitation. Mitral Valve There is moderate mitral annular calcification. There is trace mitral valve regurgitation. There is no mitral valve stenosis. Pulmonic Valve There is trace pulmonic valve regurgitation. Tricuspid Valve There is mild tricuspid valve regurgitation. There is no evidence of pulmonary hypertension. Great Vessels The asc aorta and aortic arch are normal in size. Venous The inferior vena cava is normal in size and collapses greater than 50% with inspiration. Pericardium/Pleural There is no evidence of pericardial effusion. Prior Study Comparison Changes noted compared to prior study dated: 02/27/2024. s/p TAVR. Measurements 2D Linear Measurements IVSd: 0.89 0.6-0.9/0.6-1.0 cm LVIDd: 4.06 3.9-5.3/4.2-5.9 cm LVIDd Index: 2.62 2.4-3.2/2.2-3.1 cm/m2 LVIDs: 2.39 2.0-3.6 cm LVPWd: 1.02 0.7-1.1 cm LA Diam: 3.30 2.7-3.8/3.0-4.0 cm LAIDs Index: 2.13 1.5-2.3 cm/m2 LV Mass: 151.58 67-162/88-224 g LV Mass Index: 97.79 43-95/49-115 g/m2 LVOT Diam: 1.90 3.0+(-)1.3 cm 2D Systolic Function EF 4C: 62.60 >55% EF 2C: 65.50 >55% EF BiP: 63.80 >55% Mitral Valve MV VTI: 0.42 MV Pk Baljinder: 1.41 MV Mn Baljinder: 0.86 MV Pk Grad: 8.00 MV Mn Grad: 3.00 MV Pk E: 1.33 MV PK A: 1.38 MV Decel Time: 219.00 E/A: 1.00 E'Lateral: 4.79 E'Medial: 4.35 E/E' Med: 30.60 E/E' Lat: 27.80 PHT: 64.00 MVA PHT: 3.44 MVA Continuity: 1.73 Decel [place]: 6.07 Aortic Valve AoV Pk Baljinder: 1.92 AoV Mn Baljinder: 1.39 AoV VTI: 0.49 AoV Pk Grad: 15.00 Aov Mn Grad: 8.00 AUBRIE Cont.VTI: 1.47 LVOT LVOT Pk Baljinder: 0.97 LVOT Mn Baljinder: 0.72 LVOT VTI: 0.25 LVOT Pk Grad: 4.00 LVOT Mn Grad: 2.00 LVOT Diam: 1.90 LVOT Area: 2.84 Diastolic Function MV Pk E: 1.33 MV Pk A: 1.38 E/A: 1.00 E'Medial: 4.35 E/E' Med: 30.60 E' Laterial: 4.79 E/E' Lat: 27.80 Right Ventricle TAPSE (mm): 23.90 TVS' Baljinder: 10.30 Tricuspid Valve TR Pk Baljinder: 2.04 TR Pk Grad: 17.00 RA Press: 3.00 RVSP: 20.00 Great Vessels Aorta Sinus of Valsalva: 2.70 2.0-3.5 cm Ao Asc: 3.60 2.1-3.4 cm Ao Arch: 2.40 Pulmonary Valve PV Pk Baljinder: 0.86 Peak PV Grad: 3.00 Updated in Other Vendor System with Status of Final Moody Durán MD electronically signed on 10/06/2024 10:38:02 AM with status of Final
--- OUTSIDE RECORDS SUMMARY | 2024-10-04 10:26 | XMS_ITS | Clinical Summary ---
Author Organization [facility] Address [address] [place] [address] Phone Care Team Providers Care Business Applications Developer Name Role Phone Unavailable Primary Care Provider Unavailabl e Encounters Date Type Department Care Team Description 09/24/2024 1:12 PM EDT - 09/24/2024 11:59 PM EDT Hospital Encounter [facility] PET Scan [address] [place] [address] Gastric mass Discharge Disposition: Home or Self Care from Last 3 Months Social History Tobacco Use Types Packs/Day Years Used Date Smoking Tobacco: Never Assessed Comments Unknown Sex and Gender Information Value Date Recorded Sex Assigned at Not on file Legal Sex Female 10:46 AM EDT Gender Identity Not on file Sexual Orientation Not on file Plan of Treatment Health Maintenance Due Date Last Done Comments Diabetes: Annual GFR (Glomerular Filtration Rate) 1939 Diabetes: Annual Foot Exam 06/01/1949 Diabetes: Annual Retina Eye Exam 06/01/1949 DTaP,Tdap,and Td Vaccines (1 - Tdap) 06/01/1958 Pneumococcal Vaccine: 50+ Years (1 of 2 - PCV) 06/01/1958 Zoster Vaccines (1 of 2) 06/01/1958 RSV Immunization Adult Patients (1 - 1-dose 75+ series) 06/01/2014 COVID-19 Vaccine ( - 2023-2 5 season) 2023 12/26/2020, 05/28/2020, 04/30/2020 Depression Screening 03/03/2024 Cholesterol Screening (Lipid Panel) 09/24/2024 Diabetes: Annual Urine Albumin-Creatinine Ratio (uACR) 09/24/2024 Diabetes: Blood Sugar Contro l Test (HGBA1C) 09/24/2024 Falls Risk Assessment 09/24/2024 Hypertension/CHF/CAD Annual BMP Blood Test 09/24/2024 Medicare Annual Wellness Visit 09/24/2024 Osteoporosis Screening (Bone Density Screening) 09/24/2024 Social Influencers of Health Screening 09/24/2024 Influenza Vaccine (#1) 2024 HIB Vaccines Aged Out No longer eligi ble based on patient's age to complete this topic HPV Vaccines Aged Out No longer eligi ble based on patient's age to complete this topic Hepatitis A Vaccines Aged Out No long er eligible based on patient's age to complete this topic Hepatitis B Vaccines Aged Out No long er eligible based on patient's age to complete this topic IPV Vaccines Aged Out No longer eligi ble based on patient's age to complete this topic MMR Vaccines Aged Out No longer eligi ble based on patient's age to complete this topic Meningococcal ACWY Vaccine Aged Out N o longer eligible based on patient's age to complete this topic Meningococcal B Vaccine Aged Out No l onger eligible based on patient's age to complete this topic RSV Immunization Patients Under 20 months Aged Out No longer eligible b ased on patient's age to complete this topic Varicella Vaccines Aged Out No longer eligible based on patient's age to complete this topic Procedures Procedure Name Priority Date/Time Associated Diagnosis Comments PET CT SKULL TO MID THIGH INITIAL Routine 09/24/2024 3:45 PM EDT Gastric mass from Last 3 Months Results * PET CT Skull to Mid Thigh Initial (09/24/2024 3:45 PM EDT) Anatomical Region Laterality Modality Body Radiographic Jolie ging 09/27/2024 10:0 3 AM EDT Impressions 09/27/2024 11:06 AM EDT 1. FDG avid greater curvature mass which may represent superimposed gastric primary malignancy or lymphomatous disease. 2. FDG avid supraclavicular, thoracic, abdominal and pelvic lymphadenopathy suspicious for lymphomatous disease 3. FDG avid peritoneal, mesenteric and omental nodules with associated abnormal stranding suspicious for lymphomatous disease 4. Increased activity within the spleen suspicious for lymphomatous involvement 5. Abnormal bowel wall thickening as well as FDG activity within the transverse colon and the rectosigmoid junction which may represent postinfectious or postinflammatory process. Attention to this area can be made on follow-up imaging. Deauville 5X. X component is for #5 5-point Deauville Score Guajardo: 1. No uptake 2. Uptake less than or equal to mediastinal blood pool 3. Uptake > mediastinal blood pool but less than or equal to liver 4. Uptake moderately higher than liver 5. Uptake markedly higher than liver and/or new lesions X: New areas of uptake unlikely to be related to lymphoma Please note: The CT was acquired at a low radiation dose settings. The images are of nondiagnostic quality and used solely for purposes of attenuation correction and slice localization for the PET scan. If a diagnostic CT study is desired it must be ordered separately. -------- FINAL REPORT -------- Dictated By: Debbi Ley Dictated Date: 09/27/2024 10:03 ET Assigned Physician: Debbi Ley Reviewed and Electronically Signed By: Debbi Ley Signed Date: 09/27/2024 11:06 ET Workstation ID: [id number] Transcribed By: Self Edit Transcribed Date: 09/27/2024 10:09 ET Narrative 09/27/2024 11:06 AM EDT INDICATION: GASTRIC MASS. Peritoneal implants. History of follicular lymphoma. TECHNIQUE: FDG PET-CT imaging was performed from the skull bases through the thighs in a single acquisition with data set reconstructed in axial, coronal, and sagittal planes at the computer workstation with fused data from both the PET imaging study and attenuation correction CT. The CT portion of the examination was done strictly for attenuation correction and is not a true diagnostic CT examination. Enteric contrast was administered. DLP: 504 mGy-cm Radiopharmaceutical: 13.7 mCi of F-18 FDG IV. Blood glucose: 86 mg/dl. COMPARISON: Correlation is made with outside MRI of the abdomen dated August 2024. FINDINGS:: SUV Max: Mediastinal Blood Pool: 2.7 Liver: 3 HEAD AND NECK: FDG avid supraclavicular lymphadenopathy SUV max 8.4 on the left and 4.8 on the right. THORAX: FDG avid thoracic lymphadenopathy. For example, right upper paratracheal SUV max 7.9, paratracheal SUV max 8.2, prevascular SUV Max 6.4, AP window SUV Max 4.6, bilateral internal mammary measuring up to SUV Max 4.7, subcarinal SUV max 7.7, right hilar SUV max 3.9, right infrahilar SUV Max 4.1, paraesophageal 7.8 and pericardial SUV Max 8.3. FDG avid nodule along the left pericardial fat pad SUV max 7.2. ABDOMEN/PELVIS: FDG avid nodularity along the gastric fundus SUV max 6.9. Evaluation of upper abdominal chela activity is suboptimal due to superimposed activity within the pancreas. Within these confines, FDG avid gastrohepatic activity SUV max 9.6, josie hepatis SUV max 10.9, retroperitoneal SUV max 12.2, bilateral iliac lymphadenopathy measuring up to SUV Max 4.7, obturator lymph nodes measuring up to SUV Max 5.4 and bilateral external iliac lymph nodes measuring up to SUV Max 5.8 as well as bilateral inguinal lymph nodes measuring up to SUV Max 3.9 on the right. FDG avid peritoneal nodularity along the greater curvature of the stomach SUV max 9.2. FDG avid omental, peritoneal, mesenteric nodules with abnormal stranding measuring up to SUV Max 5.4. Increased FDG activity within the spleen SUV max 4.8. Abnormal bowel wall thickening of the rectosigmoid junction measuring up to SUV Max 7.5. Abnormal wall thickening of the transverse colon measuring up to SUV Max 5.9. Diverticulosis. Free fluid in the pelvic cul-de-sac. MUSCULOSKELETAL: No abnormal FDG activity. Procedure Note Debbi Ley MD - 09/27/2024 INDICATION: GASTRIC MASS. Peritoneal implants. History of follicularlymphoma. TECHNIQUE: FDG PET-CT imaging was performed from the skull bases throughthe thighs in a single acquisition with data set reconstructed in axial,coronal, and sagittal planes at the computer workstation with fused datafrom both the PET imaging study and attenuation correction CT. The CTportion of the examination was done strictly for attenuation correctionand is not a true diagnostic CT examination. Enteric contrast wasadministered. DLP: 504 mGy-cm Radiopharmaceutical: 13.7 mCi of F-18 FDG IV. Blood glucose: 86 mg/dl. COMPARISON: Correlation is made with outside MRI of the abdomen dated August2024. FINDINGS:: SUV Max: Mediastinal Blood Pool: 2.7 Liver: 3 HEAD AND NECK: FDG avid supraclavicular lymphadenopathy SUV max 8.4 on theleft and 4.8 on the right. THORAX: FDG avid thoracic lymphadenopathy. For example, right upperparatracheal SUV max 7.9, paratracheal SUV max 8.2, prevascular SUV Max6.4, AP window SUV Max 4.6, bilateral internal mammary measuring up to SUVMax 4.7, subcarinal SUV max 7.7, right hilar SUV max 3.9, right infrahilarSUV Max 4.1, paraesophageal 7.8 and pericardial SUV Max 8.3. FDG avid nodule along the left pericardial fat pad SUV max 7.2. ABDOMEN/PELVIS: FDG avid nodularity along the gastric fundus SUV max6.9. Evaluation of upper abdominal chela activity is suboptimal due tosuperimposed activity within the pancreas. Within these confines, FDGavid gastrohepatic activity SUV max 9.6, josie hepatis SUV max 10.9,retroperitoneal SUV max 12.2, bilateral iliac lymphadenopathy measuring upto SUV Max 4.7, obturator lymph nodes measuring up to SUV Max 5.4 andbilateral external iliac lymph nodes measuring up to SUV Max 5.8 as wellas bilateral inguinal lymph nodes measuring up to SUV Max 3.9 on theright. FDG avid peritoneal nodularity along the greater curvature of the stomachSUV max 9.2. FDG avid omental, peritoneal, mesenteric nodules withabnormal stranding measuring up to SUV Max 5.4. Increased FDG activity within the spleen SUV max 4.8. Abnormal bowel wall thickening of the rectosigmoid junction measuring upto SUV Max 7.5. Abnormal wall thickening of the transverse colonmeasuring up to SUV Max 5.9. Diverticulosis. Free fluid in the [id number]. MUSCULOSKELETAL: No abnormal FDG activity. IMPRESSION: 1. FDG avid greater curvature mass which may represent superimposedgastric primary malignancy or lymphomatous disease. 2. FDG avid supraclavicular, thoracic, abdominal and pelviclymphadenopathy suspicious for lymphomatous disease 3. FDG avid peritoneal, mesenteric and omental nodules with associatedabnormal stranding suspicious for lymphomatous disease 4. Increased activity within the spleen suspicious for lymphomatousinvolvement 5. Abnormal bowel wall thickening as well as FDG activity within thetransverse colon and the rectosigmoid junction which may representpostinfectious or postinflammatory process. Attention to this area can bemade on follow-up imaging. Deauville 5X. X component is for #5 5-point Deauville Score Guajardo: 1. No uptake 2. Uptake less than or equal to mediastinal blood pool 3. Uptake > mediastinal blood pool but less than or equal to liver 4. Uptake moderately higher than liver 5. Uptake markedly higher than liver and/or new lesions X: New areas of uptake unlikely to be related to lymphoma Please note: The CT was acquired at a low radiation dose settings. The images are ofnondiagnostic quality and used solely for purposes of attenuationcorrection and slice localization for the PET scan. If a diagnostic CTstudy is desired it must be ordered separately. -------- FINAL REPORT -------- Dictated By: Debbi Ley Dictated Date: 09/27/2024 10:03 ET Assigned Physician: Debbi Ley Reviewed and Electronically Signed By: Debbi Ley Signed Date: 09/27/2024 11:06 ET Workstation ID: [id number] Transcribed By: Self Edit Transcribed Date: 09/27/2024 10:09 ET Zachery Fields MD IM NM PROCEDURES Final Result from Last 3 Months Insurance [employer]
== END ==
LOC: HO.CARD 09:51
PROVIDERS: PCP General Practice; Visit Provider Internal Medicine Cardiovascular Disease
DX: Z95.2 Presence of prosthetic heart valve (principal)
CPT/HCPCS: 93306

== ENCOUNTER → 2024-10-04 09:54 | Outpatient (BNV) | payer MEDICARE, SELFPAY | PROVIDERS: PCP General Practice; Visit Provider Internal Medicine | DX: I34.81 Nonrheumatic mitral (valve) annulus calcification (principal); Z95.2 Presence of prosthetic heart valve | CPT/HCPCS: 93306 ==

== ENCOUNTER 2024-10-18 13:55 | Outpatient (AMB) | payer MEDICARE, SELFPAY ==
[2024-10-18 13:57] VITALS: BP 151/60; PULSE 65; BMI 24.6
--- NOTE | 2024-10-18 13:57 | MHC.OFFVIS ---
Vital Signs 10/18/24 13:57 Height 5 ft 1 in Weight 130 lb BMI 24.6 BP 151/60 H Blood Pressure Location Rt brachial Position Sitting Pulse 65 Intake Visit Reasons: 3 weeks , F/U Barium Swallow Intake Note: Bhumi returns in follow up of barium swallow. CC: Patient reports that she is doing well. Pediatrics Hospitalist Required: Yes Pediatrics Hospitalist Language: Behavioral Intervention Specialist Services: Pediatrics Hospitalist Present Pediatrics Hospitalist Name: Silvano GI LM Allergies No Known Allergies Allergy (Verified 10/18/24 13:58) HPI HPI 3 weeks , F/U Barium Swallow: Details: LAST VISIT: Gastric mass Constipation Plan Patient will continue her regimen for bowel. Increase fluid intake and activity to promote better bowel motility. Patient has appointment for PET scan and appointment with GI at [facility] for esophageal ultrasound with biopsy of the gastric mass. She has follow-up with her oncologist next week. Patient will call our office if she will have any GI concerning symptoms. Both patient and her daughter are agreeable to plan of care and verbalizes understanding of instructions. They were given the opportunity to ask questions and all questions answered. ? TODAY'S VISIT Patient is here today for follow-up and discuss barium swallow results. Patient was found to have a mild reflux. Patient reports that she is not having any symptoms. Denies any dyspepsia, dysphagia or odynophagia. Denies any acid reflux. Reports that Senokot is not working for her. Patient tried docusate sodium also not helping. Patient reports that she has to strain to have a bowel movement. Patient denies melena, hematochezia, unintentional weight loss or ribbon like stools. Patient reports to have fair appetite. Usually eats 2 meals a day. Patient denies any nausea or vomiting. Patient saw GI at [facility] for endoscopic biopsy stomach mass. Patient is going to see her oncologist next week. Results are not available yet. [facility] Medical History Type 2 diabetes mellitus with unspecified complications Lymphoma Essential hypertension Cough Post covid-19 condition, unspecified Surgical History S/P TAVR (transcatheter aortic valve replacement) (~08/26/24) S/P cardiac cath Family History Father No problems noted. Mother No problems noted. Social History Household Members: Family Housing: House Are you a primary home care consultant to a significant other at home: No Do you presently have visiting nurse or other home services: No Comment: social/rare Patient Tobacco Use Status: Former Tobacco user Second Hand Smoke Exposure: No service: No Current occupational status: retired and disabled Review of Systems Const Denies weight gain and Reports weight loss ENT Reports no additional complaints, Denies dysphagia and Denies odynophagia Card Reports no additional complaints Resp Reports no additional complaints GI Denies abdominal pain, Denies belching, Denies melena, Denies bloating, Denies change in bowel habits, Denies dysphagia, Denies excessive flatus, Denies dyspepsia, Denies heartburn, Denies diarrhea, Denies loose stools, Denies nausea, Denies odynophagia, Denies vomiting and Reports other (Loss of appetite) Reports no additional complaints Musc Reports no additional complaints Neuro Reports no additional complaints Psych Reports no additional complaints Endo Reports no additional complaints Physical Exam Vital Signs: Last Vital Signs Pulse 65 10/18/24 13:57 BP 151/60 H 10/18/24 13:57 BMI result Body Mass Index 24.6 Const General: healthy appearing, no acute distress and well developed Nutritional Appearance: well nourished Orientation/consciousness: patient oriented x3 Resp Effort & Inspection: normal respiratory effort, able to speak in complete sentences, no tracheal deviation and symmetric chest movement Auscultation: clear to auscultation bilaterally GI Inspection: Yes normal to inspection and No distended Palpation (GI): Soft to palpation, not firm, nontender and No hepatosplenomegaly present Auscultation: normal bowel sounds General: Yes no CVA tenderness Back/Spine/Pelvis Back: no CVA tenderness Skin General skin exam: elasticity normal, turgor normal and dry skin Neuro General: patient oriented x3 Psych Appearance: grossly normal Mental Status: mental status grossly normal Results Reviewed Results Reviewed: UPPER GI SERIES WITH BARIUM SWALLOW IMPRESSION: Mild gastroesophageal reflux. Mildly irregular appearing mucosal question segment of duodenum impression duodenitis but no focal ulceration seen. Assessment & Plan Assessment & Plan (1) Gastric mass: Code(s): K31.89 - Other diseases of stomach and duodenum Category: Medical (2) Constipation: Code(s): K59.00 - Constipation, unspecified Qualifiers: Constipation type: slow transit constipation Qualified Code(s): K59.01 - Slow transit constipation Plan Patient can start taking Dulcolax daily. Increase fluid intake and activity to promote better bowel motility. Patient was encouraged to avoid dietary triggers in late night snacking. Staying upright for minimum 3 hours after meals discussed with patient. Follow-up with oncology for any treatment. In our office patient will follow-up as needed. Both patient and her daughter are agreeable to plan of care and verbalizes understanding of instructions. He was given the opportunity to ask questions and all questions answered. Thank you for allowing me to participate in her care Medications: New bisacodyl (Dulcolax (bisacodyl)) 10 mg (2 x 5 mg) PO BEDTIME 180 tabs 4RF Coding Level of Care Code Est Pt Level 3 (81853) Diagnoses Gastric mass K31.89 Slow transit constipation K59.01 Constipation type: slow transit constipation Time Spent (min) 25 Comment 15 minutes spent with patient and additional 10 minutes spent reviewing her records
--- OUTSIDE RECORDS SUMMARY | 2024-10-18 14:45 | XMS_ITS | Clinical Summary ---
Author Organization [facility] Address [address] [place] [address] Phone Care Team Providers Care Maintenance Representative Name Role Phone Unavailable Primary Care Provider Unavailabl e Encounters Date Type Department Care Team Description 09/24/2024 1:12 PM EDT - 09/24/2024 11:59 PM EDT Hospital Encounter [facility] PET Scan [address] [place] [address] Gastric mass Discharge Disposition: Home [...] Signed Date: 09/27/2024 11:06 ET Workstation ID: [id number] Transcribed By: Self Edit Transcribed Date: 09/27/2024 [...] Max 5.9. Diverticulosis. Free fluid in the [id number]-cb-[id number]. MUSCULOSKELETAL: No abnormal FDG activity. IMPRESSION: 1. [...] Signed Date: 09/27/2024 11:06 ET Workstation ID: [id number] Transcribed By: Self Edit Transcribed Date: 09/27/2024 10:09 ET Zachery Fields MD IM NM PROCEDURES Final Result from Last 3 Months Insurance [employer] [place] [address]
== END 2024-10-18 17:05 | disposition home or self-care (01) ==
LOC: HO.HGI 13:56
PROVIDERS: PCP General Practice; Visit Provider Nurse Practitioner Family
DX: K31.89 Other diseases of stomach and duodenum (principal); K59.01 Slow transit constipation
CPT/HCPCS: 99213

== ENCOUNTER → 2024-10-18 13:55 | Outpatient (BNVA) | payer MEDICARE, SELFPAY | PROVIDERS: PCP General Practice; Visit Provider Nurse Practitioner Family | DX: K31.89 Other diseases of stomach and duodenum (principal); K59.01 Slow transit constipation | CPT/HCPCS: 99212 ==

== ENCOUNTER 2024-10-20 14:53 | Outpatient (AMB) | payer MEDICARE, SELFPAY ==
[2024-10-20 15:43] VITALS: BP 110/60; PULSE 63; BMI 24.2
--- NOTE | 2024-10-20 15:43 | MHC.OFFVIS ---
Vital Signs 10/20/24 15:43 Height 5 ft 1 in Weight 128 lb 4.944 oz BMI 24.2 BP 110/60 Blood Pressure Location Lt brachial Position Sitting Pulse 63 Pulse Source Monitor Intake Visit Reasons: TAVR f/up-08/26 Intake Note: TAVR f/up 08/26 Scissors Sharpener Required: Yes Scissors Sharpener Language: Efficiency Engineer Name: [email or web address] Accompanied by: Daughter Allergies No Known Allergies Allergy (Verified 10/18/24 13:58) Medication List - Last Reconciled 10/20/24 by Preet Rebollar MD aspirin 81 mg PO DAILY bisacodyl (Dulcolax (bisacodyl)) 10 mg (2 x 5 mg) PO BEDTIME blood sugar diagnostic (What the Trenduch Ultra Test strips) As directed fluticasone propionate 50 mcg/actuation 1 spray intranasal DAILY guaifenesin ER 600 mg PO BID loratadine 10 mg PO QAM losartan 100 mg PO DAILY metformin 500 mg PO DAILY metoprolol succinate ER 50 mg PO DAILY HPI Comments Details: 84 year female who is here for severe aortic valve stenosis and discussion about transcatheter aortic valve replacement. She is a Buddhist. She has background of lymphoma. She had echocardiography done recently which raise concern for severe low-flow low gradient aortic valve stenosis. Aortic valve area was 0.57 centimeters sq, stroke volume index 27, mean gradient 19 mm Hg. Aortic valve was severely calcified. She is not active in her day-to-day life but denies any symptoms with her usual activities. No chest discomfort, shortness of breath or syncope. Occasionally she gets dizzy and loses her balance but never blacked out or passed out before. No bleeding issues. EKGs reviewed showing sinus rhythm with poor R-wave progression and nonspecific ST changes, QTC 419 milliseconds. 10/20/2024: She is here for a post TAVR follow-up. She is saying that she is feeling good. Denying any chest discomfort shortness of breath. She was found to have a stomach mass on MRI and was referred to [facility] for biopsy. She is saying that she is waiting to see Oncology. The daughter said that she has been told that the mass is cancerous. 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 Mother No problems noted. Social History Household Members: Family Housing: House Are you a primary housekeeper child care to a significant other at home: No Do you presently have visiting nurse or other home services: No Comment: social/rare Patient Tobacco Use Status: Former Tobacco user Second Hand Smoke Exposure: No service: No Current occupational status: retired and disabled Review of Systems Const Denies chills, Denies fatigue, Denies fever(s), Denies frequent falls, Denies weakness, Denies weight gain and Denies weight loss ENT Denies dizziness Card Denies chest pain, Denies leg edema, Denies lightheadedness, Denies palpitations, Denies dyspnea and Denies dyspnea on exertion Resp Denies cough, Denies dyspnea and Denies dyspnea on exertion GI Denies hematochezia Musc Denies abnormal gait, Denies muscle weakness, Denies numbness, Denies radiating pain into limb and Denies tingling Neuro Denies abnormal gait, Denies dizziness, Denies frequent falls, Denies numbness, Denies tingling and Denies weakness Endo Denies fatigue and Denies palpitations Physical Exam Vital Signs: Last Vital Signs Pulse 63 10/20/24 15:43 BP 110/60 10/20/24 15:43 BMI result Body Mass Index 24.2 GENERAL APPEARANCE: in no acute distress, pleasant. NECK: no carotid bruit, no jugular venous distention. SKIN: no suspicious lesions, warm and dry. HEART: Soft murmur gallop or rub, regular rate and rhythm. LUNGS: clear to auscultation bilaterally. ABDOMEN: soft, nontender. EXTREMITIES: no edema. PERIPHERAL PULSES: equal. NEUROLOGIC: No gross deficits, AAO X 3 Office Procedures EKG Details: Sinus rhythm 63 beats per minute, rightward axis, low voltage, poor R-wave progression and can not rule out anterior infarct, QTC 427 milliseconds. [id number], Complete Assessment & Plan Assessment & Plan (1) Essential hypertension: Code(s): I10 - Essential (primary) hypertension Category: Medical (2) S/P TAVR (transcatheter aortic valve replacement): Onset Date: ~08/26/24 Code(s): Z95.2 - Presence of prosthetic heart valve Category: Surgical Plan [age] year female who is here for follow-up. She underwent transcatheter aortic valve replacement. She is here for follow-up and has been doing well from cardiovascular point of view. No chest discomfort or shortness of breath. She has been found to have a stomach mass on MRI. Daughter has been told that this is cancer but exact details currently are not known. She is a Buddhist and will not accept any blood transfusions. Unsure about whether she will be a good candidate for chemotherapy or not. Clinically stable from cardiovascular point of view. Can follow up with us in few months. Thank you for allowing me to participate in the care of your patient. Please feel free to contact me if you have any questions. Coding Level of Care Code Est Pt Level 4 (94895) Diagnoses Essential hypertension I10 S/P TAVR (transcatheter aortic valve replacement) Z95.2 CPT Codes EKG - CPT: 07972-[id number], Complete ([id number])
--- OUTSIDE RECORDS SUMMARY | 2024-10-20 15:51 | XMS_ITS | Clinical Summary ---
Author Organization [facility] Address [address] [place] [address] Phone Care Team Providers Care Emission Technician Name Role Phone Unavailable Primary Care Provider Unavailabl e Encounters Date Type Department Care Team Description 09/24/2024 1:12 PM EDT - 09/24/2024 11:59 PM EDT Hospital Encounter [facility] PET Scan [address] [place] [address] Gastric mass Discharge Disposition: Home [...] Signed Date: 09/27/2024 11:06 ET Workstation ID: [id number] Transcribed By: Self Edit Transcribed Date: 09/27/2024 [...] Max 5.9. Diverticulosis. Free fluid in the fliqhkhuo-da-efz. MUSCULOSKELETAL: No abnormal FDG activity. IMPRESSION: 1. [...] Signed Date: 09/27/2024 11:06 ET Workstation ID: [id number] Transcribed By: Self Edit Transcribed Date: 09/27/2024 10:09 ET Zachery Fields MD IM NM PROCEDURES Final Result from Last 3 Months Insurance [employer] MEDICARE
== END 2024-10-20 16:28 | disposition home or self-care (01) ==
LOC: HO.HCS 14:53
PROVIDERS: PCP General Practice; Visit Provider Internal Medicine Cardiovascular Disease
DX: I10 Essential (primary) hypertension (principal); Z95.2 Presence of prosthetic heart valve
CPT/HCPCS: 93010; 99214

== ENCOUNTER → 2024-10-20 14:53 | Outpatient (BNVA) | payer MEDICARE, SELFPAY | PROVIDERS: PCP General Practice; Visit Provider Internal Medicine Cardiovascular Disease | DX: I10 Essential (primary) hypertension (principal); R94.31 Abnormal electrocardiogram [ECG] [EKG]; Z95.2 Presence of prosthetic heart valve | CPT/HCPCS: 93005; 99212 ==

== ENCOUNTER 2025-02-09 13:41 | Outpatient (AMB) | payer MEDICARE, SELFPAY ==
[2025-02-09 14:00] VITALS: BP 120/56; PULSE 108; BMI 23.8
--- NOTE | 2025-02-09 14:00 | A.OFFVIS_ITS ---
Vital Signs 02/09/25 14:00 Height 5 ft 1 in Weight 126 lb 1.671 oz BMI 23.8 BP 120/56 L Blood Pressure Location Lt brachial Position Sitting Pulse 108 H Pulse Source Monitor Intake Visit Reasons: 4 mth f/up Intake Note: 4 mth f/up Asphalt Plant Laborer Required: Yes Asphalt Plant Laborer Language: Distance Education Coordinator Name: sage/ salvadorean Accompanied by: Daughter Allergies No Known Allergies Allergy (Verified 10/25/24 11:21) Medication List - Last Reconciled 02/09/25 by Preet Rebollar MD acyclovir 400 mg PO BID aspirin 81 mg PO DAILY bisacodyl (Dulcolax (bisacodyl)) 10 mg (2 x 5 mg) PO BEDTIME blood sugar diagnostic (Scalado Ultra Test strips) As directed fluticasone propionate 50 mcg/actuation 1 spray intranasal DAILY guaifenesin ER 600 mg PO BID loratadine 10 mg PO QAM losartan 100 mg PO DAILY metformin 500 mg PO DAILY metoprolol succinate ER 50 mg PO DAILY ondansetron 8 mg PO Q8H sulfamethoxazole-trimethoprim 800-160 mg 1 tab PO Q12H HPI Comments Details: 84 year female who is here for severe aortic valve stenosis and discussion about transcatheter aortic valve replacement. She is a Christianity. She has background of lymphoma. She had echocardiography done recently which raise concern for severe low-flow low gradient aortic valve stenosis. Aortic valve area was 0.57 centimeters sq, stroke volume index 27, mean gradient 19 mm Hg. Aortic valve was severely calcified. She is not active in her day-to-day life but denies any symptoms with her usual activities. No chest discomfort, shortness of breath or syncope. Occasionally she gets dizzy and loses her balance but never blacked out or passed out before. No bleeding issues. EKGs reviewed showing sinus rhythm with poor R-wave progression and nonspecific ST changes, QTC 419 milliseconds. 10/20/2024: She is here for a post TAVR follow-up. She is saying that she is feeling good. Denying any chest discomfort shortness of breath. She was found to have a stomach mass on MRI and was referred to [facility] for biopsy. She is saying that she is waiting to see Oncology. The daughter said that she has been told that the mass is cancerous. 02/09/2025: She is here for follow-up. 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 The patient had history of follicular lymphoma and was treated in 2021. She is seeing Oncology and is on chemotherapy. Overall she has been doing fine. Denying any chest discomfort shortness of breath. She is taking baby aspirin and tolerating it so far. 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 Mother No problems noted. Social History Household Members: Family Housing: House Are you a primary personal care attendant to a significant other at home: No Do you presently have visiting nurse or other home services: No Comment: social/rare Patient Tobacco Use Status: Former Tobacco user Second Hand Smoke Exposure: No service: No Current occupational status: retired and disabled Review of Systems Const Denies chills, Denies fatigue, Denies fever(s), Denies frequent falls, Denies weakness, Denies weight gain and Denies weight loss ENT Denies dizziness Card Denies chest pain, Denies leg edema, Denies lightheadedness, Denies palpitations, Denies dyspnea and Denies dyspnea on exertion Resp Denies cough, Denies dyspnea and Denies dyspnea on exertion GI Denies hematochezia Musc Denies abnormal gait, Denies muscle weakness, Denies numbness, Denies radiating pain into limb and Denies tingling Neuro Denies abnormal gait, Denies dizziness, Denies frequent falls, Denies numbness, Denies tingling and Denies weakness Endo Denies fatigue and Denies palpitations Physical Exam Vital Signs: Last Vital Signs BP 120/56 L 02/09/25 14:00 BMI result Body Mass Index 23.8 GENERAL APPEARANCE: in no acute distress, pleasant. NECK: no carotid bruit, no jugular venous distention. SKIN: no suspicious lesions, warm and dry. HEART: No murmur, regular rate and rhythm. Tachycardic. LUNGS: clear to auscultation bilaterally. ABDOMEN: soft, nontender. EXTREMITIES: no edema. PERIPHERAL PULSES: equal. NEUROLOGIC: No gross deficits, AAO X 3 Office Procedures EKG Details: Sinus tachycardia 108 beats per minute, normal axis, here T-wave changes, low voltage, poor R-wave progression and can not rule out anterior infarct, QTC 466 milliseconds. 20380-[id number], Complete Assessment & Plan Assessment & Plan (1) Essential hypertension: Code(s): I10 - Essential (primary) hypertension Category: Medical (2) S/P TAVR (transcatheter aortic valve replacement): Onset Date: ~08/26/24 Code(s): Z95.2 - Presence of prosthetic heart valve Category: Surgical Plan [age] year female who is here for follow-up. She underwent transcatheter aortic valve replacement. She unfortunately had recurrence of follicular lymphoma and is on chemotherapy. She is tachycardic which is not unusual after chemo. Overall she has been doing well. She is on baby aspirin and it should be continued as long as she can tolerate it. If any concerns for bleeding or GI upset then aspirin can be held. She is following closely with oncology. Follow up in 4 months. Thank you for allowing me to participate in the care of your patient. Please feel free to contact me if you have any questions. Coding Level of Care Code Est Pt Level 4 (26992) Diagnoses Essential hypertension I10 S/P TAVR (transcatheter aortic valve replacement) Z95.2 CPT Codes EKG - CPT: 55214-Gkrcophvmwiywtipb, Complete ([id number])
--- OUTSIDE RECORDS SUMMARY | 2025-02-09 21:15 | XMS_ITS | Clinical Summary ---
Author Organization [facility] Address [address] [place] [address] Phone Care Team Providers Care Chute Tapper Name Role Phone Unavailable Primary Care Provider Unavailabl e Social History Tobacco Use Types Packs/Day Years [...] Patients (1 - 1-dose 75+ series) 06/01/2014 Depression Screening 03/03/2024 Cholesterol Screening (Lipid Panel) 09/24/2024 Diabetes: Annual Urine Albumin-Creatinine Ratio (uACR) 09/24/2024 Diabetes: Blood Sugar Contro l Test (HGBA1C) 09/24/2024 Falls Risk Assessment 09/24/2024 Hypertension/CHF/CAD Annual BMP Blood Test 09/24/2024 Medicare Annual Wellness Visit 09/24/2024 Osteoporosis Screening (Bone Density Screening) 09/24/2024 Social Influencers of Health Screening 09/24/2024 COVID-19 Vaccine (2024-2 6 season) 2024 12/26/2020, 05/28/2020, 04/30/2020 Influenza Vaccine (#1) 2024 HIB Vaccines Aged [...] on patient's age to complete this topic Insurance [employer] MEDICARE
== END 2025-02-09 14:24 | disposition home or self-care (01) ==
LOC: HO.HCS 13:42
PROVIDERS: PCP General Practice; Visit Provider Internal Medicine Cardiovascular Disease
DX: I10 Essential (primary) hypertension (principal); Z95.2 Presence of prosthetic heart valve
CPT/HCPCS: 93010; 99214

== ENCOUNTER → 2025-02-09 13:41 | Outpatient (BNVA) | payer MEDICARE, SELFPAY | PROVIDERS: PCP General Practice; Visit Provider Internal Medicine Cardiovascular Disease | DX: I10 Essential (primary) hypertension (principal); Z95.0 Presence of cardiac pacemaker | CPT/HCPCS: 93005; 99212 ==

== ENCOUNTER 2025-02-17 09:40 | Outpatient (REF) | payer MEDICARE, SELFPAY ==
--- NOTE | ~2025-02-17 | XR_ITS ---
EXAMINATION: XR CHEST CLINICAL INFORMATION: congested cough, on chemotherapy COMPARISON: December 19, 2022 TECHNIQUE: 2 views of the chest were obtained. FINDINGS: Prosthesis related to TAVR is new since the prior. Heart size is within normal limits. Lungs are clear and well expanded. There is no pleural effusion. There is no pneumothorax. Mild degenerative changes are present in the midthoracic spine. XR/XR chest 2V IMPRESSION: No acute disease. TAVR Electronically signed by: Macario Darling MD 02/17/2025 10:13 AM TON MARSH
== END 2025-02-17 09:41 | disposition home or self-care (01) ==
LOC: HO.XRAY 09:40
PROVIDERS: Visit Provider Nurse Practitioner Family
DX: R05.9 Cough, unspecified (principal)
CPT/HCPCS: 71046

== ENCOUNTER → 2025-02-17 09:51 | Outpatient (BNV) | payer MEDICARE, SELFPAY | PROVIDERS: Visit Provider Radiology Diagnostic Radiology | DX: R05.9 Cough, unspecified (principal); Z95.2 Presence of prosthetic heart valve | CPT/HCPCS: 71046 ==

== ENCOUNTER 2025-03-01 13:24 | Outpatient (REF) | payer MEDICARE, SELFPAY ==
--- OUTSIDE RECORDS SUMMARY | 2025-03-01 17:18 | XMS_ITS | Data Portability ---
Author Organization [facility], [email or web address] Address [address] [place] [address] Care Team Providers Care Coppersmith Helper Name Role Phone JERRELLWILMA Primary Care Provider HIM CCA OTHER Unavailable OTHER Assessment Encounter Date Assessment Date Assessment [...] quality. She is not on paxlovid. VSS. Head Housekeeper on site reports that she appears well, [...] assessment and plan as documented by the laundry manager. I provided real time medical direction for this encounter and was immediately available to provide additional phone based assistance as needed. History as noted by laundry manager. Pt with history of lymphoma, DM and [...] None recorded. Lab urinalysis, dipstick [email or web address], [address] 3 13:14:02 glucose, fingerstick , blood [email or web address], [address] 3 13:09:09 Referral None recorded. Procedures None [...] Leukocytes neg Not Available Main - [facility] [address] [place] [address], [phone] 11/06/2022 13:13:47 11/07/19 23 11/06/2022 urina lysis , dipst ick Nitrite negati ve Not Available Main - Inst [address], [address] 11/06/2022 13:13:47 11/07/19 23 11/06/2022 urina lysis , dipst ick Protein neg Not Available Main - Ins [address], [address] 11/06/2022 13:13:47 11/07/19 23 11/06/2022 urina lysis , dipst ick Blood neg Not Available Main - Ins [address], [phone] 11/06/2022 13:13:47 11/07/19 23 11/06/2022 urina lysis , dipst ick Ketone neg Not Available Main - Ins [address], [phone] 11/06/2022 13:13:47 11/07/19 23 11/06/2022 urina lysis , dipst ick Glucose neg Not Available Main - Ins [address], [phone] 11/06/2022 13:13:47 11/07/19 23 11/06/2022 gluco se, finge rstic k, blood Blood Glucose: mg/dl 50 Not Available Main - [facility] [address] [place] [address], [phone] 11/06/2022 13:09:00 Result Notes None recorded. Medical [...] temperature Body weight Respiratory rate Oxygen saturation Heart rate Body weight Heart rate Body temperature Respiratory rate Oxygen saturation Systolic And Diastolic Systolic And Diastolic Provider Name and Address Organization Details Last Updated DateTime 3 97.8 [degF] 76717.2 24 g 18 /min 99 % 72 /min 07079.2 24 g 72 /min 97.8 [degF] 18 /min 99 % 154/64 mm[Hg] 154/64 mm[Hg] Not Available [facility] - production 3 15:20:23 Date Recorded Heart rate Oxygen saturation Body temperature Respiratory rate Body weight Body height Systolic And Diastolic Provider Name and Address Organization Details Last Updated DateTime 4 84 /min 99 % 97.6 [degF] 14 /min 18221.7 36 g 154.94 cm 137/81 mm[Hg] Not Available [employer] - production 4 10:09:32 Date Recorded Oxygen saturation Body temperature Body weight Body height Heart rate Respiratory rate Systolic And Diastolic Provider Name and Address Organization Details Last Updated DateTime 4 98 % 98.4 [degF] 52247 g 152.4 cm 90 /min 14 /min 124/80 mm[Hg] Not Available [employer] - production 4 20:55:20 Date Recorded Respiratory rate Heart rate Body temperature Oxygen saturation Systolic And Diastolic Provider Name and Address Organization Details Last Updated DateTime 3 18 /min 66 /min 97.7 [degF] 99 % 178/64 mm[Hg] Not Available [employer] - production 3 12:51:42 Social History None recorded. Functional Status None recorded. Mental Status None recorded. Family History Nothing Reported. Medical History No medical history recorded. Gynecological HistoryNo gynecological history recorded. Obstetrics History GPAL:G 0 P 0 0 0 0 Past Encounters Encounter ID Performer Location Encounter Start Date Encounter Closed Date Diagnosis/Indication Diagnosis SNOMED-CT Code Diagnosis ICD10 Code Diagnosis IMO Codes Diagnosis Note [id number] Maria Alejandra Parada MD Main - [address] [address] 04/26/2022 15:00:05 04/29/2022 09:43:15 Cough 26501567 R05.9 [id number] Daisy Butler MD [facility] - [address] [address] 11/06/2022 12:51:33 11/06/2022 23:26:09 Elderly fall [id number] R29.6 Evaluation in the field was performed by my laundry manager colleague, as noted above, I provided real-time [...] on blood thinners so no indication for SALES REPRESENTATIVE PRINTING PAPER imaging. Fall appears 2/2 orthostasi s, BP [...] of breath, cough, chest pain, fever. Hypoglycemia 059134720 E 16.2 On laundry manager eval FSG 50 but no symptoms of hypoglycem ia, normal mentation. Able to drink juice. instructed pt to hold glipizide and con't metformin until PCP follow up. Does not appear to contribute to fall but is additional risk factor. [id number] Siddhartha Noyola MD Main - [facility] [address] [place] [phone] 07/14/2023 10:09:30 07/14/2023 17:38:30 Cough [id number] R05.9 [id number] Boris Jaquez MD Main - [facility] [address] [place] [address] 07/16/2023 20:55:09 07/17/2023 22:05:28 Viral syndrome [id number] B34.9 Patient with some mild erythema to [...] Hooper Member ID Guarantor Name 07/14/2023 1 [facility] (MEDICARE REPLACEMENT/ADV ANTAGE - PPO) Bhumi Poole [id number] Bhumi Poole 07/14/2023 1 [facility] - DOS ON OR AFTER 2022 - DUAL ELIGIBLE - HALFWAY OPTIONS AND ONE CARE (MEDICARE REPLACEMENT/ADV ANTAGE - HMO) Bhumi Poole [id number] Bhumi Virgilio 07/14/2023 1 [facility] - DOS ON OR AFTER 2022 - MEDICARE ADVANTAGE [place] (MEDICARE REPLACEMENT/ADV ANTAGE - PPO) Bhumi Piersonira [id number] Bhumi Poole Notes Date Note Type Note [...] ..................... ..................... ..................... ..................... ..................... ..................... ............... Head Housekeeper Note From Yaniv Renee: Pt presents A@Ox4 [...] ..................... ..................... ..................... ..................... ............... Disposition: Misty Parada MD [address] [facility],[address], [place], [address], [place] [employer] 04/26/2022 17:22:09 11/06/2022 text/html HPI: HX: DM [...] ..................... ..................... ..................... ..................... ..................... ..................... ............... Head Housekeeper Note From Chloe Joe: PT sustained a mechanical fall last night [...] 50. UA dipstick was performed and uploaded. contacted and advised to withhold glipizide and follow up with PCP related to BGS, apply cold compress to affected area. PT education was provided related to symptom worsening and PT was advised to seek assistance from family when moving in the home. [facility] Lab Orders: urinalysis, dipstick: Performed Comment: Unremarkable glucose, fingerstick, blood: Performed Comment: 50-Rx Glipizide discussed w/ family and PT ..................... ..................... ..................... ..................... ..................... ..................... ............... Disposition: Fulfilled Daisy Butler MD [address] [facility],[address], [place], [address], [employer] 11/06/2022 13:53:33 07/14/2023 text/html ROS as noted in the HPI This was a supervised home visit with laundry manager Ramiro Jean. HPI: Hx: Follicular lymphoma.Daughter calling as patient bothered by persistent cough and weakness for several weeks. Phlegm noted now to be green. No fever or ear pain. ..................... ..................... ..................... ..................... ..................... ..................... ............... CRC Nurse Triage Notes (Princess Mayo): Comments: CRC RN DID NOT NEED FURTHER INFO ..................... ..................... ..................... ..................... ..................... ..................... ............... Head Housekeeper Note From Ramiro Jean: Pt reports for [...] ..................... ............... Disposition: Fulfilled Siddhartha Noyola MD [address] [place] [address],[address] [facility], [place], [address], [facility] - [email or web address] 07/14/2023 11:16:26 07/16/2023 text/html HPI: Call returned to Bhumi Poole to triage below. Spoke with daughter who is on HIPAA. Pt seen last week by [email or web address]. Pt having yellow discharge on right eye x 1 day. Pt having redness of white of eye. No swelling of eye lid. No itching or pain. Also having nasal secretions. Pt eye was crusted shut this morning. Pt advised of disposition, agrees to [email or web address] eval as unable to come into [facility] and no standing order for antibiotic eye drops at our facility. Confirmed allergies and contact information including address. ..................... ..................... ..................... ..................... ..................... ..................... ............... CRC Nurse Triage Notes (Princess Mayo): Comments: CRC RN DID NOT NEED FURTHER INFO Member is safe and stable to wait till 07/16 ..................... ..................... ..................... ..................... ..................... ..................... ............... Head Housekeeper Note From Fred Lawrence: Patient conscious alert and oriented times three. Information through Head Of Commission Department due to strong language barrier. Patient complains of burning itching, redness to right eye times six hours. Patient has been being treated for a viral cold symptoms with benzonatate and cetirizine. Patient reports blurred vision in right eye. Patient denies any other pain or complaints. Patient reports cough is better than it was on Friday.[place] warm and dry, secondary exam unremarkable. right eye red with some pus, no swelling. Pic attached [facility] recommends, supportive care, including wet compresses, and lubricating eyedropsPatient and daughter caregiver demonstrate understanding of condition and plan. Patient states she will follow up with corn husker machine operator MAXIMO. Red flags and patient education discussed ..................... ..................... ..................... ..................... ..................... ..................... ............... Disposition: Misty Jaquez MD [address] [facility],[address], [place], [address], [facility] - [employer] 07/16/2023 21:41:18 OBGyn Episode No OBEpisode recorded.
--- OUTSIDE RECORDS SUMMARY | 2025-03-01 17:18 | XMS_ITS | Clinical Summary ---
Author Organization [facility] Address [address] [place] [address] Phone Care Team Providers Care Truck Shop Supervisor Name Role Phone Unavailable Primary Care Provider [...]
== END 2025-03-01 13:25 ==
LOC: HO.MAMMO 13:24
PROVIDERS: PCP General Practice; Visit Provider General Practice
DX: Z12.31 Encounter for screening mammogram for malignant neoplasm of breast (principal)
CPT/HCPCS: 77063; 77067

== ENCOUNTER → 2025-03-01 14:00 | Outpatient (BNV) | payer MEDICARE, SELFPAY | PROVIDERS: PCP General Practice; Visit Provider Internal Medicine | DX: Z12.31 Encounter for screening mammogram for malignant neoplasm of breast (principal) | CPT/HCPCS: 77063; 77067 ==